=== PATIENT | female | born 1995 | race Caucasian/White ===

== ENCOUNTER 2016-06-15 14:41 | Emergency (ER) | payer MEDICAID ==
--- NOTE | 2016-06-15 15:28 | PD ---
HPI Chief Complaint NST in office due to decreased movement with small deceleration noted. Sent here for evaluation Date Seen: Jun 15, 2016 Time Seen: 15:10 Travel History International Travel<30 Days: No Contact w/Intl Traveler<30Days: No Known Affected Area: No History of Present Illness HPI 20yo at 60h2veh c/o decreased FM this morning. After deceleration of FHR in office patient sent here for evaluation Para: 0 : 1 History Past Medical History Narrative Medical Hypothyroidism diagnosed this Past Surgical History Surgical History: No Previous Surgery Family History Family History: Negative Social History Alcohol Use: No Tobacco Use: No Substance Abuse: No Allergies-Medications (Allergen,Severity, Reaction): Coded Allergies: No Known Allergies (Verified , 11/17/15) Home Meds No Active Prescriptions or Reported Meds Review of Systems Except as stated in HPI: all other systems reviewed are Neg Physical Exam Narrative GENERAL: Well-nourished, well-developed patient. SKIN: Warm and dry. HEAD: Normocephalic and atraumatic. EYES: No scleral icterus. No injection or drainage. ENT: No nasal drainage noted. Mucous membranes pink. Airway patent. NECK: Supple, trachea midline. No JVD. CARDIOVASCULAR: Regular rate and rhythm without murmurs, gallops, or rubs. RESPIRATORY: Breath sounds equal bilaterally. No accessory muscle use. BREASTS: Bilateral exam showed no masses , no retractions, no nipple discharge. ABDOMEN/GI: Abdomen soft, non-tender, bowel sounds present, no rebound, no guarding Gravid to [-] 37weeks size Fundal Height:37 [-] GENITOURINARY: External Genitalia: intact and normal in appearance BUS glands: [-]nl Cervix: [-]deferred Dilatation: [-] Effacement: [-] Station: [-] Presentation: [-] Membranes: [intact or ruptured] Uterine Contractions: [-] FHT's: Category: [-] 1 Baseline: [-] 145 Reactive: [-] moderate Variability: [-] moderate Decels: [-] absent EXTREMITIES: No cyanosis or edema. BACK: Nontender without obvious deformity. No CVA tenderness. NEUROLOGICAL: Awake and alert. Motor and sensory grossly within normal limits. Five out of 5 muscle strength in all muscle groups. Normal speech. Data Data Vital Signs Reviewed: Yes MDM Medical Record Reviewed: Yes Narrative Course / MDM BPP 12/15 monitoring absent of decelerations since arrival Patient has followup tomorrow Plan Discharge with followup as scheduled Diagnosis Diagnosis: Primary Impression: Decreased movement affecting management of in third trimester Additional Impressions: Hypothyroidism affecting in third trimester 36 weeks gestation of Disposition: DISCHARGE HOME Scripts No Active Prescriptions or Reported Meds Sophie Small MD Jun 15, 2016 15:28
== END 2016-06-15 16:04 | disposition home or self-care (01) ==
LOC: HOBED 14:41
DX: O36.8130 Decreased fetal movements, third trimester, not applicable or unspecified (principal); E03.9 Hypothyroidism, unspecified; Z3A.36 36 weeks gestation of pregnancy
CPT/HCPCS: 76816; 76819

== ENCOUNTER 2016-07-06 02:44 | Inpatient (IN) | payer MEDICAID ==
[~2016-07-06] VITALS: Ht 162.6 cm; Wt 81.2 kg
[2016-07-06] VITALS (88 sets, daily range): BP systolic 93–142; BP diastolic 46–97; PULSE 51–197; RESP 1–20; TEMP 97.7–98.6; O2SAT 97
[2016-07-06] MEDS ORDERED: LACTATED RINGER'S 1000 ML INJ 1,000 ML IV SCH (03:19)
[2016-07-06] MEDS ORDERED: LACTATED RINGER'S 1000 ML INJ 1,000 ML IV PRN (03:19)
--- NOTE | 2016-07-06 03:20 | PD ---
HPI Chief Complaint Contractions, rupture membranes Date Seen: Jul 06, 2016 Time Seen: 03:00 Travel History International Travel<30 Days: No Contact w/Intl Traveler<30Days: No History of Present Illness HPI Ms. Costa is a 20-year-old G1 patient of Dr. Olson at 39 2/7 weeks (MELODY 07/11) who presents with complaint of ruptured membranes and contractions. Patient reports gross rupture of membranes approximately 2 hours ago; patient reports that contractions started shortly afterwards. Over the past 2 hours, patient reports increased pain with contractions. Patient reports that she is GBS negative. Patient has history of hypothyroidism diagnosed in ; patient takes Synthroid 50 g daily. Patient also reports smoking approximately 210 cigarettes daily. No drinking or drug use. Patient otherwise denies complications. Para: 0 : 1 History Past Medical History Narrative Medical Hypothyroidism diagnosed during Tobacco abuse during Obstetric History Obstetric History G1 Past Surgical History Narrative Surgical Tonsillectomy Family History Narrative Family History No significant family history reported Social History Alcohol Use: No Tobacco Use: Yes (210 cigarettes daily) Substance Abuse: No Allergies-Medications (Allergen,Severity, Reaction): Coded Allergies: No Known Allergies (Verified , 11/17/15) Home Meds No Active Prescriptions or Reported Meds Review of Systems General / Constitutional: No: Fever, Chills Eyes: No: Blurred Vision HENT: No: Headaches Cardiovascular: No: Chest Pain or Discomfort Respiratory: Short of Breath (intermittent during ), No: Cough Gastrointestinal: No: Nausea, Vomiting Psychiatric: No: Anxiety Physical Exam Narrative Vital signs: Temp 90 8F, HR 89, BP 132/84, respirations 18 GENERAL: Well-nourished, well-developed patient. SKIN: Warm and dry. HEAD: Normocephalic and atraumatic. EYES: No scleral icterus. No injection or drainage. ENT: No nasal drainage noted. Mucous membranes pink. Airway patent. NECK: Supple, trachea midline. CARDIOVASCULAR: Regular rate and rhythm without murmurs; normal peripheral perfusion RESPIRATORY: Clear to escalation bilaterally; normal rate ABDOMEN/GI: Abdomen soft, non-tender, bowel sounds present, no rebound, no guarding Gravid EXTREMITIES: No cyanosis or edema. NEUROLOGICAL: Awake and alert. Motor and sensory function grossly within normal limits. GENITOURINARY: Exam performed by nursing staff External Genitalia: intact and normal in appearance Cervix: Dilatation: 1 Effacement: 80% Station: -1 Presentation: Vertex Membranes: Ruptured Uterine Contractions: Q13 minutes FHT's: Category: 1 Baseline: 125 Reactive: Yes Variability: Moderate Decels: None Data Data Vital Signs Reviewed: Yes Orders Ob (2e) Additional Admit Info (07/06/16 02:56) MDM Medical Record Reviewed: Yes Narrative Course / MDM 20-year-old G1 patient of Dr. Olson at 39 2/7 weeks (MELODY 07/11/2016) Assessment: Category 1 rhythm Gross rupture of membranes at approximately 0100 07/06 Cervix 12/80%/-1, vertex GBS negative Maternal history of hypothyroidism controlled with levothyroxine 50 g daily Plan: Will plan to admit patient for labor Will obtain routine labs (Blood typing/hold clot/UA) Continue EFM; continue to monitor maternal vitals Patient requests epidural Per review of records (Dr. Olson's patient), will plan for TSH testing post- Scripts No Active Prescriptions or Reported Meds Audie Eldridge MD R2 Jul 06, 2016 03:19
[2016-07-06] MEDS ORDERED: LIDOCAINE HCL 1% 50 ML VIAL INFIL PRN (03:30)
[2016-07-06] MEDS ORDERED: MINERAL OIL 10 ML VIAL TOPICAL PRN (03:30)
[2016-07-06] MEDS ORDERED: CITRIC ACID-SODIUM CITRATE LIQ 30 ML UDC PO SCH (03:30)
[2016-07-06] MEDS ORDERED: OXYTOCIN 30 UNITS-500ML PREMIX 500 ML IV ONE ×2 (03:30→14:00)
[2016-07-06] MEDS ORDERED: LIDOCAINE HCL 1% 50 ML VIAL I-DERMAL PRN (03:30)
[2016-07-06] MEDS ORDERED: SODIUM CHLORID 0.9% 500 ML INJ 500 ML IV PRN (03:30)
--- NOTE | 2016-07-06 03:35 | HHI.HP ---
History & Physical H&P OB ED Note (Detail) Patient Name: Raina Costa Unit Number: [id number] Date of : 1995 Patient Status: Admitted Inpatient Attending Doctor: Howie Olson MD HPI HPI Chief Complaint Contractions, rupture membranes Date Seen: Jul 06, 2016 Time Seen: 03:00 Travel History International Travel<30 Days: No Contact w/Intl Traveler<30Days: No History of Present Illness HPI Ms. Costa is a 20-year-old G1 patient of Dr. Olson at 39 2/7 weeks (MELODY 07/11) who presents with complaint of ruptured membranes and contractions. Patient reports gross rupture of membranes approximately 2 hours ago; patient reports that contractions started shortly afterwards. Over the past 2 hours, patient reports increased pain with contractions. Patient reports that she is GBS negative. Patient has history of hypothyroidism diagnosed in ; patient takes Synthroid 50 g daily. Patient also reports smoking approximately 210 cigarettes daily. No drinking or drug use. Patient otherwise denies complications. Para: 0 : 1 History (Limited) History Past Medical History Narrative Medical Hypothyroidism diagnosed during Tobacco abuse during Obstetric History Obstetric History G1 Past Surgical History Narrative Surgical Tonsillectomy Family History Narrative Family History No significant family history reported Social History Alcohol Use: No Tobacco Use: Yes (210 cigarettes daily) Substance Abuse: No Allergies-Medications Allergies-Medications (Allergen,Severity, Reaction): Coded Allergies: No Known Allergies (Verified , 11/17/15) Home Meds No Active Prescriptions or Reported Meds ROS Review of Systems General / Constitutional: No: Fever, Chills Eyes: No: Blurred Vision HENT: No: Headaches Cardiovascular: No: Chest Pain or Discomfort Respiratory: Short of Breath (intermittent during ), No: Cough Gastrointestinal: No: Nausea, Vomiting Psychiatric: No: Anxiety Physical Exam Physical Exam Narrative Vital signs: Temp 90 8F, HR 89, BP 132/84, respirations 18 GENERAL: Well-nourished, well-developed patient. SKIN: Warm and dry. HEAD: Normocephalic and atraumatic. EYES: No scleral icterus. No injection or drainage. ENT: No nasal drainage noted. Mucous membranes pink. Airway patent. NECK: Supple, trachea midline. CARDIOVASCULAR: Regular rate and rhythm without murmurs; normal peripheral perfusion RESPIRATORY: Clear to escalation bilaterally; normal rate ABDOMEN/GI: Abdomen soft, non-tender, bowel sounds present, no rebound, no guarding Gravid EXTREMITIES: No cyanosis or edema. NEUROLOGICAL: Awake and alert. Motor and sensory function grossly within normal limits. GENITOURINARY: Exam performed by nursing staff External Genitalia: intact and normal in appearance Cervix: Dilatation: 1 Effacement: 80% Station: -1 Presentation: Vertex Membranes: Ruptured Uterine Contractions: Q13 minutes FHT's: Category: 1 Baseline: 125 Reactive: Yes Variability: Moderate Decels: None Data Data Data Vital Signs Reviewed: Yes Orders Ob (2e) Additional Admit Info (07/06/16 02:56) MDM MDM Medical Record Reviewed: Yes Narrative Course / MDM 20-year-old G1 patient of Dr. Olson at 39 2/7 weeks (MELODY 07/11/2016) Assessment: Category 1 rhythm Gross rupture of membranes at approximately 0100 07/06 Cervix 12/80%/-1, vertex GBS negative Maternal history of hypothyroidism controlled with levothyroxine 50 g daily Plan: Will plan to admit patient for labor Will obtain routine labs (Blood typing/hold clot/UA) Continue EFM; continue to monitor maternal vitals Patient requests epidural Per review of records (Dr. Olson's patient), will plan for TSH testing post- Audie Eldridge MD R2 Jul 06, 2016 03:34
[2016-07-06] MEDS ORDERED: SODIUM CHLOR 0.9% 1000 ML INJ 1,000 ML IV PRN (03:39)
[2016-07-06 03:58] LABS: AUTOMATED NEUTROPHIL # 8.7 TH/MM3 (1.8-7.7); BASOPHIL # 0.1 TH/MM3 (0-0.2); BASOPHIL % 0.5 % (0.0-2.0); EOSINOPHIL # 0.3 TH/MM3 (0-0.4); EOSINOPHIL % 1.9 % (0.0-4.0); HEMO FLAGS DIFF FINAL; LYMPH % 27.2 % (9.0-44.0); LYMPHOCYTE # 3.8 TH/MM3 (1.0-4.8); MEAN CELL VOLUME 86.3 FL (80.0-100.0); MEAN CORPUSCULAR HEMOGLOBIN 29.5 PG (27.0-34.0); MEAN CORPUSCULAR HGB CONC 34.2 % (32.0-36.0); MONO % 7.7 % (0.0-8.0); NEUT % 62.7 % (16.0-70.0); PLATELET COUNT 263 TH/MM3 (150-450); RED BLOOD COUNT 4.41 MIL/MM3 (4.00-5.30); WHITE BLOOD COUNT 13.9 TH/MM3 (4.0-11.0)
[2016-07-06] MEDS ORDERED: CALNTAB (03:59)
[2016-07-06] MEDS ORDERED: LEVO50TA4 PO (03:59)
[2016-07-06 04:05] LABS: BACTERIA, URINE RARE /hpf; BLOOD, URINE TRACE (NEG); COMMENT (UR) CULT NOT INDICATED; CULTURE IF INDICATED CULT NOT INDICATED; GLUCOSE,URINE NEG (NEG); KETONE, URINE NEG (NEG); MUCUS URINE FEW /lpf (OCC); NITRITE,URINE NEG (NEG); PH, URINE 5.5 (5.0-8.5); SQUAMOUS EPITHELIAL CELL URINE 10 /hpf (0-5); URINE COLOR YELLOW (YELLW/STRAW)
[2016-07-06] MEDS ORDERED: fentaNYL 2MCG-BUPIV 0.125% INJ 100 ML ONE (04:11)
[2016-07-06] MEDS ORDERED: NO SYSTEM NARCOTICS XX PRN (05:45)
[2016-07-06] MEDS ORDERED: ePHEDrine/NS 25 MG/5 ML SYR IV PRN (05:45)
[2016-07-06] MEDS ORDERED: fentaNYL 2MCG-BUPIV 0.125% 100 ML EPIDURAL SCH (05:45)
[2016-07-06] MEDS ORDERED: DO NOT ADMINISTER ANTICOAGULANTS XX PRN (05:45)
[2016-07-06] MEDS ORDERED: OXYTOCIN 30 UNITS/NS 500ML PREMIX IV SCH (08:00)
--- NOTE | 2016-07-06 13:58 | PD.OB.DELI ---
Anesthesia: Epidural Episiotomy: None Vaginal Delivery: Normal, Vacuum Nuchal Cord: None Delayed cord clamping (45 sec): Yes Infant: Male One Minute : 8 Five Minute : 9 Weight: 7/8 Care: Suctioned, Spontaneous crying, Responded to stimulation Placenta: Spontaneous delivery, Uterus explored +, 3 vessel cord Laceration: Perineal laceration, 2 deg Repair: Vicryl running Additional Information nice vacuum delivery of Yo Vacuum thru 3 uterine contractions with no pulloffs. Second degree perineal tear and first degree tear of right labia repaired with 3 -0 vicryl Howie Olson MD Jul 06, 2016 13:58
[2016-07-06] MEDS ORDERED: BENZOCAINE 20% TOPICAL SPRAY 60 ML CAN TOPICAL PRN (14:00)
[2016-07-06] MEDS ORDERED: ONDANSETRON ODT 4 MG TAB PO PRN (14:00)
[2016-07-06] MEDS ORDERED: oxyCODONE/ACETAMINOPHEN 5 MG/325 MG TAB PO PRN (14:00)
[2016-07-06] MEDS ORDERED: ACETAMINOPHEN 325 MG TAB PO PRN (14:00)
[2016-07-06] MEDS ORDERED: ALUMINUM/MAGNESIUM/SIMETH 30 ML CUP PO PRN (14:00)
[2016-07-06] MEDS ORDERED: ZOLPIDEM TARTRATE 5 MG TAB PO PRN (14:00)
[2016-07-06] MEDS ORDERED: SODIUM CHLORIDE 0.9% FLUSH 5 ML FLUSH IV PRN (14:00)
[2016-07-06] MEDS: IBUPROFEN 600 MG TAB PO PRN ×2 (14:43→21:13)
[2016-07-06] MEDS ORDERED: DEXTROSE (INFANT/PEDS) GEL 2.5 ML/GM (40%) TUBE ONE (15:02)
[2016-07-06] MEDS ORDERED: MEASLES, MUMPS, RUBELLA VACCINE 0.5 ML VIAL SQ ONE (16:00)
[2016-07-06] MEDS ORDERED: DIPHTH/TETANUS/ACEL PERTUSSIS (BOOSTER) 0.5 ML VIAL/PFS IM ONE (16:00)
[2016-07-06] MEDS: WITCH HAZEL 50%/GLYCERIN 12.5% 40 PAD JAR TOPICAL PRN (16:35)
[2016-07-06] MEDS: oxyCODONE/ACETAMINOPHEN 5 MG/325 MG TAB PO PRN (16:36)
[2016-07-06] MEDS ORDERED: SODIUM CHLORIDE 0.9% FLUSH 5 ML FLUSH IV SCH (21:00)
[2016-07-06] MEDS: DOCUSATE SODIUM 50 MG/SENNA 8.6 MG TAB PO PRN (21:12)
[2016-07-07] MEDS: IBUPROFEN 600 MG TAB PO PRN ×2 (07:55→14:30)
[2016-07-07 08:00] VITALS: BP 111/67; PULSE 58; RESP 16; TEMP 98.4
--- NOTE | 2016-07-07 09:01 | HHI.OB ---
Subjective Post Day: 1 Objective Vitals/I&O Vital Signs Date Time Temp Pulse Resp B/P Pulse Ox O2 Delivery O2 Flow Rate FiO2 07/06/16 21:00 97.7 07/06/16 21:00 51 136/82 07/06/16 21:00 20 97 07/06/16 14:35 98.6 18 07/06/16 14:31 56 121/71 07/06/16 14:18 52 135/73 07/06/16 14:16 114/92 07/06/16 14:01 57 125/65 07/06/16 13:32 70 112/69 07/06/16 13:15 112/88 07/06/16 13:01 65 93/46 07/06/16 12:46 117/95 07/06/16 12:31 57 117/77 07/06/16 12:15 57 139/96 07/06/16 12:01 68 129/80 07/06/16 11:50 71 07/06/16 11:46 67 128/81 07/06/16 11:40 66 07/06/16 11:35 61 07/06/16 11:31 60 132/76 07/06/16 11:30 60 07/06/16 11:25 89 07/06/16 11:20 81 07/06/16 11:16 79 142/83 07/06/16 11:15 59 07/06/16 11:10 88 07/06/16 11:05 113 07/06/16 11:01 78 121/78 07/06/16 11:00 73 07/06/16 10:55 83 07/06/16 10:50 72 07/06/16 10:45 81 140/84 07/06/16 10:40 94 07/06/16 10:35 75 07/06/16 10:31 76 124/65 07/06/16 10:30 77 07/06/16 10:25 75 07/06/16 10:20 79 07/06/16 10:16 70 125/79 07/06/16 10:15 78 07/06/16 10:10 83 07/06/16 10:05 74 07/06/16 10:00 85 118/90 07/06/16 10:00 74 07/06/16 09:55 88 07/06/16 09:50 69 07/06/16 09:47 113 126/59 07/06/16 09:45 79 07/06/16 09:45 98.1 18 07/06/16 09:40 72 07/06/16 09:35 76 07/06/16 09:30 78 07/06/16 09:30 75 129/80 07/06/16 09:28 18 07/06/16 09:25 84 07/06/16 09:20 81 07/06/16 09:16 68 131/74 07/06/16 09:15 74 07/06/16 09:10 83 07/06/16 09:05 85 07/06/16 09:00 81 123/76 07/06/16 09:00 82 07/06/16 08:55 66 Objective Remarks GENERAL: Well-nourished, well-developed patient. CARDIOVASCULAR: Regular rate and rhythm without murmurs, gallops, or rubs. RESPIRATORY: Breath sounds equal bilaterally. No accessory muscle use. ABDOMEN/GI: Abdomen soft, non-tender. Fundus: Firm, non-tender at umbilicus. GENITOURINARY: Light to moderate bleeding. EXTREMITIES: No cyanosis or edema, non-tender, without signs of DVT. Medications and IVs Current Medications Medications (Trade) Dose Ordered Sig/Maximus Route Start Time Stop Time Status Last Admin (NS Flush) 2 ml BID IV 07/06/16 21:00 (NS Flush) 2 ml UNSCH PRN IV 07/06/16 14:00 (Tylenol) 650 mg Q4H PRN PO 07/06/16 14:00 (Motrin) 600 mg Q6H PRN PO 07/06/16 14:00 07/07/16 07:55 (Percocet 5-325 Mg) 1 tab Q4H PRN PO 07/06/16 14:00 07/06/16 16:36 (Percocet 5-325 Mg) 2 tab Q4H PRN PO 07/06/16 14:00 (Americaine 20% Top Spr) 1 spray Q4H PRN TOPICAL 07/06/16 14:00 07/06/16 16:35 (Tucks Pads) 1 applic QID PRN TOPICAL 07/06/16 14:00 07/06/16 16:35 (Aracelis-Colace) 2 tab Q12H PRN PO 07/06/16 14:00 07/06/16 21:12 (Ambien) 5 mg HS PRN PO 07/06/16 14:00 (Mag-Al Plus Susp Liq) 15 ml Q8H PRN PO 07/06/16 14:00 (Zofran Odt) 4 mg Q6H PRN PO 07/06/16 14:00 Assessment/Plan Problem List: (1) Normal vaginal delivery Plan: routine Assessment and Plan pt doing well c/o pain at 8 when she moves, encouraged to take percocet for pain routine Discharge Planning consider dc home tomorrow Sandra Barboza Jul 07, 2016 09:01
[2016-07-07] MEDS: oxyCODONE/ACETAMINOPHEN 5 MG/325 MG TAB PO PRN ×3 (09:06→21:41)
[2016-07-07] MEDS: DOCUSATE SODIUM 50 MG/SENNA 8.6 MG TAB PO PRN (14:30)
[2016-07-07 20:00] VITALS: BP 123/78; PULSE 56; RESP 18; TEMP 98.1
[2016-07-08 08:25] VITALS: BP 141/84; PULSE 61; RESP 18; TEMP 97.8
[2016-07-08] MEDS ORDERED: OXYC1TAB63 PO (08:36)
[2016-07-08] MEDS ORDERED: IBUP-232 PO (08:36)
--- NOTE | 2016-07-08 09:44 | HHI.OB ---
Subjective Post Day: 2 Objective Vitals/I&O Vital Signs Date Time Temp Pulse Resp B/P Pulse Ox O2 Delivery O2 Flow Rate FiO2 07/07/16 20:00 123/78 07/07/16 20:00 98.1 56 18 Objective Remarks GENERAL: Well-nourished, well-developed patient. CARDIOVASCULAR: Regular rate and rhythm without murmurs, gallops, or rubs. RESPIRATORY: Breath sounds equal bilaterally. No accessory muscle use. ABDOMEN/GI: Abdomen soft, non-tender. Fundus: Firm, non-tender at umbilicus. GENITOURINARY: Light to moderate bleeding. EXTREMITIES: No cyanosis or edema, non-tender, without signs of DVT. Medications and IVs Current Medications Medications (Trade) Dose Ordered Sig/Maximus Route Start Time Stop Time Status Last Admin (NS Flush) 2 ml BID IV 07/06/16 21:00 (NS Flush) 2 ml UNSCH PRN IV 07/06/16 14:00 (Tylenol) 650 mg Q4H PRN PO 07/06/16 14:00 (Motrin) 600 mg Q6H PRN PO 07/06/16 14:00 07/07/16 14:30 (Percocet 5-325 Mg) 1 tab Q4H PRN PO 07/06/16 14:00 07/07/16 21:41 (Percocet 5-325 Mg) 2 tab Q4H PRN PO 07/06/16 14:00 (Americaine 20% Top Spr) 1 spray Q4H PRN TOPICAL 07/06/16 14:00 07/06/16 16:35 (Tucks Pads) 1 applic QID PRN TOPICAL 07/06/16 14:00 07/06/16 16:35 (Aracelis-Colace) 2 tab Q12H PRN PO 07/06/16 14:00 07/07/16 14:30 (Ambien) 5 mg HS PRN PO 07/06/16 14:00 (Mag-Al Plus Susp Liq) 15 ml Q8H PRN PO 07/06/16 14:00 (Zofran Odt) 4 mg Q6H PRN PO 07/06/16 14:00 Assessment/Plan Problem List: (1) Normal vaginal delivery Plan: routine Assessment and Plan day #2 pt doing well pain well managed with oral pain medication infant having difficulty with sugar, may have to stay routine Discharge Planning dc home today Sandra Barboza Jul 08, 2016 09:44
--- NOTE | 2016-07-08 09:48 | HHI.DCPOC ---
Discharge Care Plan Diagnosis: (1) Normal vaginal delivery Your Health Problems Are: Vaginal delivery Report Symptoms to Your Doctor -Temperate above 100.5 degrees -Redness, of incision or excessive or foul smelling drainage -Unusual pain or calf pain -Increased vaginal bleeding -Painful or difficulty urinating -Feelings of extreme sadness or anxiety after 2 weeks Goals to Promote Your Health * To prevent worsening of your condition and complications * To maintain your health at the optimal level Directions to Meet Your Goals Take your medications as prescribed Follow your dietary instruction Follow activity as directed Ensure plenty of rest for recovery Drink fluids for hydration Keep your appointments as scheduled Take your immunizations and boosters as scheduled If your symptoms worsen call your PCP, if no PCP go to Urgent Care Center or Emergency Room Smoking is Dangerous to Your Health. Avoid second hand smoke Call the 24-hour crisis hotline for domestic abuse at Sandra Barboza Jul 08, 2016 09:48
--- NOTE | 2016-07-08 09:52 | HHI.DS ---
Admission Date Jul 06, 2016 at 02:57 Discharge Date: Jul 08, 2016 Admitting Diagnosis term srom Diagnosis: (1) Normal vaginal delivery Delivery Date: Jul 06, 2016 Vaginal Delivery: Normal Infant: Male Brief History 39 week srom . Hospital Course routine Pt Condition on Discharge: Good Discharge Disposition: Discharge Home Discharge Instructions Diet Instructions: As Tolerated, No Restrictions Additional Diet Instructions: Drink at least 8 - 16 oz bottles of water a day Activities You Can Perform: Shower Only-No Bath, Sitz Bath Activities to Avoid: Lifting/Bending, Sexual Activity Additional Activity Instruc.: No driving until off pain medications Do not lift anything heavier than your baby in an infant carrier Follow up Referrals: NOCTURNIST PHYSICIAN - 2 Weeks @ [facility] [place] New Medications: Ibuprofen (Ibuprofen) 600 Mg Tab 600 MG PO Q6H PRN CRAMPING #30 TAB Oxycodone-Acetaminophen (Oxycodone-Acetaminophen) 5-325 mg Tab 1 TAB PO Q4H moderate pain #15 TAB Continued Medications: Levothyroxine (Levothyroxine) 50 Mcg Tab 50 MCG PO DAILY Thyroid #30 Ref 0 TAB Vitamin (Calna) 1 Tab Tab Sandra Barboza Jul 08, 2016 09:52
[2016-07-08] MEDS: WITCH HAZEL 50%/GLYCERIN 12.5% 40 PAD JAR TOPICAL PRN (10:56)
[2016-07-08] MEDS: oxyCODONE/ACETAMINOPHEN 5 MG/325 MG TAB PO PRN (11:00)
== END 2016-07-08 11:40 | disposition home or self-care (01) | DRG 775 ==
LOC: HOBED 02:44 → H2EA 02:57 → H1EA 15:13
PROVIDERS: ADMIT Obstetrics & Gynecology; ATTEND Obstetrics & Gynecology
PROC: 10D07Z6 Extraction of Products of Conception, Vacuum, Via Natural or Artificial Opening (ICD-10-PCS; principal; 2016-07-06)
PROC: 0KQM0ZZ Repair Perineum Muscle, Open Approach (ICD-10-PCS; 2016-07-06)
PROC: 00HU33Z Insertion of Infusion Device into Spinal Canal, Percutaneous Approach (ICD-10-PCS; 2016-07-06)
PROC: 3E0R3CZ (ICD-10-PCS; 2016-07-06)
DX: O99.334 Smoking (tobacco) complicating childbirth (principal); E03.9 Hypothyroidism, unspecified; F17.210 Nicotine dependence, cigarettes, uncomplicated; O99.284 Endocrine, nutritional and metabolic diseases complicating childbirth; Z3A.39 39 weeks gestation of pregnancy; O70.1 Second degree perineal laceration during delivery; Z37.0 Single live birth
CPT/HCPCS: 81001; 85025; 86900; 86901; 90715; 99285; J2590; J7120

== ENCOUNTER 2017-04-18 12:09 | Inpatient (IN) | payer MEDICAID, OTHER ==
[~2017-04-18] VITALS: Ht 162.6 cm; Wt 62.5 kg
[2017-04-18] VITALS (8 sets, daily range): BP systolic 99–123; BP diastolic 58–74; PULSE 80–119; RESP 16–18; TEMP 96.9–98; O2SAT 95–100
[~2017-04-18 12:09] MED LIST: CALNTAB; IBUP-232 PO; LEVO50TA4 PO; OXYC1TAB63 PO
[2017-04-18] MEDS ORDERED: ETONOGESTREL I-DERMAL (12:38)
[2017-04-18] MEDS ORDERED: KETOROLAC TROMETHAMINE 60 MG/2 ML (IM) VIAL IM ONE (12:45)
--- NOTE | 2017-04-18 12:46 | PD ---
HPI Chief Complaint: Edema Time Seen by Provider: 12:43 Travel History International Travel<30 days: No Contact w/Intl Traveler<30days: No Traveled to known affect area: No History of Present Illness HPI Patient presents with acute onset of left lower extremity pain and swelling when she awoke this morning. She is on implanted control and is a smoker. Reports slight shortness of breath with discomfort on deep inspiration. Denies . Denies nausea vomiting diarrhea or fever. PFSH Past Medical History Asthma: Yes ( CHILD) Anxiety: Yes Depression: Yes Diabetes: No Diminished Hearing: No Immunizations Current: Yes Thyroid Disease: Yes (hx of hypo while ) Tetanus Vaccination: Unknown Influenza Vaccination: No ?: Not LMP: currently states for months since enxplanon implant Menopausal: No : 0 Past Surgical History Surgical History: No Previous Surgery Tonsillectomy: Yes Social History Alcohol Use: Yes (occas. beer) Tobacco Use: Yes (3/4 ppd ) Substance Use: No (OCCASIONAL MARIJUANA PRIOR TO /METHAMPHETAMINES REMOTE PAST) Allergies-Medications (Allergen,Severity, Reaction): Coded Allergies: No Known Allergies (Verified Adverse Reaction, Unknown, 04/18/17) Reported Meds & Prescriptions Reported Meds & Active Scripts Active Reported [enxplanon implant] Unknown Strength Unknown Dose I-DERMAL DIRECTED Review of Systems Respiratory: Positive: Shortness of Breath Musculoskeletal: Positive: Edema, Pain Physical Exam Narrative GENERAL: Well-nourished, well-developed patient. SKIN: Focused skin assessment warm/dry. HEAD: Normocephalic. EYES: No scleral icterus. No injection or drainage. NECK: Supple, trachea midline. No JVD or lymphadenopathy. CARDIOVASCULAR: Regular rate and rhythm without murmurs, gallops, or rubs. RESPIRATORY: Breath sounds equal bilaterally. No accessory muscle use. GASTROINTESTINAL: Abdomen soft, non-tender, nondistended. MUSCULOSKELETAL: No cyanosis, or edema. BACK: Nontender without obvious deformity. No CVA tenderness. Examination lower extremities reveals increased size and erythema of the left lower extremity. Bilateral femoral pulses are palpated. Difficult to ascertain a left dorsal pedis pulse, right dorsal pedis pulse palpated Data Data Last Documented VS Vital Signs Date Time Temp Pulse Resp B/P (MAP) Pulse Ox O2 Delivery O2 Flow Rate FiO2 04/18/17 14:30 88 16 99 Nasal Cannula 2.00 04/18/17 14:15 99/71 (80) 04/18/17 12:14 97.5 Orders Orders Us Leg Venous Doppler (04/18/17 ) Ketorolac Inj (Toradol Inj) (04/18/17 12:45) Complete Blood Count With Diff (04/18/17 13:30) Comprehensive Metabolic Panel (04/18/17 13:30) D-Dimer (04/18/17 13:30) Act Partial Throm Time (Ptt) (04/18/17 13:30) Prothrombin Time / Inr (Pt) (04/18/17 13:30) Iv Access Insert/Monitor (04/18/17 13:30) Ecg Monitoring (04/18/17 13:30) Oximetry (04/18/17 13:30) Oxygen Administration (04/18/17 13:30) Ct Pulmonary Angiogram (04/18/17 13:30) Sodium Chloride 0.9% Flush (Ns Flush) (04/18/17 13:30) Ketorolac Inj (Toradol Inj) (04/18/17 13:45) Iohexol 350 Inj (Omnipaque 350 Inj) (04/18/17 14:19) Enoxaparin Inj (Lovenox Inj) (04/18/17 14:45) Admit To Inpatient (04/18/17 ) Inpatient Certification (04/18/17 ) Admit Order (Ed Use Only) (04/18/17 ) Diet Heart Healthy (04/18/17 Dinner) Activity Oob With Assistance (04/18/17 15:19) Notify Dr: Other (04/18/17 15:19) Labs Laboratory Tests Test 04/18/17 13:44 White Blood Count 13.6 TH/MM3 Red Blood Count 5.69 MIL/MM3 Hemoglobin 15.3 GM/DL Hematocrit 48.5 % Mean Corpuscular Volume 85.2 FL Mean Corpuscular Hemoglobin 26.9 PG Mean Corpuscular Hemoglobin Concent 31.5 % Red Cell Distribution Width 14.9 % Platelet Count 301 TH/MM3 Mean Platelet Volume 7.2 FL Neutrophils (%) (Auto) 80.1 % Lymphocytes (%) (Auto) 12.1 % Monocytes (%) (Auto) 5.9 % Eosinophils (%) (Auto) 0.9 % Basophils (%) (Auto) 1.0 % Neutrophils # (Auto) 11.0 TH/MM3 Lymphocytes # (Auto) 1.6 TH/MM3 Monocytes # (Auto) 0.8 TH/MM3 Eosinophils # (Auto) 0.1 TH/MM3 Basophils # (Auto) 0.1 TH/MM3 CBC Comment DIFF FINAL Differential Comment Prothrombin Time 11.3 SEC Prothromb Time International Ratio 1.1 RATIO Activated Partial Thromboplast Time 25.8 SEC D-Dimer Quantitative (PE/DVT) 5.54 MG/L FEU Blood Urea Nitrogen 10 MG/DL Creatinine 0.92 MG/DL Random Glucose 84 MG/DL Total Protein 8.6 GM/DL Albumin 3.8 GM/DL Calcium Level 9.0 MG/DL Alkaline Phosphatase 146 U/L Aspartate Amino Transf (AST/SGOT) 19 U/L Alanine Aminotransferase (ALT/SGPT) 25 U/L Total Bilirubin 0.7 MG/DL Sodium Level 138 MEQ/L Potassium Level 3.7 MEQ/L Chloride Level 104 MEQ/L Carbon Dioxide Level 25.8 MEQ/L Anion Gap 8 MEQ/L Estimat Glomerular Filtration Rate 76 ML/MIN MDM Medical Decision Making Medical Screen Exam Complete: Yes Emergency Medical Condition: Yes Differential Diagnosis DVT, pulmonary embolism, clotting disorder Narrative Course Assessment and plan discussed with patient at bedside. Given permission to speak to her mother who is in sprain. Discussed the case with her as well. Last [address] Angiography 04/18/17 1330 Signed Impressions: Service Date/Time: Tuesday, April 18, 2017 14:08 - CONCLUSION: Prominent diffuse bilateral pulmonary emboli. Mark Negron MD Lower Extremity Ultrasound 04/18/17 0000 Signed Impressions: Service Date/Time: Tuesday, April 18, 2017 13:07 - CONCLUSION: Extensive left lower extremity DVT. Kenton Jc MD Physician Communication Physician Communication Spoke with Dr. Jeffries who is in agreement will admit Diagnosis Primary Impression: DVT (deep venous thrombosis) Qualified Codes: I82.4Y2 - Acute embolism and thrombosis of unspecified deep veins of left proximal lower extremity Additional Impression: PE (pulmonary thromboembolism) Bravo Lepe MD Apr 18, 2017 12:46
--- NOTE | 2017-04-18 13:38 | RADRPT ---
EXAM DATE/TIME: 04/18/2017 13:07 [facility] COMPARISON: No previous studies available for comparison. INDICATIONS : Left leg pain. MEDICAL HISTORY : Hypothyroidism. Depression. Anxiety. SURGICAL HISTORY : Tonsillectomy. ENCOUNTER: Initial ACUITY: 1 day PAIN SCORE: 6/10 LOCATION: Left leg. TECHNIQUE: Venous ultrasound of the leg was performed from the inguinal ligament to the proximal calf. Real-toma e, color Doppler and spectral tracing, compression and augmentation techniques were used. FINDINGS: Extensive thrombus seen of the iliac vein, common femoral vein, superficial femoral vein and extendin g distally below the knee into the posterior tibial vein. Thrombus is also seen in the greater saphen ous vein. Deep femoral vein appears patent. CONCLUSION: Extensive left lower extremity DVT. Kenton Jc MD on April 18, 2017 at 13:33 Board Certified Radiologist. This report was verified electronically.
[2017-04-18] MEDS ORDERED: KETOROLAC TROMETHAMINE 30 MG/ML (IVP) VIAL IV PUSH ONE (13:45)
[2017-04-18] MEDS: SODIUM CHLORIDE 0.9% FLUSH 10 ML FLUSH IVF PRN ×2 (13:46→20:27)
[2017-04-18 13:48] LABS: BASOPHIL # 0.1 TH/MM3 (0-0.2); EOSINOPHIL # 0.1 TH/MM3 (0-0.4); EOSINOPHIL % 0.9 % (0.0-4.0); HEMATOCRIT 48.5 % (35.0-46.0); LYMPH % 12.1 % (9.0-44.0); LYMPHOCYTE # 1.6 TH/MM3 (1.0-4.8); MEAN CELL VOLUME 85.2 FL (80.0-100.0); MEAN CORPUSCULAR HEMOGLOBIN 26.9 PG (27.0-34.0); MEAN CORPUSCULAR HGB CONC 31.5 % (32.0-36.0); MONO % 5.9 % (0.0-8.0); NEUT % 80.1 % (16.0-70.0); PLATELET COUNT 301 TH/MM3 (150-450); RED BLOOD COUNT 5.69 MIL/MM3 (4.00-5.30); RED CELL DISTRIBUTION WIDTH 14.9 % (11.6-17.2); WHITE BLOOD COUNT 13.6 TH/MM3 (4.0-11.0)
[2017-04-18 13:55] LABS: CHLORIDE 104 MEQ/L (98-107); POTASSIUM 3.7 MEQ/L (3.5-5.1); SODIUM (NA) 138 MEQ/L (136-145)
[2017-04-18 13:58] LABS: ANION GAP 8 MEQ/L (5-15); BICARBONATE 25.8 MEQ/L (21.0-32.0)
[2017-04-18 13:59] LABS: BLOOD UREA NITROGEN 10 MG/DL (7-18)
[2017-04-18 14:00] LABS: HEMO FLAGS DIFF FINAL
[2017-04-18 14:01] LABS: ALT (GPT) 25 U/L (10-53)
[2017-04-18 14:02] LABS: AST (GOT) 19 U/L (15-37); GLOMERULAR FILTRATION RATE 76 ML/MIN (>89)
[2017-04-18 14:03] LABS: TOTAL BILIRUBIN ADULT 0.7 MG/DL (0.2-1.0)
[2017-04-18 14:04] LABS: ALKALINE PHOSPHATASE 146 U/L (45-117)
[2017-04-18 14:09] LABS: APTT (PATIENT) 25.8 SEC (24.3-30.1); INTERNATIONAL NORMALIZED RATIO 1.1 RATIO; PROTHROMBIN TIME - PATIENT 11.3 SEC (9.8-11.6)
[2017-04-18] MEDS ORDERED: IOHEXOL 350 MG/ML 10 ML VIAL (for RAD DIAG) IVCONTRAST ONE (14:19)
--- NOTE | 2017-04-18 14:28 | RADRPT ---
EXAM DATE/TIME: 04/18/2017 14:08 [facility] COMPARISON: No previous studies available for comparison. INDICATIONS : Left lower extremity DVT. Evaluate for pulmonary embolism. IV CONTRAST: 65 cc Omnipaque 350 (iohexol) IV RADIATION DOSE: 6.43 CTDIvol (mGy) MEDICAL HISTORY : Deep venous thrombosis. SURGICAL HISTORY : Tonsillectomy. ENCOUNTER: Initial ACUITY: 1 day PAIN SCALE: 5/10 LOCATION: chest TECHNIQUE: Volumetric scanning of the chest was performed using a pulmonary embolism protocol MIP images were re constructed. Using automated exposure control and adjustment of the mA and/or kV according to patien t size, radiation dose was kept as low as reasonably achievable to obtain optimal diagnostic quality images. DICOM format image data is available electronically for review and comparison. Follow-up recommendations for detected pulmonary nodules are based at a minimum on nodule size and pa tient risk factors according to Fleischner Society Guidelines. FINDINGS: PULMONARY ARTERIES: There are bilateral filling defects in the pulmonary arteries especially involving the lower lung fie lds. There are filling defects also noted in some of the branches involving the upper lung jones. Th is is characteristic of bilateral diffuse pulmonary emboli. LUNGS: There is no consolidation or pneumothorax . No concerning pulmonary nodule is visualized. PLEURAE: There is no pleural thickening or pleural effusion. MEDIASTINUM: There is good visualization of the great vessels of the middle mediastinum. No evidence of mediastin al or hilar adenopathy/mass. MUSCULOSKELETAL: Within normal limits for patient age. MISCELLANEOUS: The visualized upper abdominal organs demonstrate no acute abnormality. CONCLUSION: Prominent diffuse bilateral pulmonary emboli. Mark Negron MD on April 18, 2017 at 14:24 Board Certified Radiologist. This report was verified electronically.
[2017-04-18] MEDS ORDERED: ENOXAPARIN SODIUM 60 MG/0.6 ML SYRINGE SQ ONE (14:45)
[2017-04-18] MEDS ORDERED: SODIUM CHLOR 0.9% 1000 ML INJ 1,000 ML IV ONE (15:30)
--- NOTE | 2017-04-18 16:08 | HHI.HP ---
[facility] No Primary Care Physician Admission Diagnosis PE /DVT Diagnoses: Chief Complaint: PE/DVT Travel History International Travel<30 Days: No Contact w/Intl Traveler <30 Da: No Traveled to Known Affected Are: No History of Present Illness 21-year-old white female being admitted for pulmonary emboli and DVT. Patient was in her usual state of health until yesterday at some point when she began experiencing some shortness of breath and chest pain. Since then she said the chest pain has gone up to a 9/10 at its worse. She says she's had a relatively dry cough since then as well and has felt some fevers and chills. Lower prompted her to come to the emergency department was when she woke up this morning and had felt intense pain in her left lower leg which would worsen when she would put any weight on it. She said she took some ibuprofen to no avail. Patient denies this ever occurring in the past. She denies any recent injury or puncture injury to her left leg. Denies any nausea or vomiting. Patient states she does have a Nexplanon in her left arm and does smoke, has been smoking since 11 years old. Case discussed with emergency department attending. Review of Systems Except as stated in HPI: all other systems reviewed are Neg Past Family Social History Past Medical History Hypothyroidism Past Surgical History None Allergies: Coded Allergies: No Known Allergies (Verified Allergy, Unknown, 04/18/17) Family History No history of pulmonary emboli Father with a history of throat cancer Social History Current smoker Physical Exam Vital Signs Vital Signs Date Time Temp Pulse Resp B/P (MAP) Pulse Ox O2 Delivery O2 Flow Rate FiO2 04/18/17 14:30 88 16 99 Nasal Cannula 2.00 04/18/17 14:20 16 04/18/17 14:15 88 16 99/71 (80) 100 Nasal Cannula 2.00 04/18/17 13:47 16 100 Nasal Cannula 2.00 04/18/17 13:47 100 Nasal Cannula 2.00 04/18/17 13:05 86 16 108/71 (83) 100 Nasal Cannula 2.00 04/18/17 12:29 16 97 Room Air 04/18/17 12:14 97.5 119 16 123/74 (90 95 Physical Exam VS: afebrile GENERAL: NAD, well nourished white female SKIN: Warm and dry. EYES: No scleral icterus. No injection or drainage. ENT: No nasal bleeding or discharge. Mucous membranes pink and moist. CARDIOVASCULAR: Regular rate and rhythm. no murmurs RESPIRATORY: No accessory muscle use. Clear to auscultation. Breath sounds equal bilaterally. GASTROINTESTINAL: Abdomen soft, non-tender, nondistended. Extremities: No clubbing, cyanosis. LL is moderate to severely edematous and discolored. She is tender to touch on her proximal to lower thigh and she has pain in her thigh elicited upon left foot dorsiflexion. Patient has decreased sensation to light touch on her left foot toes in comparison to the right. Has slightly diminished Refill at about 2-3 seconds on the left foot compared to the right. Right lower extremity appears normal with negative exam. MUSCULOSKELETAL: Adequate muscle bulk and tone in all 4 extremities. NEUROLOGICAL: Awake and alert. No obvious cranial nerve deficits. No facial droop nor slurred speech noted. PSYCHIATRIC: Appropriate mood and affect; insight and judgment normal. Laboratory Laboratory Tests Test 04/18/17 13:44 White Blood Count 13.6 Red Blood Count 5.69 Hemoglobin 15.3 Hematocrit 48.5 Mean Corpuscular Volume 85.2 Mean Corpuscular Hemoglobin 26.9 Mean Corpuscular Hemoglobin Concent 31.5 Red Cell Distribution Width 14.9 Platelet Count 301 Mean Platelet Volume 7.2 Neutrophils (%) (Auto) 80.1 Lymphocytes (%) (Auto) 12.1 Monocytes (%) (Auto) 5.9 Eosinophils (%) (Auto) 0.9 Basophils (%) (Auto) 1.0 Neutrophils # (Auto) 11.0 Lymphocytes # (Auto) 1.6 Monocytes # (Auto) 0.8 Eosinophils # (Auto) 0.1 Basophils # (Auto) 0.1 CBC Comment DIFF FINAL Differential Comment Prothrombin Time 11.3 Prothromb Time International Ratio 1.1 Activated Partial Thromboplast Time 25.8 D-Dimer Quantitative (PE/DVT) 5.54 Blood Urea Nitrogen 10 Creatinine 0.92 Random Glucose 84 Total Protein 8.6 Albumin 3.8 Calcium Level 9.0 Alkaline Phosphatase 146 Aspartate Amino Transf (AST/SGOT) 19 Alanine Aminotransferase (ALT/SGPT) 25 Total Bilirubin 0.7 Sodium Level 138 Potassium Level 3.7 Chloride Level 104 Carbon Dioxide Level 25.8 Anion Gap 8 Estimat Glomerular Filtration Rate 76 Result Diagram: 04/18/174 04/18/171343 Caprini VTE Risk Assessment Caprini VTE Risk Assessment: Mod/High Risk (score >= 2) Caprini Risk Assessment Model Point Value = 1 Point Value = 2 Point Value = 3 Point Value = 5 Age 41-60 Minor surgery BMI > 25 kg/m2 Swollen legs Varicose veins or History of unexplained or recurrent spontaneous Oral contraceptives or hormone replacement Sepsis (< 1 month) Serious lung disease, including pneumonia (< 1 month) Abnormal pulmonary function Acute myocardial infarction Congestive heart failure (< 1 month) History of inflammatory bowel disease Medical patient at bed rest Age 61-74 Arthroscopic surgery Major open surgery (> 45 min) Laparoscopic surgery (> 45 min) Malignancy Confined to bed (> 72 hours) Immobilizing plaster cast Central venous access Age >= 75 History of VTE Family history of VTE Factor V Leiden Prothrombin [id number] Lupus anticoagulant Anticardiolipin antibodies Elevated serum homocysteine Heparin-induced thrombocytopenia Other congenital or acquired thrombophilia Stroke (< 1 month) Elective arthroplasty Hip, pelvis, or leg fracture Acute spinal cord injury (< 1 month) Prophylaxis Regimen Total Risk Factor Score Risk Level Prophylaxis Regimen 0-1 Low Early ambulation 2 Moderate Order ONE of the following: *Sequential Compression Device (SCD) *Heparin 5000 units SQ BID 3-4 Higher Order ONE of the following medications: *Heparin 5000 units SQ TID *Enoxaparin/Lovenox 40 mg SQ daily (WT < 150 kg, CrCl > 30 mL/min) *Enoxaparin/Lovenox 30 mg SQ daily (WT < 150 kg, CrCl > 10-29 mL/min) *Enoxaparin/Lovenox 30 mg SQ BID (WT < 150 kg, CrCl > 30 mL/min) AND/OR *Sequential Compression Device (SCD) 5 or more Highest Order ONE of the following medications: *Heparin 5000 units SQ TID (Preferred with Epidurals) *Enoxaparin/Lovenox 40 mg SQ daily (WT < 150 kg, CrCl > 30 mL/min) *Enoxaparin/Lovenox 30 mg SQ daily (WT < 150 kg, CrCl > 10-29 mL/min) *Enoxaparin/Lovenox 30 mg SQ BID (WT < 150 kg, CrCl > 30 mL/min) AND *Sequential Compression Device (SCD) Assessment and Plan Assessment and Plan 21-year-old white female being admitted for pulmonary emboli Chest pain - Independently reviewed the CTA and see new acute findings the lung jones themselves. Radiology read shows pulm emboi. - Likely from pulmonary emboli, treat as below Pulmonary emboli - Most likely precipitating factors was patient's smoking history and control - We'll start Lovenox dosing and transition to novel oral anticoagulation tomorrow DVT - Same treatment as above for pulmonary emboli I counseled the patient reports a smoking cessation especially in her acute illness face as well as for future prevention. Case discussed with hematology, recommend patient to get hypercoagulable panel done in a few months after discharge. Physician Certification 2 Midnight Certification Type: Admission for Inpatient Services Order for Inpatient Services The services are ordered in accordance with Medicare regulations or non- Medicare payer requirements, as applicable. In the case of services not specified as inpatient-only, they are appropriately provided as inpatient services in accordance with the 2-midnight benchmark. Estimated LOS (days): 2 2 days is the estimated time the patient will need to remain in the hospital, assuming treatment plan goals are met and no additional complications. Post-Hospital Plan: Home Sanjiv White MD Apr 18, 2017 16:08
[2017-04-18] MEDS ORDERED: KETOROLAC TROMETHAMINE 30 MG/ML (IVP) VIAL IV PUSH PRN (20:00)
[2017-04-18] MEDS ORDERED: ZOLPIDEM TARTRATE 10 MG TAB PO PRN (20:00)
[2017-04-19] VITALS: BP 90/55; PULSE 87; RESP 18; TEMP 97.5; O2SAT 95
[2017-04-19] MEDS ORDERED: ENOXAPARIN SODIUM 60 MG/0.6 ML SYRINGE SQ SCH (06:00)
[2017-04-19 08:00] VITALS: BP 129/68; PULSE 94; RESP 18; TEMP 98.1; O2SAT 95
[2017-04-19] MEDS ORDERED: XARE15TA PO (10:11)
[2017-04-19] MEDS ORDERED: XARE20TA PO (10:11)
--- NOTE | 2017-04-19 10:11 | HHI.DCPOC ---
Discharge Care Plan Diagnosis: (1) PE (pulmonary thromboembolism) (2) DVT (deep venous thrombosis) Goals to Promote Your Health * To prevent worsening of your condition and complications * To maintain your health at the optimal level STOP SMOKING Directions to Meet Your Goals Take your medications as prescribed Follow your dietary instruction Follow activity as directed Keep your appointments as scheduled Take your immunizations and boosters as scheduled If your symptoms worsen call your PCP, if no PCP go to Urgent Care Center or Emergency Room Smoking is Dangerous to Your Health. Avoid second hand smoke Call the 24-hour hour crisis hotline for domestic abuse at Sanjiv White MD Apr 19, 2017 10:11
--- NOTE | 2017-04-19 10:26 | HHI.PR ---
Subjective Remarks Nursing denies any deterioration since last night. Patient reports her pain is still there and her leg but she has been able to ablate to the bathroom fine. Says that her shortness of breath is much better. Objective Vital Signs Date Time Temp Pulse Resp B/P (MAP) Pulse Ox O2 Delivery O2 Flow Rate FiO2 04/19/17 08:00 98.1 94 18 129/68 (88) 95 04/19/17 00:00 97.5 87 18 90/55 (67) 95 04/18/17 20:00 98.0 86 18 105/58 (74) 96 04/18/17 20:00 96 Nasal Cannula 2.00 04/18/17 16:20 84 16 110/71 (84) 99 04/18/17 16:00 96.9 97 18 114/67 (83) 96 04/18/17 15:10 80 16 104/73 (83) 99 04/18/17 14:30 88 16 99 Nasal Cannula 2.00 04/18/17 14:20 16 04/18/17 14:15 88 16 99/71 (80) 100 Nasal Cannula 2.00 04/18/17 13:47 16 100 Nasal Cannula 2.00 04/18/17 13:47 100 Nasal Cannula 2.00 04/18/17 13:05 86 16 108/71 (83) 100 Nasal Cannula 2.00 04/18/17 12:29 16 97 Room Air 04/18/17 12:14 97.5 119 16 123/74 (90) 95 I/O 04/18/17 04/18/17 04/18/17 04/19/17 04/19/17 04/19/17 07:00 15:00 23:00 07:00 15:00 23:00 Intake Total 1480 ml Balance 1480 ml Intake Oral 480 ml IV Total 1000 ml # Voids 2 Result Diagram: 04/18/17 1344 04/18/17 1344 Objective Remarks Very mild but improved swelling from yesterday and left lower extremity Unlabored breathing, no cyanosis, clear breath sounds bilaterally A/P Assessment and Plan PEs plus DVT - symptomatically better, patient is able to ambulate with some bearable pain. Tolerating sats well on RA. Xarelto. Patient was extensively counseled on the importance of smoking cessation and getting her a non-removed. She was also counseled on the importance of following up with a thrasher feeder for outpatient hypercoagulable panel testing in a few months. Anticipate discharge today. Sanjiv White MD Apr 19, 2017 10:26
[2017-04-19] MEDS ORDERED: PERC5TAB12 PO (17:16)
== END 2017-04-19 13:40 | disposition home or self-care (01) | DRG 176 ==
LOC: PHED 12:09 → PHEDA 15:21 → PH3B 16:17
PROVIDERS: ADMIT Hospitalist; ATTEND Hospitalist
PROC: 3E0F7GC Introduction of Other Therapeutic Substance into Respiratory Tract, Via Natural or Artificial Opening (ICD-10-PCS; principal; 2017-04-18)
DX: I26.99 Other pulmonary embolism without acute cor pulmonale (principal); I82.402 Acute embolism and thrombosis of unspecified deep veins of left lower extremity; F17.210 Nicotine dependence, cigarettes, uncomplicated; F41.9 Anxiety disorder, unspecified; F32.9 Major depressive disorder, single episode, unspecified; E03.9 Hypothyroidism, unspecified; Z80.8 Family history of malignant neoplasm of other organs or systems
CPT/HCPCS: 71275; 80053; 85025; 85379; 85610; 85730; 93971; 96372; 96374; J1650; J1885; J7030; Q9967

== ENCOUNTER 2017-04-19 15:32 | Emergency (ER) | payer MEDICAID ==
[~2017-04-19 15:32] MED LIST changes: -CALNTAB; +ETONOGESTREL I-DERMAL; -IBUP-232 PO; -LEVO50TA4 PO; -OXYC1TAB63 PO; +XARE15TA PO; +XARE20TA PO
[2017-04-19 15:34] VITALS: BP 109/67; PULSE 103; RESP 16; TEMP 97.6; O2SAT 93
--- NOTE | 2017-04-19 15:57 | PD ---
HPI Chief Complaint: Medical Clearance Time Seen by Provider: 15:56 Travel History International Travel<30 days: No Contact w/Intl Traveler<30days: No Traveled to known affect area: No History of Present Illness HPI 21-year-old female presents emergency department for evaluation of left lower extremity pain, chest pain and shortness of breath. Patient was discharged 2 hours ago from inpatient after a diagnosis of left lower extremity DVT and bilateral diffuse pulmonary emboli. She was going to the pharmacy to get her Xarelto filled when she decided that her pain was "too much to handle." She has no family here to help take care of her. This is not acutely worse from her discharge 2 hours ago. She states she was feeling this way when she was discharge. She denies any fever or chills. She has no other symptoms reported. PFSH Past Medical History Asthma: Yes ( CHILD) Anxiety: Yes Depression: Yes Diabetes: No Diminished Hearing: No Immunizations Current: Yes Thyroid Disease: Yes (hx of hypo while ) Tetanus Vaccination: < 5 Years Influenza Vaccination: Yes ?: Not Menopausal: No : 1 Para: 1 Past Surgical History Tonsillectomy: Yes Social History Alcohol Use: Yes (occas. beer) Tobacco Use: Yes (1 ppd) Substance Use: Yes (marijuana occasionally) Allergies-Medications (Allergen,Severity, Reaction): Coded Allergies: No Known Allergies (Verified Allergy, Unknown, 04/18/17) Reported Meds & Prescriptions Reported Meds & Active Scripts Active Percocet (Oxycodone-Acetaminophen) 5-325 mg Tab 1 Tab PO Q6H PRN Xarelto (Rivaroxaban) 20 Mg Tab 20 Mg PO DAILY start after 15 mg tab regimen is completed Xarelto (Rivaroxaban) 15 Mg Tab 15 Mg PO Q12HR Review of Systems Except as stated in HPI: all other systems reviewed are Neg Physical Exam Narrative GENERAL: Well-nourished, well-developed female patient, in no acute distress. SKIN: Focused skin assessment warm/dry. HEAD: Normocephalic. EYES: No scleral icterus. No injection or drainage. NECK: Supple, trachea midline. No JVD or lymphadenopathy. CARDIOVASCULAR: Tachycardic rate and rhythm without murmurs, gallops, or rubs. RESPIRATORY: Breath sounds equal bilaterally. No accessory muscle use. No inspiratory or expiratory wheeze. No rales or rhonchi. GASTROINTESTINAL: Abdomen soft, non-tender, nondistended. MUSCULOSKELETAL: No cyanosis. Nonpitting 2+ Left lower extremity edema. Distal pulses are palpable. Cap refill is within normal limits. BACK: Nontender without obvious deformity. No CVA tenderness. Data Data Last Documented VS Vital Signs Date Time Temp Pulse Resp B/P (MAP) Pulse Ox O2 Delivery O2 Flow Rate FiO2 04/19/17 16:51 93 16 113/69 (84) 96 Room Air 04/19/17 15:34 97.6 Orders Orders Rivaroxaban (Xarelto) (04/19/17 16:15) Acetaminophen (Tylenol) (04/19/17 17:00) Ed Discharge Order (04/19/17 17:12) Midazolam Inj (Versed Inj) (04/19/17 19:08) Fentanyl Inj (Fentanyl Inj) (04/19/17 19:09) Fentanyl Drip (Fentanyl Drip) (04/19/17 19:31) Midazolam 100 Mg/100 Ml Inj (Versed Inj) (04/19/17 19:31) MDM Medical Decision Making Medical Screen Exam Complete: Yes Emergency Medical Condition: Yes Medical Record Reviewed: Yes Differential Diagnosis PE versus bronchospasm versus chronic pain versus narcotic seeking versus pleuritic pain versus pneumonia Narrative Course 21-year-old female presents versus prominent for evaluation. Patient appears without distress. She is mildly tachycardic. Her lungs sounds are clear. She does have left lower extremity edema which to be consistent with her diagnosed DVT. I discussed the patient with my attending. We'll give her 1 dose of Xarelto here. She is driving so we cannot give her any narcotic pain control however we will give her a prescription for additional pain control. She is encouraged to follow-up with a primary care provider and discharged at this time. Diagnosis Primary Impression: Pain Additional Impressions: DVT (deep venous thrombosis) Qualified Codes: I82.409 - Acute embolism and thrombosis of unspecified deep veins of unspecified lower extremity Pulmonary embolism Qualified Codes: I26.99 - Other pulmonary embolism without acute cor pulmonale Referrals: Primary Care Physician Patient Instructions: Deep Venous Thrombosis (DC), General Instructions Additional Instructions: Follow-up with your primary care provider Follow-up with the math interventionist Continue medication as prescribed Return immediately with any acute worsening symptoms Med/Other Pt SpecificInfo: Prescription(s) given Scripts Oxycodone-Acetaminophen (Percocet) 5-325 mg Tab 1 TAB PO Q6H Y for PAIN GREATER THAN 6, #15 TAB 0 Refills Prov: Joanna Taylor 04/19/17 Disposition: 01 DISCHARGE HOME Condition: Stable Joanna Taylor Apr 19, 2017 15:57
[2017-04-19] MEDS ORDERED: RIVAROXABAN 15 MG TAB PO ONE (16:15)
[2017-04-19 16:51] VITALS: BP 113/69; PULSE 93; RESP 16; O2SAT 96
[2017-04-19] MEDS ORDERED: ACETAMINOPHEN 500 MG CPLT PO ONE (17:00)
[2017-04-19] MEDS ORDERED: PERC5TAB12 PO (17:16)
[2017-04-19] MEDS ORDERED: MIDAZOLAM HCL 5 MG/ML VIAL (1 ML) ONE (19:08)
[2017-04-19] MEDS ORDERED: MIDAZOLAM 100 MG/100 ML INJ 100 ML ONE (19:31)
[2017-04-19] MEDS ORDERED: fentaNYL DRIP 250 ML ONE (19:31)
== END 2017-04-19 17:30 | disposition home or self-care (01) ==
LOC: NEPE 15:32
DX: I82.409 Acute embolism and thrombosis of unspecified deep veins of unspecified lower extremity (principal); I26.99 Other pulmonary embolism without acute cor pulmonale; F17.200 Nicotine dependence, unspecified, uncomplicated; Z79.01 Long term (current) use of anticoagulants
CPT/HCPCS: 99284; J2250; J3010

== ENCOUNTER 2017-04-24 03:29 | Emergency (ER) | payer OTHER, MEDICAID ==
[~2017-04-24] VITALS: Ht 162.6 cm; Wt 57.0 kg
[~2017-04-24 03:29] MED LIST changes: -ETONOGESTREL I-DERMAL; +PERC5TAB12 PO
[2017-04-24 03:37] VITALS: BP 120/76; PULSE 100; RESP 18; TEMP 98; O2SAT 98
--- NOTE | 2017-04-24 04:00 | PD ---
HPI Chief Complaint: Alcohol/Drug Intoxication Time Seen by Provider: 03:50 Travel History International Travel<30 days: No Contact w/Intl Traveler<30days: No Traveled to known affect area: No History of Present Illness HPI 21-year-old female who is on Xarelto for treatment of pulmonary embolism and DVT. She presents under a [place] act initiated by the police department. She was found intoxicated at a bar after closing. The patient endorses alcohol use tonight. She believes that she may have fallen at one point and hit her head. She is complaining of hunger as well as persistent pain in the left leg secondary to DVT. No other complaints. PFSH Past Medical History Hx Anticoagulant Therapy: Yes Asthma: Yes ( CHILD) Anxiety: Yes Depression: Yes Cardiovascular Problems: Yes (DVT) Diabetes: No Diminished Hearing: No Respiratory: Yes (PE) Immunizations Current: Yes Thyroid Disease: Yes (hx of hypo while ) Tetanus Vaccination: < 5 Years Influenza Vaccination: Yes ?: Unknown LMP: UNK Menopausal: No : 1 Para: 1 Past Surgical History Tonsillectomy: Yes Social History Alcohol Use: Yes (occas. beer) Tobacco Use: Yes (1 ppd) Substance Use: Yes (marijuana occasionally) Allergies-Medications (Allergen,Severity, Reaction): Coded Allergies: No Known Allergies (Verified Allergy, Unknown, 04/24/17) Reported Meds & Prescriptions Reported Meds & Active Scripts Active Percocet (Oxycodone-Acetaminophen) 5-325 mg Tab 1 Tab PO Q6H PRN Xarelto (Rivaroxaban) 20 Mg Tab 20 Mg PO DAILY start after 15 mg tab regimen is completed Xarelto (Rivaroxaban) 15 Mg Tab 15 Mg PO Q12HR Review of Systems Except as stated in HPI: all other systems reviewed are Neg Physical Exam Narrative GENERAL: Well-developed well-nourished female who is intoxicated. SKIN: Warm and dry. HEAD: Atraumatic. Normocephalic. EYES: Pupils equal and round. No scleral icterus. No injection or drainage. ENT: No nasal bleeding or discharge. Mucous membranes pink and moist. NECK: Trachea midline. No JVD. CARDIOVASCULAR: Regular rate and rhythm. No murmur appreciated. RESPIRATORY: No accessory muscle use. Clear to auscultation. Breath sounds equal bilaterally. GASTROINTESTINAL: Abdomen soft, non-tender, nondistended. Hepatic and splenic margins not palpable. MUSCULOSKELETAL: No obvious deformities. No clubbing. No cyanosis. No edema. NEUROLOGICAL: Awake and alert. No obvious cranial nerve deficits. Motor grossly within normal limits. Slurred speech. PSYCHIATRIC: Insight impaired by intoxication. Data Data Last Documented VS Vital Signs Date Time Temp Pulse Resp B/P (MAP) Pulse Ox O2 Delivery O2 Flow Rate FiO2 04/24/17 03:37 98.0 100 18 120/76 (91) [address] Brain W/O Iv Contrast(Rout) (04/24/17 ) Ed Urine Pregnancytest Poc (04/24/17 04:59) MDM Medical Decision Making Medical Screen Exam Complete: Yes Emergency Medical Condition: Yes Medical Record Reviewed: Yes Differential Diagnosis Intoxication, polysubstance abuse, closed head injury, intracranial hemorrhage Narrative Course 20-year-old female presents under [place] act for evaluation of intoxication at a bar. She believes that she may have hit her head. Because she is on xarelto CT of the brain is been ordered. CT brain is negative. The patient will remain here until she is clinically sober or able to obtain a ride home. Diagnosis Primary Impression: Alcohol intoxication Med/Other Pt SpecificInfo: No Change to Meds Disposition: 01 DISCHARGE HOME Condition: Stable Baljit Wadsworth Apr 24, 2017 04:00
--- NOTE | 2017-04-24 05:33 | RADRPT ---
EXAM DATE/TIME: 04/24/2017 05:13 [facility] COMPARISON: CT BRAIN W/O CONTRAST, June 22, 2015, 22:20. INDICATIONS : Cephalgia. RADIATION DOSE: 32.08 CTDIvol (mGy) ; Patient motion MEDICAL HISTORY : None SURGICAL HISTORY : None. ENCOUNTER: Initial ACUITY: 1 day PAIN SCALE: Non-responsive LOCATION: cranial TECHNIQUE: Multiple contiguous axial images were obtained of the head. Using automated exposure control and adj ustment of the mA and/or kV according to patient size, radiation dose was kept as low as reasonably a chievable to obtain optimal diagnostic quality images. DICOM format image data is available electro nically for review and comparison. FINDINGS: CEREBRUM: The ventricles are normal for age. No evidence of midline shift, mass lesion, hemorrhage or acute in farction. No extra-axial fluid collections are seen. POSTERIOR FOSSA: The cerebellum and brainstem are intact. The 4th ventricle is midline. The cerebellopontine angle i s unremarkable. EXTRACRANIAL: The visualized portion of the orbits is intact. SKULL: The calvaria is intact. No evidence of skull fracture. CONCLUSION: No acute intracranial findings. Zi Berry MD on April 24, 2017 at 5:30 Board Certified Radiologist. This report was verified electronically.
[2017-04-24 08:00] VITALS: BP 95/60; PULSE 77; RESP 15; O2SAT 98
== END 2017-04-24 09:30 | disposition home or self-care (01) ==
LOC: NEPD 03:29
DX: F10.129 Alcohol abuse with intoxication, unspecified (principal); I26.99 Other pulmonary embolism without acute cor pulmonale; I82.402 Acute embolism and thrombosis of unspecified deep veins of left lower extremity; F17.200 Nicotine dependence, unspecified, uncomplicated; Z79.01 Long term (current) use of anticoagulants
CPT/HCPCS: 70450; 84703; 99284

== ENCOUNTER 2017-04-29 16:41 | Emergency (ER) | payer MEDICAID ==
[2017-04-29 16:42] VITALS: BP 108/64; PULSE 72; RESP 20; TEMP 98.7; O2SAT 95
--- NOTE | 2017-04-29 17:06 | PD ---
HPI Chief Complaint: Flank/Kidney Pain Time Seen by Provider: 16:55 Travel History International Travel<30 days: No Contact w/Intl Traveler<30days: No Traveled to known affect area: No History of Present Illness HPI The patient was seen and examined in the presence of the nurse. She complains of back pain. Duration 2 days. Severity is moderate. Worse with movement. No injury. It's bilateral low back and buttock pain. She currently takes blood thinner for PE. No bleeding complaints. PFSH Past Medical History Hx Anticoagulant Therapy: Yes (XERALTO) Asthma: Yes ( CHILD) Anxiety: Yes Depression: Yes Cardiovascular Problems: Yes (DVT) Diabetes: No Diminished Hearing: No Respiratory: Yes (PE) Immunizations Current: Yes Thyroid Disease: Yes (hx of hypo while ) Menopausal: No : 1 Para: 1 Past Surgical History Tonsillectomy: Yes Social History Alcohol Use: Yes (occas. beer) Tobacco Use: Yes (1 ppd) Substance Use: Yes (marijuana occasionally) Allergies-Medications (Allergen,Severity, Reaction): Coded Allergies: No Known Allergies (Verified Allergy, Unknown, 04/29/17) Reported Meds & Prescriptions Reported Meds & Active Scripts Active Percocet (Oxycodone-Acetaminophen) 5-325 mg Tab 1 Tab PO Q6H PRN Xarelto (Rivaroxaban) 20 Mg Tab 20 Mg PO DAILY start after 15 mg tab regimen is completed Xarelto (Rivaroxaban) 15 Mg Tab 15 Mg PO Q12HR Review of Systems General / Constitutional: No: Fever HENT: No: Headaches Cardiovascular: No: Chest Pain or Discomfort Physical Exam Narrative GENERAL: Well-nourished, well-developed patient in no apparent distress. SKIN: Focused skin assessment reveals no rash and nodules. Skin is Warm and dry. HEAD: Atraumatic. Normocephalic. EYES: Pupils equal and round. No scleral icterus. No injection or drainage. ENT: No nasal bleeding or discharge. Mucous membranes pink and moist. NECK: Trachea midline. No JVD. CARDIOVASCULAR: Regular rate and rhythm. No murmur appreciated. RESPIRATORY: No accessory muscle use. Clear to auscultation. Breath sounds equal bilaterally. GASTROINTESTINAL: Abdomen soft, non-tender, nondistended. Hepatic and splenic margins not palpable. MUSCULOSKELETAL: No obvious deformities. No clubbing. No cyanosis. No edema. Back exam shows no midline tenderness. No bruising or asymmetry NEUROLOGICAL: Awake and alert. No obvious cranial nerve deficits. Motor grossly within normal limits. Normal speech. PSYCHIATRIC: Appropriate mood and affect; insight and judgment normal. Data Data Last Documented VS Vital Signs Date Time Temp Pulse Resp B/P (MAP) Pulse Ox O2 Delivery O2 Flow Rate FiO2 04/29/17 16:42 98.7 72 20 108/64 (79) 95 MDM Medical Decision Making Medical Screen Exam Complete: Yes Emergency Medical Condition: Yes Medical Record Reviewed: Yes Differential Diagnosis Musculoskeletal back pain, sciatica, renal stone Narrative Course I have reviewed the patient's electronic medical record. Patient was here April 18, 2017 Patient's vital signs and exam are normal. No objective findings. No indication for emergent imaging. I don't think she has something disastrous like retroperitoneal hematoma. She looks comfortable She has Percocet at home to use if needed We will give her information on the outpatient clinic She needs medical follow-up She will return if she worsens Diagnosis Primary Impression: Back pain Qualified Codes: M54.5 - Low back pain Additional Instructions: The patient was advised to follow up with their physician and return if they worsen. Med/Other Pt SpecificInfo: Other Disposition: 01 DISCHARGE HOME Condition: Stable Sumit Dutat MD Apr 29, 2017 17:06
== END 2017-04-29 17:19 | disposition home or self-care (01) ==
LOC: PHED 16:41
DX: M54.5 Low back pain (principal); F17.210 Nicotine dependence, cigarettes, uncomplicated
CPT/HCPCS: 99282

== ENCOUNTER 2017-05-13 00:51 | Observation (INO) | payer OTHER ==
[~2017-05-13] VITALS: Ht 162.6 cm; Wt 58.6 kg
[2017-05-13] VITALS (15 sets, daily range): BP systolic 97–132; BP diastolic 50–89; PULSE 72–144; RESP 12–35; TEMP 98–99.1; O2SAT 92–100
--- NOTE | 2017-05-13 01:11 | PD ---
HPI Chief Complaint: chest pain Time Seen by Provider: 01:03 Travel History International Travel<30 days: No Contact w/Intl Traveler<30days: No Traveled to known affect area: No History of Present Illness HPI 21-year-old female here for evaluation of chest pain. She states that the symptoms started a few hours ago with a left-sided chest pain described as a "charley horse." Pain significantly increased about 20 minutes prior to arrival and has been constant, severe, nonradiating. Chart review shows that the patient was diagnosed with a DVT of her left lower extremity as well as PE last month and was started on Xarelto. She states she has not taken this medication for the last couple of days and has been using cocaine for the last couple of days. She denies any known history of cardiac disease. Denies IVDU and states that she has been in and supplied in the cocaine. No dyspnea. No fevers or chills. She is a smoker and has Implanon control which is believed culprit for her DVT and PE. PFSH Past Medical History Hx Anticoagulant Therapy: Yes (XERALTO) Asthma: Yes ( CHILD) Anxiety: Yes Depression: Yes Cardiovascular Problems: Yes (DVT) Diabetes: No Diminished Hearing: No Deep Vein Thrombosis: Yes Respiratory: Yes (PE) Immunizations Current: Yes Thyroid Disease: Yes (hx of hypo while ) Menopausal: No : 1 Para: 1 Past Surgical History Tonsillectomy: Yes Social History Alcohol Use: No (denies) Tobacco Use: No (quit last month) Substance Use: No (denies) Allergies-Medications (Allergen,Severity, Reaction): Coded Allergies: No Known Allergies (Verified Allergy, Unknown, 04/29/17) Reported Meds & Prescriptions Reported Meds & Active Scripts Active Percocet (Oxycodone-Acetaminophen) 5-325 mg Tab 1 Tab PO Q6H PRN Xarelto (Rivaroxaban) 20 Mg Tab 20 Mg PO DAILY start after 15 mg tab regimen is completed Xarelto (Rivaroxaban) 15 Mg Tab 15 Mg PO Q12HR Review of Systems Except as stated in HPI: all other systems reviewed are Neg Physical Exam Narrative GENERAL: Well-developed, well-nourished, awake, alert, moderate distress secondary to pain. SKIN: Focused skin assessment warm/dry. No rash. HEAD: Atraumatic. Normocephalic. EYES: Pupils equal and round. No scleral icterus. No injection or drainage. ENT: No nasal bleeding or discharge. Mucous membranes pink and moist. NECK: Trachea midline. No JVD. CARDIOVASCULAR: Tachycardic, regular, rate 130s. Distal pulses brisk and equal bilaterally. RESPIRATORY: No accessory muscle use. Clear to auscultation. Breath sounds equal bilaterally. GASTROINTESTINAL: Abdomen soft, non-tender, nondistended. MUSCULOSKELETAL: No obvious deformities. No clubbing. No cyanosis. Moderate edema to the entire left lower extremity with moderate diffuse tenderness. All compartments in the left lower extremity are supple. No signs of phlegmasia cerulea dolens. NEUROLOGICAL: Awake and alert. No obvious cranial nerve deficits. Motor grossly within normal limits. Normal speech. PSYCHIATRIC: Appears anxious.; insight and judgment normal. Data Data Last Documented VS Vital Signs Date Time Temp Pulse Resp B/P (MAP) Pulse Ox O2 Delivery O2 Flow Rate FiO2 05/13/17 01:57 98.0 90 18 132/84 (100) 97 Room Air Orders Orders Electrocardiogram (05/13/17 01:04) Basic Metabolic Panel (Bmp) (05/13/17 01:04) Ckmb (Isoenzyme) Profile (05/13/17 01:04) Complete Blood Count With Diff (05/13/17 01:04) Comprehensive Metabolic Panel (05/13/17 01:04) Prothrombin Time / Inr (Pt) (05/13/17 01:04) Act Partial Throm Time (Ptt) (05/13/17 01:04) Troponin I (05/13/17 01:04) Chest, Single Ap (05/13/17 01:04) Ecg Monitoring (05/13/17 01:04) Iv Access Insert/Monitor (05/13/17 01:04) Oximetry (05/13/17 01:04) Aspirin Chew (Aspirin Chew) (05/13/17 01:15) Sodium Chloride 0.9% Flush (Ns Flush) (05/13/17 01:15) Beta Hcg (Quant/Titer) (05/13/17 01:04) Drug Screen, Random Urine (05/13/17 01:04) Ct Pulmonary Angiogram (05/13/17 ) Morphine Inj (Morphine Inj) (05/13/17 01:15) Alcohol (Ethanol) (05/13/17 01:11) Sodium Chlor 0.9% 1000 Ml Inj (Ns 1000 M (05/13/17 01:30) Lorazepam Inj (Ativan Inj) (05/13/17 01:30) CKMB (05/13/17 01:11) CKMB% (05/13/17 01:11) Iohexol 350 Inj (Omnipaque 350 Inj) (05/13/17 02:05) Rivaroxaban (Xarelto) (05/13/17 03:15) Labs Laboratory Tests Test 05/13/17 01:11 05/13/17 01:48 White Blood Count 12.1 TH/MM3 Red Blood Count 5.64 MIL/MM3 Hemoglobin 15.6 GM/DL Hematocrit 46.7 % Mean Corpuscular Volume 82.7 FL Mean Corpuscular Hemoglobin 27.6 PG Mean Corpuscular Hemoglobin Concent 33.4 % Red Cell Distribution Width 15.6 % Platelet Count 305 TH/MM3 Mean Platelet Volume 7.3 FL Neutrophils (%) (Auto) 74.3 % Lymphocytes (%) (Auto) 18.7 % Monocytes (%) (Auto) 5.1 % Eosinophils (%) (Auto) 1.4 % Basophils (%) (Auto) 0.5 % Neutrophils # (Auto) 8.9 TH/MM3 Lymphocytes # (Auto) 2.3 TH/MM3 Monocytes # (Auto) 0.6 TH/MM3 Eosinophils # (Auto) 0.2 TH/MM3 Basophils # (Auto) 0.1 TH/MM3 CBC Comment DIFF FINAL Differential Comment Prothrombin Time 10.8 SEC Prothromb Time International Ratio 1.1 RATIO Activated Partial Thromboplast Time 26.2 SEC Blood Urea Nitrogen 6 MG/DL Creatinine 0.68 MG/DL Random Glucose 86 MG/DL Total Protein 9.4 GM/DL Albumin 4.7 GM/DL Calcium Level 9.4 MG/DL Alkaline Phosphatase 157 U/L Aspartate Amino Transf (AST/SGOT) 20 U/L Alanine Aminotransferase (ALT/SGPT) 22 U/L Total Bilirubin 1.0 MG/DL Sodium Level 137 MEQ/L Potassium Level 3.2 MEQ/L Chloride Level 103 MEQ/L Carbon Dioxide Level 20.6 MEQ/L Anion Gap 13 MEQ/L Estimat Glomerular Filtration Rate 107 ML/MIN Total Creatine Kinase 102 U/L Creatine Kinase MB 1.6 NG/ML Troponin I LESS THAN 0.02 NG/ML Human Chorionic Gonadotropin, Quant LESS THAN 1 MIU/ML Ethyl Alcohol Level 74 MG/DL Urine Opiates Screen POS Urine Barbiturates Screen NEG Urine Amphetamines Screen POS Urine Benzodiazepines Screen NEG Urine Cocaine Screen POS Urine Cannabinoids Screen NEG MDM Medical Decision Making Medical Screen Exam Complete: Yes Emergency Medical Condition: Yes Medical Record Reviewed: Yes Interpretation(s) EKG: Ectopic atrial tachycardia, rate 136, indeterminate axis, normal intervals , subtle Q waves in inferior and lateral leads, ST depression and T-wave inversions in V1 through V4 Differential Diagnosis ACS, pneumothorax, PE, pneumonia, pericarditis, cocaine chest pain Narrative Course Initial vital signs show heart rate 144, blood pressure 120/89, pulse ox 99% on room air, oral temp of 98F. CBC: WBC 12.1, hemoglobin 15.6, hematocrit 46.7, platelets 305, neutrophils 74%. BMP is remarkable for potassium 3.2, bicarbonate 20.6, otherwise unremarkable. Beta hCG is negative Cardiac enzymes are negative. Urine drug screen is positive for opiates, amphetamines, and cocaine. Alcohol level is 74. Chest x-ray: No acute disease. CT pulmonary angiogram: Small volume residual thrombus involving the interlobar pulmonary artery on the right. The remaining thrombus has resolved. The patient was given a full dose of aspirin, IV morphine, IV Ativan, liter normal saline IV, and on reassessment her heart rate has improved from 144-96. Repeat EKG was performed and ST depressions have resolved as the rate has improved, however the patient has persistent T-wave inversions in V1 through V4 which are new. There are no ST segment elevations. Patient still complains of chest pain, however states it is now worse with movement and is left sided. She has not taken her Xarelto in 2 days and will be given 20 mg of oral Xarelto now. Patient could have coronary vasospasm from cocaine/amphetamines causing her chest pain/EKG abnormality. She will be admitted for overnight observation for serial cardiac enzymes. Case discussed with hospitalist nurse practitioner Ivana working with Dr. Tirado. They will admit the patient to the hospitalist service for further work-up and eval. Diagnosis Primary Impression: Chest pain Qualified Codes: R07.9 - Chest pain, unspecified Additional Impressions: Pulmonary embolism Qualified Codes: I27.82 - Chronic pulmonary embolism Polysubstance abuse Alcohol intoxication Qualified Codes: F10.920 - Alcohol use, unspecified with intoxication, uncomplicated Admitting Information Admitting Physician Requests: Aguila Hein MD May 13, 2017 01:11
[2017-05-13] MEDS ORDERED: ASPIRIN 81 MG CHEW TAB PO ONE (01:15)
[2017-05-13] MEDS ORDERED: MORPHINE SULFATE 2 MG/ML INJ IV PUSH ONE (01:15)
[2017-05-13] MEDS ORDERED: SODIUM CHLORIDE 0.9% FLUSH 10 ML FLUSH IVF PRN (01:15)
[2017-05-13 01:21] LABS: AUTOMATED NEUTROPHIL # 8.9 TH/MM3 (1.8-7.7); BASOPHIL # 0.1 TH/MM3 (0-0.2); BASOPHIL % 0.5 % (0.0-2.0); EOSINOPHIL # 0.2 TH/MM3 (0-0.4); EOSINOPHIL % 1.4 % (0.0-4.0); HEMATOCRIT 46.7 % (35.0-46.0); HEMOGLOBIN 15.6 GM/DL (11.6-15.3); LYMPH % 18.7 % (9.0-44.0); LYMPHOCYTE # 2.3 TH/MM3 (1.0-4.8); MEAN CELL VOLUME 82.7 FL (80.0-100.0); MEAN CORPUSCULAR HEMOGLOBIN 27.6 PG (27.0-34.0); MEAN CORPUSCULAR HGB CONC 33.4 % (32.0-36.0); MEAN PLATELET VOLUME 7.3 FL (7.0-11.0); MONO % 5.1 % (0.0-8.0); MONOCYTE # 0.6 TH/MM3 (0-0.9); NEUT % 74.3 % (16.0-70.0); PLATELET COUNT 305 TH/MM3 (150-450); RED BLOOD COUNT 5.64 MIL/MM3 (4.00-5.30); RED CELL DISTRIBUTION WIDTH 15.6 % (11.6-17.2); WHITE BLOOD COUNT 12.1 TH/MM3 (4.0-11.0)
[2017-05-13 01:28] LABS: CHLORIDE 103 MEQ/L (98-107); SODIUM (NA) 137 MEQ/L (136-145)
[2017-05-13] MEDS ORDERED: SODIUM CHLOR 0.9% 1000 ML INJ 1,000 ML IV ONE (01:30)
[2017-05-13] MEDS ORDERED: LORazepam 2 MG/ML VIAL IV PUSH ONE (01:30)
[2017-05-13 01:31] LABS: CALCIUM 9.4 MG/DL (8.5-10.1)
[2017-05-13 01:32] LABS: ALBUMIN 4.7 GM/DL (3.4-5.0); BICARBONATE 20.6 MEQ/L (21.0-32.0); BLOOD UREA NITROGEN 6 MG/DL (7-18); GLUCOSE,RANDOM 86 MG/DL (74-106); INTERNATIONAL NORMALIZED RATIO 1.1 RATIO; PROTHROMBIN TIME - PATIENT 10.8 SEC (9.8-11.6)
--- NOTE | 2017-05-13 01:33 | RADRPT ---
EXAM DATE/TIME: 05/13/2017 01:16 [facility] COMPARISON: No previous studies available for comparison. INDICATIONS : Chest pain. MEDICAL HISTORY : None. SURGICAL HISTORY : None. ENCOUNTER: Initial ACUITY: 1 day PAIN SCORE: 10/10 LOCATION: Bilateral chest FINDINGS: A single view of the chest demonstrates the lungs to be symmetrically aerated without evidence of mas s, infiltrate or effusion. The cardiomediastinal contours are unremarkable. Osseous structures are intact. CONCLUSION: No acute disease. Mars Jade Jr., MD on May 13, 2017 at 1:31 Board Certified Radiologist. This report was verified electronically.
[2017-05-13 01:35] LABS: ALT (GPT) 22 U/L (10-53); AST (GOT) 20 U/L (15-37); CREATININE 0.68 MG/DL (0.50-1.00); GLOMERULAR FILTRATION RATE 107 ML/MIN (>89)
[2017-05-13 01:36] LABS: TOTAL PROTEIN 9.4 GM/DL (6.4-8.2)
[2017-05-13 01:38] LABS: ALKALINE PHOSPHATASE 157 U/L (45-117)
[2017-05-13 01:40] LABS: TROPONIN I LESS THAN 0.02 NG/ML (0.02-0.05)
[2017-05-13] MEDS ORDERED: IOHEXOL 350 MG/ML 10 ML VIAL (for RAD DIAG) IVCONTRAST ONE (02:05)
--- NOTE | 2017-05-13 02:52 | RADRPT ---
EXAM DATE/TIME: 05/13/2017 01:52 [facility] COMPARISON: CT PULMONARY ANGIOGRAM, April 18, 2017, 14:08. INDICATIONS : Chest pain. IV CONTRAST: 65 cc Omnipaque 350 (iohexol) IV RADIATION DOSE: 6.06 CTDIvol (mGy) MEDICAL HISTORY : Deep venous thrombosis. Pulmonary embolism. SURGICAL HISTORY : None. ENCOUNTER: Initial ACUITY: 1 day PAIN SCALE: 10/10 LOCATION: Left chest TECHNIQUE: Volumetric scanning of the chest was performed using a pulmonary embolism protocol MIP images were re constructed. Using automated exposure control and adjustment of the mA and/or kV according to patien t size, radiation dose was kept as low as reasonably achievable to obtain optimal diagnostic quality images. DICOM format image data is available electronically for review and comparison. Follow-up recommendations for detected pulmonary nodules are based at a minimum on nodule size and pa tient risk factors according to Fleischner Society Guidelines. FINDINGS: PULMONARY ARTERIES: Residual small volume thrombus involving the interlobar pulmonary artery on the right. The remaining thrombus has resolved. LUNGS: There is no consolidation or pneumothorax . No concerning pulmonary nodule is visualized. PLEURAE: There is no pleural thickening or pleural effusion. MEDIASTINUM: There is good visualization of the great vessels of the middle mediastinum. No evidence of mediastin al or hilar adenopathy/mass. MUSCULOSKELETAL: Within normal limits for patient age. MISCELLANEOUS: The visualized upper abdominal organs demonstrate no acute abnormality. CONCLUSION: 1. Small volume residual thrombus involving the interlobar pulmonary artery on the right. The remaini ng thrombus has resolved. Mars Jade Jr., MD on May 13, 2017 at 2:48 Board Certified Radiologist. This report was verified electronically.
[2017-05-13] MEDS ORDERED: MORPHINE SULFATE 2 MG/ML INJ IV PUSH PRN (03:15)
[2017-05-13] MEDS ORDERED: RIVAROXABAN 20 MG TAB PO ONE (03:15)
[2017-05-13] MEDS ORDERED: BISACODYL 10 MG SUPP RECTAL PRN (03:15)
[2017-05-13] MEDS ORDERED: ONDANSETRON HCL 4 MG/2 ML VIAL IVP PRN (03:15)
[2017-05-13] MEDS ORDERED: MAGNESIUM HYDROXIDE SUSP 30 ML CUP PO PRN (03:15)
[2017-05-13] MEDS ORDERED: SENNOSIDES 8.6 MG TAB PO PRN (03:15)
[2017-05-13] MEDS ORDERED: ACETAMINOPHEN 325 MG TAB PO PRN (03:15)
[2017-05-13] MEDS ORDERED: POTASSIUM CHLORIDE 20 MEQ CONTROLLED RELEASE TAB PO ONE (03:30)
[2017-05-13] MEDS: SODIUM CHLOR 0.9% 1000 ML INJ 1,000 ML IV SCH ×3 (03:45→21:30)
[2017-05-13] MEDS: oxyCODONE/ACETAMINOPHEN 5 MG/325 MG TAB PO PRN ×2 (04:49→21:30)
[2017-05-13 08:41] LABS: TROPONIN I LESS THAN 0.02 NG/ML (0.02-0.05)
[2017-05-13] MEDS: SODIUM CHLORIDE 0.9% FLUSH 10 ML FLUSH IV FLUSH SCH ×2 (09:00→21:00)
[2017-05-13] MEDS: DOCUSATE SODIUM 50 MG/SENNA 8.6 MG TAB PO SCH ×2 (09:00→21:29)
[2017-05-13 12:41] LABS: MAGNESIUM 1.9 MG/DL (1.5-2.5)
[2017-05-13 13:10] LABS: TROPONIN I LESS THAN 0.02 NG/ML (0.02-0.05)
--- NOTE | 2017-05-13 14:21 | HHI.HP ---
[facility] Primary Care Physician No Primary Care Physician Admission Diagnosis Chest pain, PE, Polysubstance abuse Diagnoses: (1) Systemic inflammatory response syndrome Diagnosis: Principal (2) Chest pain Diagnosis: Principal (3) Acute electrocardiogram changes Diagnosis: Principal (4) Polysubstance abuse Diagnosis: Principal Chief Complaint: Chest pain Travel History International Travel<30 Days: No Contact w/Intl Traveler <30 Da: No Traveled to Known Affected Are: No History of Present Illness 21-year-old female with known history of recent pulmonary emboli, DVT who presented to hospital because of chest discomfort. Patient indicates that she is in normal state of health until approximately 9 PM last night she started developing a pain in her left anterior chest radiating into her neck which she stated was a 10/10 on a pain scale. Patient then participated in illicit drug activity with snorting cocaine. The pain did not improve and actually worsened so she came to emergency department approximately 1 AM last night. Patient had workup performed which did show acute EKG changes with T- wave abnormalities in leads V1 through V4 which were documented to be new changes. Upon review of the EKG also indicates that there is findings consistent with anterior and inferior ischemia. Is recommended by the ER physician the patient be observed in the hospital for further recommendations. Patient does have a history of recent PE/DVT and has been on Xarelto. She indicates that she has not taken over the last few days because she was frustrated at the health care system. She does not have the money to pay for further prescriptions. CT angiography was performed which did show a small by residual thrombus involving the interlobar pulmonary artery on the right and the remaining thrombus had resolved. At the time evaluating the patient she is still experiencing constant left anterior chest pain with radiation to her neck. There is no indication of any nausea, vomiting, diaphoresis, shortness of breath, dyspnea. Review of Systems Cardiovascular: COMPLAINS OF: Chest pain Musculoskeletal: COMPLAINS OF: Back pain Except as stated in HPI: all other systems reviewed are Neg Past Family Social History Past Medical History Pulmonary emboli DVT Past Surgical History History of hypothyroidism when she was Reported Medications Reported Meds & Active Scripts Active Percocet (Oxycodone-Acetaminophen) 5-325 mg Tab 1 Tab PO Q6H PRN Xarelto (Rivaroxaban) 20 Mg Tab 20 Mg PO DAILY start after 15 mg tab regimen is completed Xarelto (Rivaroxaban) 15 Mg Tab 15 Mg PO Q12HR Allergies: Coded Allergies: No Known Allergies (Verified Allergy, Unknown, 04/29/17) Family History Reviewed and significant for father from cancer of the lymph nodes Social History Patient does smoke a pack a cigarettes a day since she was 11 years old. Patient does drink alcohol, does not embellish upon the amount or extent. She does participate in illicit drug activity with snorting cocaine and smoking marijuana. Physical Exam Vital Signs Vital Signs Date Time Temp Pulse Resp B/P (MAP) Pulse Ox O2 Delivery O2 Flow Rate FiO2 05/13/17 12:14 98.8 74 12 100/59 (73) 05/13/17 07:19 98.9 84 24 119/70 (86) 05/13/17 05:49 14 05/13/17 04:16 98.7 108 16 126/68 (87) 94 05/13/17 04:13 05/13/17 02:49 104 16 121/60 (80) 99 Room Air 05/13/17 02:30 102 16 114/55 (74) 99 Room Air 05/13/17 01:57 98.0 90 18 132/84 (100) 97 Room Air 05/13/17 01:54 18 05/13/17 01:25 20 100 Room Air 05/13/17 01:15 98.0 144 22 120/89 (99) 99 121/85 (97) 05/13/17 01:15 144 22 99 Room Air Physical Exam GENERAL: Well-developed, well-nourished, in no acute distress. alert and orientated HEENT: Head is normocephalic without any lesions or masses noted. Facial features are symmetric. Eyes: Pupils equal round reactive to light. Extraocular muscles are intact. Conjunctivae were clear. Oropharyngeal: Pharynx without any erythema edema. Tongue is midline without deviation. Buccal mucosa is moist without any masses or lesions NECK: Supple without any masses. Trachea midline no deviation. No JVD, no bruits are appreciated CARDIAC: Regular rhythm, regular rate. S1/S2 are heard. No murmurs gallops or rubs. LUNGS: Clear to auscultation bilaterally. No wheeze, rhonchi or rales. No use of accessory muscles on inspiration or expiration. ABDOMEN: Soft, nontender. Nondistended. Bowel sounds heard in all 4 quadrants. No organomegaly or masses. Negative rebound, negative guarding EXTREMITIES: No edema, pulses are equal bilaterally. No cyanosis or clubbing NEUROLOGY: Mood and affect appear appropriate. Cranial nerves II through XII grossly intact. Muscle strength 5/5 in upper and lower extremities bilaterally. Deep tendon reflexes are 2+ in upper and lower extremities bilaterally. Laboratory Laboratory Tests Test 05/13/17 01:11 05/13/17 01:48 05/13/17 07:35 05/13/17 12:05 White Blood Count 12.1 Red Blood Count 5.64 Hemoglobin 15.6 Hematocrit 46.7 Mean Corpuscular Volume 82.7 Mean Corpuscular Hemoglobin 27.6 Mean Corpuscular Hemoglobin Concent 33.4 Red Cell Distribution Width 15.6 Platelet Count 305 Mean Platelet Volume 7.3 Neutrophils (%) (Auto) 74.3 Lymphocytes (%) (Auto) 18.7 Monocytes (%) (Auto) 5.1 Eosinophils (%) (Auto) 1.4 Basophils (%) (Auto) 0.5 Neutrophils # (Auto) 8.9 Lymphocytes # (Auto) 2.3 Monocytes # (Auto) 0.6 Eosinophils # (Auto) 0.2 Basophils # (Auto) 0.1 CBC Comment DIFF FINAL Differential Comment Prothrombin Time 10.8 Prothromb Time International Ratio 1.1 Activated Partial Thromboplast Time 26.2 Blood Urea Nitrogen 6 Creatinine 0.68 Random Glucose 86 Total Protein 9.4 Albumin 4.7 Calcium Level 9.4 Alkaline Phosphatase 157 Aspartate Amino Transf (AST/SGOT) 20 Alanine Aminotransferase (ALT/SGPT) 22 Total Bilirubin 1.0 Sodium Level 137 Potassium Level 3.2 Chloride Level 103 Carbon Dioxide Level 20.6 Anion Gap 13 Estimat Glomerular Filtration Rate 107 Total Creatine Kinase 102 73 63 Creatine Kinase MB 1.6 Troponin I LESS THAN 0.02 LESS THAN 0.02 LESS THAN 0.02 Human Chorionic Gonadotropin, Quant LESS THAN 1 Ethyl Alcohol Level 74 Urine Opiates Screen POS Urine Barbiturates Screen NEG Urine Amphetamines Screen POS Urine Benzodiazepines Screen NEG Urine Cocaine Screen POS Urine Cannabinoids Screen NEG Magnesium Level 1.9 Result Diagram: 05/13/17 0111 05/13/17 0111 Imaging Last Impressions Chest X-Ray 05/13/17 0104 Signed Impressions: Service Date/Time: May 01:16 - CONCLUSION: No acute disease. Mars Jade Jr., MD CT Angiography 05/13/17 0000 Signed Impressions: Service Date/Time: May 01:52 - CONCLUSION: 1. Small volume residual thrombus involving the interlobar pulmonary artery on the right. The remaining thrombus has resolved. Mars Jade Jr., MD Caprinmisty VTE Risk Assessment Caprini VTE Risk Assessment: Mod/High Risk (score >= 2) Caprini Risk Assessment Model Point Value = 1 Point Value = 2 Point Value = 3 Point Value = 5 Age 41-60 Minor surgery BMI > 25 kg/m2 Swollen legs Varicose veins or History of unexplained or recurrent spontaneous Oral contraceptives or hormone replacement Sepsis (< 1 month) Serious lung disease, including pneumonia (< 1 month) Abnormal pulmonary function Acute myocardial infarction Congestive heart failure (< 1 month) History of inflammatory bowel disease Medical patient at bed rest Age 61-74 Arthroscopic surgery Major open surgery (> 45 min) Laparoscopic surgery (> 45 min) Malignancy Confined to bed (> 72 hours) Immobilizing plaster cast Central venous access Age >= 75 History of VTE Family history of VTE Factor V Leiden Prothrombin [id number] Lupus anticoagulant Anticardiolipin antibodies Elevated serum homocysteine Heparin-induced thrombocytopenia Other congenital or acquired thrombophilia Stroke (< 1 month) Elective arthroplasty Hip, pelvis, or leg fracture Acute spinal cord injury (< 1 month) Prophylaxis Regimen Total Risk Factor Score Risk Level Prophylaxis Regimen 0-1 Low Early ambulation 2 Moderate Order ONE of the following: *Sequential Compression Device (SCD) *Heparin 5000 units SQ BID 3-4 Higher Order ONE of the following medications: *Heparin 5000 units SQ TID *Enoxaparin/Lovenox 40 mg SQ daily (WT < 150 kg, CrCl > 30 mL/min) *Enoxaparin/Lovenox 30 mg SQ daily (WT < 150 kg, CrCl > 10-29 mL/min) *Enoxaparin/Lovenox 30 mg SQ BID (WT < 150 kg, CrCl > 30 mL/min) AND/OR *Sequential Compression Device (SCD) 5 or more Highest Order ONE of the following medications: *Heparin 5000 units SQ TID (Preferred with Epidurals) *Enoxaparin/Lovenox 40 mg SQ daily (WT < 150 kg, CrCl > 30 mL/min) *Enoxaparin/Lovenox 30 mg SQ daily (WT < 150 kg, CrCl > 10-29 mL/min) *Enoxaparin/Lovenox 30 mg SQ BID (WT < 150 kg, CrCl > 30 mL/min) AND *Sequential Compression Device (SCD) Assessment and Plan Assessment and Plan Systemic inflammatory response syndrome Patient is criteria with leukocytosis, tachycardia, no signs of infection could be secondary to illicit drug use, cardiac ischemia Continue monitor for infection, monitor CBC Chest pain with acute EKG changes Unlikely due to atherosclerotic heart disease, likely secondary to amphetamine/cocaine induced vasospasm, ischemia Patient still with persistent chest discomfort, pain is relieved with Percocet Patient was given aspirin Serial cardiac enzymes do not indicate any acute coronary event Serial EKGs do indicate T-wave inversions noted in V2, V3 which appear to be a new finding from previously reviewed EKGs EKGs are initially done in emergency department prior to treatment also indicated cardiac ischemia noted in anterior/inferior leads We'll start Nitropaste to see if any improvement Continue aspirin, start Norvasc 2.5 mg daily for vasospasm Consulted cardiology for recommendations Further recommendations depends on response to treatment, possible need for stress test for complete evaluation Obtain echocardiogram Pulmonary emboli, DVT Xarelto continued DVT prevention Patient is on Xarelto Problem Qualifiers (1) Chest pain: Qualified Codes: R07.9 - Chest pain, unspecified Sumit Colvin May 13, 2017 14:21
[2017-05-13] MEDS: NITROGLYCERIN 2% OINT 1 GM PACKET TOPICAL SCH ×2 (14:30→17:24)
[2017-05-13] MEDS: amLODIPine BESYLATE 5 MG TAB PO SCH (17:24)
[2017-05-13 18:18] LABS: BILIRUBIN, URINE NEG (NEG); BLOOD, URINE NEG (NEG); GLUCOSE,URINE NEG (NEG); KETONE, URINE NEG (NEG); NITRITE,URINE NEG (NEG); PH, URINE 6.5 (5.0-8.5); URINE LEUKOCYTE ESTERASE NEG (NEG)
[2017-05-13 18:23] LABS: URINE COLOR YELLOW (YELLW/STRAW)
[2017-05-13 18:25] LABS: SQUAMOUS EPITHELIAL CELL URINE 0-5 /hpf (0-5); WBC, URINE 0-2 /hpf (0-5)
[2017-05-13] MEDS ORDERED: RIVAROXABAN 20 MG TAB PO SCH (21:00)
[2017-05-14 00:45] VITALS: BP 97/55; PULSE 74; RESP 17
[2017-05-14 02:27] VITALS: BP 112/64; PULSE 70; RESP 20; TEMP 97.7; O2SAT 98
[2017-05-14] MEDS: NITROGLYCERIN 2% OINT 1 GM PACKET TOPICAL SCH ×2 (05:53)
[2017-05-14 06:04] LABS: AUTOMATED NEUTROPHIL # 2.7 TH/MM3 (1.8-7.7); BASOPHIL % 0.7 % (0.0-2.0); EOSINOPHIL # 0.5 TH/MM3 (0-0.4); EOSINOPHIL % 9.6 % (0.0-4.0); HEMATOCRIT 39.7 % (35.0-46.0); HEMOGLOBIN 13.1 GM/DL (11.6-15.3); LYMPH % 34.8 % (9.0-44.0); LYMPHOCYTE # 1.9 TH/MM3 (1.0-4.8); MEAN CELL VOLUME 83.9 FL (80.0-100.0); MEAN CORPUSCULAR HEMOGLOBIN 27.6 PG (27.0-34.0); MEAN CORPUSCULAR HGB CONC 32.9 % (32.0-36.0); MEAN PLATELET VOLUME 7.6 FL (7.0-11.0); MONO % 9.8 % (0.0-8.0); MONOCYTE # 0.5 TH/MM3 (0-0.9); NEUT % 45.1 % (16.0-70.0); PLATELET COUNT 205 TH/MM3 (150-450); RED BLOOD COUNT 4.73 MIL/MM3 (4.00-5.30); RED CELL DISTRIBUTION WIDTH 15.1 % (11.6-17.2); WHITE BLOOD COUNT 5.6 TH/MM3 (4.0-11.0)
[2017-05-14 06:19] LABS: BICARBONATE 23.3 MEQ/L (21.0-32.0); CALCIUM 8.1 MG/DL (8.5-10.1); MAGNESIUM 1.9 MG/DL (1.5-2.5)
[2017-05-14 06:25] LABS: CREATININE 0.48 MG/DL (0.50-1.00)
[2017-05-14 08:00] VITALS: BP 100/66; PULSE 55; RESP 16; TEMP 98.1; O2SAT 97
--- NOTE | 2017-05-14 08:54 | HHI.PR ---
Subjective Remarks Patient seen and examined today for follow-up on chest pain. Patient states that she is tired and difficult to wake up this morning. Patient states that the pain has improved. Pain is not reproducible on palpation in the left anterior chest just inferior to the clavicle. Patient denies any other complaints. Objective Vital Signs Date Time Temp Pulse Resp B/P (MAP) Pulse Ox O2 Delivery O2 Flow Rate FiO2 05/14/17 08:00 98.1 55 16 100/66 (77) 97 05/14/17 02:27 97.7 70 20 112/64 (80) 98 05/14/17 00:45 74 17 97/55 (69) 05/13/17 23:00 99.1 74 17 97/66 (76) 96 05/13/17 23:00 86 05/13/17 22:30 16 05/13/17 19:19 98.6 78 20 106/50 (68) 92 05/13/17 18:27 96 35 111/62 (78) 05/13/17 16:46 74 19 116/56 (76) 05/13/17 15:19 99.1 74 19 116/56 (76) 96 05/13/17 15:00 72 05/13/17 12:14 98.8 74 12 100/59 (73) I/O 05/13/17 05/13/17 05/13/17 05/14/17 05/14/17 05/14/17 07:00 15:00 23:00 07:00 15:00 23:00 Intake Total 1200 ml 830 ml 432 ml 363 ml Balance 1200 ml 830 ml 432 ml 363 ml Intake Oral 30 ml IV Total 1170 ml 830 ml 432 ml 363 ml # Voids 0 4 0 # Bowel Movements 0 0 Result Diagram: 05/14/17 0440 05/14/17 0440 Objective Remarks GENERAL: Well-developed, well-nourished, in no acute distress. alert and orientated HEENT: Head is normocephalic without any lesions or masses noted. Facial features are symmetric. Eyes: Extraocular muscles are intact. Conjunctivae were clear. NECK: Supple without any masses. Trachea midline no deviation. No JVD, CARDIAC: Regular rhythm, regular rate. S1/S2 are heard. No murmurs gallops or rubs. LUNGS: Clear to auscultation bilaterally. No wheeze, rhonchi or rales. No use of accessory muscles on inspiration or expiration. ABDOMEN: Soft, nontender. Nondistended. Bowel sounds heard in all 4 quadrants. No organomegaly or masses. Negative rebound, negative guarding EXTREMITIES: No edema, pulses are equal bilaterally. No cyanosis or clubbing NEUROLOGY: Mood and affect appear appropriate. Cranial nerves II through XII grossly intact. Moving all extremities, speech is clear MUSCULOSKELETAL: Patient has reproducible palpable pain noted just inferior to the left mid clavicle area A/P Assessment and Plan Systemic inflammatory response syndrome, resolved Patient is criteria with leukocytosis, tachycardia, no signs of infection could be secondary to illicit drug use, cardiac ischemia Continue monitor for infection, monitor CBC Chest pain with acute EKG changes Unlikely due to atherosclerotic heart disease, likely secondary to amphetamine/cocaine induced vasospasm, ischemia Patient still with persistent chest discomfort,which is now reproducible with palpation, pain is relieved with Percocet Patient was given aspirin Serial cardiac enzymes do not indicate any acute coronary event Serial EKGs do indicate T-wave inversions noted in V2, V3 which appear to be a new finding from previously reviewed EKGs EKGs are initially done in emergency department prior to treatment also indicated cardiac ischemia noted in anterior/inferior leads Discontinue Nitropaste, no significant improvement with nitropaste Continue aspirin, Continue Norvasc 2.5 mg daily for vasospasm Consulted cardiology for recommendations, Cardiology discussed with Dr Epps , they indicated that unlikely from CAD, likely secondary to Cocaine/ Amphetamine use Further recommendations depends on response to treatment, possible need for stress test for complete evaluation Echocardiogram indicated normal systolic function, normal left ventricle, trace of mitral valve regurg Pulmonary emboli, DVT Xarelto continued DVT prevention Patient is on Xarelto Discharge Planning Discharge home in stable condition Activity: Ad hannah. Diet: Regular diet Medications per medication reconciliation Follow-up with primary medical doctor in one week Sumit Colvin May 14, 2017 08:54
[2017-05-14] MEDS: SODIUM CHLORIDE 0.9% FLUSH 10 ML FLUSH IV FLUSH SCH (08:55)
[2017-05-14] MEDS: amLODIPine BESYLATE 5 MG TAB PO SCH (09:00)
[2017-05-14] MEDS ORDERED: INFLUENZA VIRUS VACCINE (QUADRIVALENT) 0.5 ML SYR IM ONE (09:00)
[2017-05-14] MEDS ORDERED: PNEUMOCOCCAL POLYVALENT INJ 25 MCG/0.5 ML SYR IM ONE (09:00)
[2017-05-14] MEDS: DOCUSATE SODIUM 50 MG/SENNA 8.6 MG TAB PO SCH (09:00)
[2017-05-14] MEDS: SODIUM CHLOR 0.9% 1000 ML INJ 1,000 ML IV SCH (09:14)
[2017-05-14 09:30] LABS: CHOLESTEROL/ HDL RATIO 2.27 RATIO; HDL CHOLESTEROL 41.4 MG/DL (40.0-60.0)
[2017-05-14 12:00] VITALS: BP 109/70; PULSE 70; RESP 14; TEMP 97.4; O2SAT 94
--- NOTE | 2017-05-14 14:41 | ECHRPT ---
Indication: CHEST PAIN, PULMONARY EMBOLI, DVT CONCLUSIONS Normal left ventricular size. Wall thickness is normal. The left ventricular systolic function is grossly normal on limited imaging. Trace mitral valve regurgitation. There is trace tricuspid valve regurgitation. The estimated pulmonary arterial pressure is 25.2 mmHg. BP: 112 / 64 HR: 70 Rhythm: Sinus MEASUREMENTS (Male / Female) Normal Values Technical Quality:Fair 2D ECHO LV Diastolic Diameter PLAX 4.8 cm 4.2 - 5.9 / 3.9 - 5.3 cm LV Systolic Diameter PLAX 3.0 cm IVS Diastolic Thickness 0.7 cm 0.6 - 1.0 / 0.6 - 0.9 cm LVPW Diastolic Thickness 0.7 cm 0.6 - 1.0 / 0.6 - 0.9 cm LV Relative Wall Thickness 0.3 RV Internal Dim ED PLAX 2.1 cm LVOT Diameter 1.8 cm Aortic Root Diameter 2.5 cm LA Systolic Diameter LX 2.7 cm 3.0 - 4.0 / 2.7 - 3.8 cm M-MODE AV Cusp Separation MM 1.7 cm DOPPLER AV Peak Velocity 143.0 cm/s AV Peak Gradient 8.2 mmHg AV Mean Gradient 4.0 mmHg AV Velocity Time Integral 27.3 cm LVOT Peak Velocity 123.0 cm/s LVOT Peak Gradient 6.1 mmHg LVOT Velocity Time Integral 23.0 cm LVOT Cardiac Index 2515.4 cm/minm AV Area Cont Eq vti 2.1 cm AV Area Cont Eq pk 2.2 cm Mitral E Point Velocity 101.0 cm/s Mitral A Point Velocity 43.9 cm/s Mitral E to A Ratio 2.3 LV E' Lateral Velocity 13.9 cm/s Mitral E to LV E' Lateral Ratio 7.3 LV E' Septal Velocity 10.7 cm/s Mitral E to LV E' Septal Ratio 9.4 TR Peak Velocity 195.0 cm/s TR Peak Gradient 15.2 mmHg Right Atrial Pressure 10.0 mmHg Pulmonary Artery Systolic Pressu 25.2 mmHg Right Ventricular Systolic Press 25.2 mmHg PV Peak Velocity 63.9 cm/s PV Peak Gradient 1.6 mmHg FINDINGS LEFT VENTRICLE Normal left ventricular size. Wall thickness is normal. The left ventricular systolic function is grossly normal on limited imaging. RIGHT VENTRICLE Normal right ventricular size and systolic function. LEFT ATRIUM The left atrial size is normal. RIGHT ATRIUM The right atrial size is normal. ATRIAL SEPTUM Normal atrial septal thickness without atrial level shunting by limited color doppler interrogation. AORTA The aortic root and proximal ascending aorta are normal in size on limited imaging. MITRAL VALVE Trace mitral valve regurgitation. AORTIC VALVE Trileaflet aortic valve. No aortic valve stenosis or regurgitation. TRICUSPID VALVE There is trace tricuspid valve regurgitation. The estimated pulmonary arterial pressure is 25.2 mmHg. PULMONARY VALVE No pulmonary valve regurgitation or stenosis. VESSELS The inferior vena cava is normal in size. PERICARDIUM No pericardial effusion. Doug Ewing MD (Electronically Signed) Final Date:14 May 2017 14:40
[2017-05-14] MEDS ORDERED: XARE20TA PO (14:53)
--- NOTE | 2017-05-14 14:54 | HHI.DCPOC ---
Discharge Care Plan Diagnosis: (1) Chest pain (2) Polysubstance abuse (3) Acute electrocardiogram changes Goals to Promote Your Health * To prevent worsening of your condition and complications * To maintain your health at the optimal level Directions to Meet Your Goals Take your medications as prescribed Follow your dietary instruction Follow activity as directed Keep your appointments as scheduled Take your immunizations and boosters as scheduled If your symptoms worsen call your PCP, if no PCP go to Urgent Care Center or Emergency Room Smoking is Dangerous to Your Health. Avoid second hand smoke Call the 24-hour hour crisis hotline for domestic abuse at Sumit Colvin May 14, 2017 14:54
[2017-05-14] MEDS ORDERED: AMLO5 PO (14:57)
--- NOTE | 2017-05-14 19:15 | EKG ---
Date Performed: 05/13/2017 Time Performed: 07:38:47 PTAGE: 21 years EKG: Sinus rhythm WITH SINUS ARRHYTHMIA MODERATE T-WAVE ABNORMALITY, CONSIDER ANTERIOR ISCHEMIA ABNORMAL ECG PREVIOUS TRACING : 05/13/2017 02.08 DOCTOR: Huy Chapin Interpretating Date/Time 05/14/2017 19:14:42
--- NOTE | 2017-05-14 23:24 | EKG ---
Date Performed: 05/13/2017 Time Performed: 02:08:10 PTAGE: 21 years EKG: SINUS TACHYCARDIA WITH SHORT AR INTERVAL POSSIBLE LEFT ATRIAL ENLARGEMENT POSSIBLE RIGHT VE NTRICULAR CONDUCTION DELAY MODERATE T-WAVE ABNORMALITY, CONSIDER ANTERIOR ISCHEMIA ABNORMAL ECG PREVIOUS TRACING : 05/13/2017 01.00 DOCTOR: Huy Chapin Interpretating Date/Time 05/14/2017 23:23:22
--- NOTE | 2017-05-14 23:25 | EKG ---
Date Performed: 05/13/2017 Time Performed: 01:00:21 PTAGE: 21 years EKG: Sinus tachycardia INDETERMINATE AXIS POSSIBLE RIGHT VENTRICULAR CONDUCTION DELAY INFERIOR M YOCARDIAL INFARCTION ANTEROLATERAL MYOCARDIAL INFARCTION MARKED ST DEPRESSION, CONSIDER SUBENDOCARDI AL INJURY ABNORMAL ECG PREVIOUS TRACING : 06/22/2015 20.55 DOCTOR: Huy Chapin Interpretating Date/Time 05/14/2017 23:24:46
--- NOTE | 2017-05-15 00:13 | EKG ---
Date Performed: 05/13/2017 Time Performed: 12:08:46 PTAGE: 21 years EKG: Sinus rhythm WITH SINUS ARRHYTHMIA WITH SHORT OH INTERVAL MODERATE T-WAVE ABNORMALITY, CONSIDER ANTERIOR ISCHEMIA ABNORMAL ECG PREVIOUS TRACING : 05/13/2017 07.38 DOCTOR: Huy Chapin Interpretating Date/Time 05/15/2017 00:12:25
== END 2017-05-14 16:51 | disposition home or self-care (01) ==
LOC: PHED 00:51 → PHEDA 03:16 → PHICU 04:19 → PH3A 05-14 02:13
PROVIDERS: ADMIT Hospitalist; ATTEND Hospitalist
DX: R07.9 Chest pain, unspecified (principal); I27.82 Chronic pulmonary embolism; D72.829 Elevated white blood cell count, unspecified; F12.90 Cannabis use, unspecified, uncomplicated; F10.129 Alcohol abuse with intoxication, unspecified; R94.31 Abnormal electrocardiogram [ECG] [EKG]; F17.200 Nicotine dependence, unspecified, uncomplicated; R65.10 Systemic inflammatory response syndrome (SIRS) of non-infectious origin without acute organ dysfunction; Z79.01 Long term (current) use of anticoagulants
CPT/HCPCS: 71045; 71275; 80048; 80053; 80061; 80307; 81001; 82550; 82552; 83735; 84484; 84702; 85025; 85610; 85730; 93005; 93306; 96361; 96374; 96375; 99285; G0378; J2060; J2270; J7030; Q9967

== ENCOUNTER 2017-06-02 21:08 | Observation (INO) | payer SELFPAY, OTHER ==
[2017-06-02] MEDS ORDERED: SODIUM CHLORIDE 0.9% FLUSH 10 ML FLUSH IV FLUSH (22:15)
[2017-06-02] MEDS: SODIUM CHLOR 0.9% 1000 ML INJ 1,000 ML IV (22:21)
[2017-06-02 22:35] LABS: AUTOMATED NEUTROPHIL # 4.9 TH/MM3 (1.8-7.7); BASOPHIL # 0.2 TH/MM3 (0-0.2); BASOPHIL % 2.2 % (0.0-2.0); EOSINOPHIL # 0.1 TH/MM3 (0-0.4); EOSINOPHIL % 1.7 % (0.0-4.0); HEMATOCRIT 44.1 % (35.0-46.0); HEMO FLAGS DIFF FINAL; HEMOGLOBIN 14.3 GM/DL (11.6-15.3); LYMPH % 28.7 % (9.0-44.0); LYMPHOCYTE # 2.3 TH/MM3 (1.0-4.8); MEAN CELL VOLUME 83.7 FL (80.0-100.0); MEAN CORPUSCULAR HEMOGLOBIN 27.1 PG (27.0-34.0); MEAN CORPUSCULAR HGB CONC 32.3 % (32.0-36.0); MEAN PLATELET VOLUME 7.5 FL (7.0-11.0); MONO % 8.3 % (0.0-8.0); MONOCYTE # 0.7 TH/MM3 (0-0.9); NEUT % 59.1 % (16.0-70.0); PLATELET COUNT 307 TH/MM3 (150-450); RED BLOOD COUNT 5.27 MIL/MM3 (4.00-5.30); RED CELL DISTRIBUTION WIDTH 16.6 % (11.6-17.2); WHITE BLOOD COUNT 8.2 TH/MM3 (4.0-11.0)
[2017-06-02 22:42] LABS: BARBITURATES, URINE NEG (NEG)
[2017-06-02 22:51] LABS: AMPHETAMINE, URINE POS (NEG); BENZODIAZEPINE,URINE NEG (NEG)
[2017-06-02 22:53] LABS: CANNABINOIDS, URINE POS (NEG)
[2017-06-02 22:56] LABS: COCAINE, URINE POS (NEG)
[2017-06-02 23:06] LABS: CHLORIDE 101 MEQ/L (98-107); SODIUM (NA) 136 MEQ/L (136-145)
[2017-06-02 23:10] LABS: ALBUMIN 3.8 GM/DL (3.4-5.0); ANION GAP 10 MEQ/L (5-15); BICARBONATE 25.1 MEQ/L (21.0-32.0); CALCIUM 8.7 MG/DL (8.5-10.1); GLUCOSE,RANDOM 69 MG/DL (74-106)
[2017-06-02 23:11] LABS: APTT (PATIENT) 28.7 SEC (24.3-30.1); BLOOD UREA NITROGEN 8 MG/DL (7-18); INTERNATIONAL NORMALIZED RATIO 1.1 RATIO; PROTHROMBIN TIME - PATIENT 11.6 SEC (9.8-11.6)
[2017-06-02 23:14] LABS: ALT (GPT) 28 U/L (10-53); AST (GOT) 25 U/L (15-37); CREATININE 0.61 MG/DL (0.50-1.00); GLOMERULAR FILTRATION RATE 122 ML/MIN (>89)
[2017-06-02 23:15] LABS: TOTAL BILIRUBIN ADULT 1.1 MG/DL (0.2-1.0); TOTAL PROTEIN 7.9 GM/DL (6.4-8.2)
[2017-06-02 23:16] LABS: ALKALINE PHOSPHATASE 114 U/L (45-117); BILIRUBIN, URINE NEG (NEG); BLOOD, URINE NEG (NEG); GLUCOSE,URINE NEG (NEG); KETONE, URINE 80 OR GREATER mg/dL (NEG); NITRITE,URINE NEG (NEG); PH, URINE 5.5 (5.0-8.5); URINE LEUKOCYTE ESTERASE SMALL (NEG)
[2017-06-02 23:17] LABS: CREATINE KINASE 78 U/L (26-192)
[2017-06-02 23:19] LABS: BETA HCG QUANT LESS THAN 1 MIU/ML (0-5)
[2017-06-02 23:22] LABS: BACTERIA, URINE MOD /hpf; COMMENT (UR) CULTURE INDICATED; CULTURE IF INDICATED CULTURE INDICATED; RBC, URINE 0-3 /hpf (0-3); SQUAMOUS EPITHELIAL CELL URINE > 8 /hpf (0-5); URINE COLOR YELLOW (YELLW/STRAW)
[2017-06-02] MEDS: cefTRIAXone INJ 1,000 MG in SODIUM CHLORIDE 0.9% INJ 100 ML IV (23:47)
[2017-06-02] MEDS: diphenhydrAMINE HCL 50 MG/ML VIAL IV PUSH (23:51)
[2017-06-03] MEDS: LORazepam 2 MG/ML VIAL IV PUSH (00:19)
[2017-06-03] MEDS: RIVAROXABAN 20 MG TAB PO (00:19)
[2017-06-03] MEDS ORDERED: ONDANSETRON HCL 4 MG/2 ML VIAL IVP (02:45)
[2017-06-03] MEDS ORDERED: NALOXONE HCL 0.4 MG/ML AMP IV PUSH (02:45)
[2017-06-03] MEDS ORDERED: LACTULOSE SYRUP 20 GM/30 ML CUP PO (02:45)
[2017-06-03] MEDS ORDERED: MAGNESIUM HYDROXIDE SUSP 30 ML CUP PO (02:45)
[2017-06-03] MEDS ORDERED: ACETAMINOPHEN 325 MG TAB PO (02:45)
[2017-06-03] MEDS ORDERED: SODIUM CHLORIDE 0.9% FLUSH 10 ML FLUSH IV FLUSH (02:45)
[2017-06-03] MEDS ORDERED: BISACODYL 10 MG SUPP RECTAL (02:45)
[2017-06-03 03:30] LABS: TROPONIN I LESS THAN 0.02 NG/ML (0.02-0.05)
[2017-06-03 03:40] LABS: CREATINE KINASE 66 U/L (26-192)
[2017-06-03 06:33] LABS: AUTOMATED NEUTROPHIL # 3.2 TH/MM3 (1.8-7.7); BASOPHIL # 0.1 TH/MM3 (0-0.2); BASOPHIL % 1.2 % (0.0-2.0); EOSINOPHIL # 0.3 TH/MM3 (0-0.4); EOSINOPHIL % 4.3 % (0.0-4.0); HEMATOCRIT 40.4 % (35.0-46.0); HEMO FLAGS DIFF FINAL; HEMOGLOBIN 13.3 GM/DL (11.6-15.3); LYMPH % 35.9 % (9.0-44.0); LYMPHOCYTE # 2.5 TH/MM3 (1.0-4.8); MEAN CELL VOLUME 83.8 FL (80.0-100.0); MEAN CORPUSCULAR HEMOGLOBIN 27.6 PG (27.0-34.0); MEAN PLATELET VOLUME 7.6 FL (7.0-11.0); MONO % 11.3 % (0.0-8.0); MONOCYTE # 0.8 TH/MM3 (0-0.9); NEUT % 47.3 % (16.0-70.0); PLATELET COUNT 288 TH/MM3 (150-450); RED BLOOD COUNT 4.82 MIL/MM3 (4.00-5.30); RED CELL DISTRIBUTION WIDTH 15.5 % (11.6-17.2); WHITE BLOOD COUNT 6.9 TH/MM3 (4.0-11.0)
[2017-06-03] MEDS: RIVAROXABAN 15 MG TAB PO (09:30)
[2017-06-03] MEDS: SODIUM CHLORIDE 0.9% FLUSH 10 ML FLUSH IV FLUSH (09:30)
[2017-06-03] MEDS: DOCUSATE SODIUM 50 MG/SENNA 8.6 MG TAB PO (09:30)
[2017-06-03] MEDS: SENNOSIDES 8.6 MG TAB PO (09:33)
[2017-06-03] MEDS: LIDOCAINE-PRILOCAIN 2.5% CREAM 5 GM TUBE TOPICAL (11:00)
[2017-06-03] MEDS: LIDOCAINE HCL 1% 20 ML VIAL INFIL (12:00)
== END 2017-06-03 13:56 | disposition home or self-care (01) ==
LOC: PHEDA 06-03 02:43 → PH3B 06-03 03:29 → PHED 21:08
DX: I82.623 Acute embolism and thrombosis of deep veins of upper extremity, bilateral (principal); F14.129 Cocaine abuse with intoxication, unspecified; R53.81 Other malaise; I27.82 Chronic pulmonary embolism; L29.9 Pruritus, unspecified; R06.02 Shortness of breath; R52 Pain, unspecified; Z91.14 Patient's other noncompliance with medication regimen; R82.99 Other abnormal findings in urine; E03.9 Hypothyroidism, unspecified; R42 Dizziness and giddiness; R11.0 Nausea; J45.909 Unspecified asthma, uncomplicated; Z79.01 Long term (current) use of anticoagulants
CPT/HCPCS: 71045; 80053; 80307; 81001; 82550; 84484; 84702; 85025; 85610; 85730; 87086; 93005; 93970; 96361; 96365; 96375; 99285-25

== ENCOUNTER 2017-06-05 20:01 | Inpatient (IN) | payer SELFPAY ==
[~2017-06-05] VITALS: Ht 162.6 cm; Wt 62.1 kg
[~2017-06-05 20:01] MED LIST changes: -PERC5TAB12 PO
[2017-06-05 20:04] VITALS: BP 121/58; PULSE 88; RESP 18; TEMP 98.2; O2SAT 95
--- NOTE | 2017-06-05 20:27 | PD ---
HPI Chief Complaint: Numbness/Tingling Time Seen by Provider: 20:27 Travel History International Travel<30 days: No Contact w/Intl Traveler<30days: No Traveled to known affect area: No History of Present Illness HPI 21-year-old female came to the emergency room with history of left-sided weakness that she describes as numbness and heaviness since 6:30 to 7:00 this evening. Patient seemed to be somewhat altered mental status almost where she appeared that she was high on some drugs/intoxicated. I had to ask the questions repeatedly to get a satisfactory answer. She seemed jittery but was able to redirect and answer questions. She says that she had taken a nap and woken up from the nap at 3:30 PM. At times she was able to move all 4 extremities. After that she started getting short of breath but continued to move all 4 extremities up until 6:30 to 7 PM. She was denying of any pain. She continued to say that her eyes feel weird and dry. Vital signs were stable upon arrival. Patient denies of any headache. I was unable to get answer to all the questions given her intoxicated state. Patient agreed that she does IV drugs in mainly meth. However she said she hasn't used in past 2 days. [facility] Past Medical History Narrative Medical List of her past medical, surgical, social and family history is reviewed from the nursing note. Hx Anticoagulant Therapy: Yes Asthma: Yes ( CHILD) Blood Disorders: Yes (Blood clots ( DVT and PE)) Anxiety: Yes Depression: Yes Cardiovascular Problems: Yes (R LEG DVT AND PE) Diabetes: No Diminished Hearing: No Deep Vein Thrombosis: Yes Endocrine: Yes Genitourinary: No Musculoskeletal: No Neurologic: No Psychiatric: Yes Respiratory: Yes (PE) Immunizations Current: Yes Thyroid Disease: Yes (hx of hypo while ) Influenza Vaccination: Yes ?: Not Menopausal: No : 1 Para: 1 Past Surgical History Oral Surgery: Yes (TONSILS) Tonsillectomy: Yes Social History Alcohol Use: Yes (2 beers daily) Tobacco Use: Yes (1/2 PPD) Substance Use: Yes (COCAINE, MARIJUANA, AMPHETAMINES) Allergies-Medications (Allergen,Severity, Reaction): Coded Allergies: No Known Allergies (Verified Allergy, Unknown, 06/05/17) Comments No known drug allergies. Reported Meds & Prescriptions Reported Meds & Active Scripts Active Xarelto (Rivaroxaban) 20 Mg Tab 20 Mg PO DAILY 30 Days start after 15 mg tab regimen is completed Narrative Medication List of her home medications reviewed from the nursing note. Review of Systems Except as stated in HPI: all other systems reviewed are Neg Neurologic: Positive: Weakness Physical Exam Narrative GENERAL: Altered mental status, appears intoxicated, disheveled, moderate distress SKIN: Focused skin assessment warm/dry. Multiple needle tracks and bruises on her upper and lower extremities HEAD: Atraumatic. Normocephalic. EYES: Pupils equal and round. No scleral icterus. No injection or drainage. ENT: No nasal bleeding or discharge. Mucous membranes pink and moist. NECK: Trachea midline. No JVD. CARDIOVASCULAR: Regular rate and rhythm. No murmur appreciated. RESPIRATORY: No accessory muscle use. Clear to auscultation. Breath sounds equal bilaterally. GASTROINTESTINAL: Abdomen soft, non-tender, nondistended. Hepatic and splenic margins not palpable. MUSCULOSKELETAL: No obvious deformities. No clubbing. No cyanosis. No edema. NEUROLOGICAL: Intoxicated and attention deficit. Needs to be redirected multiple times to follow commands. Delirium to some extent. Left upper extremity pronator drift and left lower extremity weakness where there is slight effort with gravity to move the leg up off the mattress. Decreased sensation on the left side. NIH stroke score of 4 PSYCHIATRIC: Appropriate mood and affect; insight and judgment normal. Data Data Last Documented VS Vital Signs Date Time Temp Pulse Resp B/P (MAP) Pulse Ox O2 Delivery O2 Flow Rate FiO2 06/05/17 21:51 Aerosol Mask 06/05/17 21:40 83 18 114/75 (88) 99 06/05/17 20:04 98.2 Orders Orders Cath For Specimen (06/05/17 20:33) Neuro Checks Q2HX12,Q4H (06/05/17 20:33) Nursing Bedside Swallow Assess .ONCE (06/05/17 20:33) Prothrombin Time / Inr (Pt) (06/05/17 20:33) Act Partial Throm Time (Ptt) (06/05/17 20:33) Complete Blood Count With Diff (06/05/17 20:33) Basic Metabolic Panel (Bmp) (06/05/17 20:33) Fibrinogen (06/05/17 20:33) Creatine Kinase (Cpk) (06/05/17 20:33) Troponin I (06/05/17 20:33) Ua Includes Microscopic (06/05/17 20:33) Type And Screen (06/05/17 20:33) Ct Brain W/O Iv Contrast(Rout) (06/05/17 ) Cta Brain W Iv Contrast W 3d (06/05/17 20:33) Cta Neck W Iv Contrast W 3d (06/05/17 20:33) Electrocardiogram (06/05/17 ) Beta Hcg (Quant/Titer) (06/05/17 20:33) Consult Neurology (06/05/17 20:33) Sodium Chlor 0.9% 1000 Ml Inj (Ns 1000 M (06/05/17 20:33) Blood Glucose (06/05/17 20:33) Ecg Monitoring (06/05/17 20:33) Iv Access Insert/Monitor (06/05/17 20:33) NPO (06/05/17 20:33) Oximetry (06/05/17 20:33) Resp Oxygen Nc Stroke (06/05/17 ) Drug Screen, Random Urine (06/05/17 20:35) Alcohol (Ethanol) (06/05/17 20:33) Sodium Chlor 0.9% 1000 Ml Inj (Ns 1000 M (06/05/17 20:45) Westergren Sedimentation Rate (06/05/17 20:40) Mri Brain W/O Contrast (06/05/17 ) (Hub Use Only)Inp Phy Cons/Ref (06/05/17 21:14) Potassium Chloride (Kcl) (06/05/17 21:45) Potassium Chlor 10 Meq Premix (Kcl 10 Me (06/05/17 21:45) Albuterol-Ipratropium Neb (Duoneb Neb) (06/05/17 21:48) Albuterol Neb (Albuterol Neb) (06/05/17 22:15) Admit Order (Ed Use Only) (06/05/17 22:17) Admit To Inpatient (06/05/17 ) Code Status (06/05/17 22:14) Vital Signs (Adult) Q4H (06/05/17 22:14) Nih Stroke Scale - Nihss .On admission and discharge (06/05/17 22:14) Neuro Checks Q4H (06/05/17 22:14) Consult Pt Eval & Tx Oob (06/05/17 22:14) Case Management Consult (06/05/17 ) Nursing Bedside Swallow Assess .ONCE (06/05/17 22:14) Scd Bilateral/Knee High EVA.QSHIFT (06/05/17 22:14) Hemoglobin (Hgb) A1c (06/06/17 06:00) Lipid Profile (06/06/17 06:00) Resp Oxygen Nc Stroke (06/05/17 ) ^ Hold Medication (06/05/17 22:14) Sodium Chloride 0.9% Flush (Ns Flush) (06/06/17 09:00) Sodium Chloride 0.9% Flush (Ns Flush) (06/05/17 22:15) Sodium Chlor 0.9% 1000 Ml Inj (Ns 1000 M (06/05/17 22:14) Enalaprilat Inj (Vasotec Inj) (06/05/17 22:15) Aspirin Chew (Aspirin Chew) (06/06/17 09:00) Pravastatin (Pravachol) (06/06/17 21:00) ^ Discontinue Insulin Orders (06/05/17 22:14) Insulin Aspart Supplemtl Scale (Novolog (06/06/17 08:00) Dextrose 50% In Jeremie (Vial) Inj (D50w (Vi (06/05/17 22:15) Glucagon Inj (Glucagon Inj) (06/05/17 22:15) Labor Operator / Telemetry EVA.Q8H (06/05/17 22:14) Consult Stroke Navigator (06/05/17 ) Scd Bilateral/Knee High EVA.BID (06/05/17 22:14) Shlomo Bilateral/Knee High EVA.QSHIFT (06/05/17 22:18) Inpatient Certification (06/05/17 ) Labs Laboratory Tests Test 06/05/17 20:35 06/05/17 21:05 White Blood Count 7.5 TH/MM3 Red Blood Count 5.24 MIL/MM3 Hemoglobin 14.5 GM/DL Hematocrit 44.2 % Mean Corpuscular Volume 84.3 FL Mean Corpuscular Hemoglobin 27.7 PG Mean Corpuscular Hemoglobin Concent 32.9 % Red Cell Distribution Width 15.7 % Platelet Count 342 TH/MM3 Mean Platelet Volume 7.4 FL Neutrophils (%) (Auto) 55.0 % Lymphocytes (%) (Auto) 33.0 % Monocytes (%) (Auto) 7.9 % Eosinophils (%) (Auto) 3.3 % Basophils (%) (Auto) 0.8 % Neutrophils # (Auto) 4.1 TH/MM3 Lymphocytes # (Auto) 2.5 TH/MM3 Monocytes # (Auto) 0.6 TH/MM3 Eosinophils # (Auto) 0.2 TH/MM3 Basophils # (Auto) 0.1 TH/MM3 CBC Comment DIFF FINAL Differential Comment Erythrocyte Sedimentation Rate 1 mm/hr Prothrombin Time 11.4 SEC Prothromb Time International Ratio 1.1 RATIO Activated Partial Thromboplast Time 26.4 SEC Fibrinogen 288 mg/dL Blood Urea Nitrogen 6 MG/DL Creatinine 0.71 MG/DL Random Glucose 78 MG/DL Calcium Level 9.1 MG/DL Sodium Level 141 MEQ/L Potassium Level 3.1 MEQ/L Chloride Level 104 MEQ/L Carbon Dioxide Level 26.8 MEQ/L Anion Gap 10 MEQ/L Estimat Glomerular Filtration Rate 102 ML/MIN Total Creatine Kinase 72 U/L Troponin I LESS THAN 0.02 NG/ML Human Chorionic Gonadotropin, Quant LESS THAN 1 MIU/ML Ethyl Alcohol Level LESS THAN 3 MG/DL Urine Collection Type CATH Urine Color WILBER Urine Turbidity SLIGHT Urine pH 6.0 Urine Specific Irwin 1.029 Urine Protein 30 mg/dL Urine Glucose (UA) NEG mg/dL Urine Ketones 40 mg/dL Urine Occult Blood NEG Urine Nitrite NEG Urine Bilirubin NEG Urine Leukocyte Esterase NEG Urine RBC 0-3 /hpf Urine WBC 3-5 /hpf Urine Squamous Epithelial Cells 0-5 /hpf Urine Hyaline Casts 3-5 /lpf Urine Granular Casts 0-2 /lpf Urine Mucus FEW /lpf Urine Opiates Screen NEG Urine Barbiturates Screen NEG Urine Amphetamines Screen POS Urine Benzodiazepines Screen NEG Urine Cocaine Screen POS Urine Cannabinoids Screen POS MDM Medical Decision Making Medical Screen Exam Complete: Yes Emergency Medical Condition: Yes Medical Record Reviewed: Yes Interpretation(s) Twelve-lead EKG was reviewed by me. Normal sinus rhythm, normal axis, nonspecific ST-T wave changes. Heart rate of 86 bpm. Differential Diagnosis CVA, intracranial bleed, toxic encephalopathy Narrative Course 10:[address] Sevilla was called once patient was identified as a stroke alert. Head CT was done which was negative for any head bleed. Upon reviewing her medical record quickly it was noticed that patient was diagnosed with DVT and PE recently. She was given a dose of Xarelto and given a prescription to go home with on 02 June. It is unclear whether patient says her prescription and has been taking the Xarelto. But she definitely got a dose of Xarelto 3 days ago. Based on this it was decided by the neurologist that she was not a TPA candidate. CT of the head and neck was ordered. CT of the head is negative. Awaiting for the CT of the neck report. The neurologist wanted an MRI of the brain without contrast which has been ordered. Meanwhile urine drug screen has come back positive for cocaine and methamphetamine. Patient is little more alert and is moving all 4 extremities with same strength at this point. I have decided to admit the patient and I discussed the case with the hospitalist who has accepted. After patient came back from the CTA she was wheezing and was given a breathing treatment. I reassessed her and air entry was back to normal after the treatment. Critical Care Narrative Aggregate critical care time was 45 minutes. Time to perform other separately billable procedures was not included in the critical care time. My time did not include minutes spent treating any other patients simultaneously or on activities that did not directly contribute to the patient's treatment. The services I provided to this patient were to treat and/or prevent clinically significant deterioration that could result in: Stroke alert I provided critical care services requiring my management, as noted below: Chart data review, documentation time, medication orders and management, vital sign assessments/reviewing monitor data, ordering and reviewing lab tests, ordering and interpreting/reviewing x-rays and diagnostic studies, care of the patient and discussion of the patient with the admitting physicians. Procedures EKG Prior to Arrival: No Physician Communication Physician Communication Dr. Sevilla Diagnosis Primary Impression: CVA (cerebral vascular accident) Qualified Codes: I63.9 - Cerebral infarction, unspecified Additional Impressions: IVDU (intravenous drug user) Cocaine abuse Methamphetamine abuse Altered mental status Qualified Codes: R41.0 - Disorientation, unspecified Admitting Information Admitting Physician Requests: Raghav Robbins MD Jun 05, 2017 20:27
[2017-06-05 20:28] VITALS: BP 109/60; PULSE 77; RESP 16; O2SAT 98
[2017-06-05] MEDS ORDERED: SODIUM CHLOR 0.9% 1000 ML INJ 1,000 ML IV ONE ×2 (20:33→20:45)
--- NOTE | 2017-06-05 20:54 | RADRPT ---
EXAM DATE/TIME: 06/05/2017 20:38 [facility] COMPARISON: No previous studies available for comparison. INDICATIONS : Numbenss in left arm and leg RADIATION DOSE: 65.62 CTDIvol (mGy) This report was called by Dr. Jc to Dr. Diaz at 8: 49 PM MEDICAL HISTORY : Deep venous thrombosis. substance abuse SURGICAL HISTORY : Tonsillectomy. ENCOUNTER: Initial ACUITY: 1 day PAIN SCALE: 0/10 LOCATION: Left extremities TECHNIQUE: Multiple contiguous axial images were obtained of the head. Using automated exposure control and adj ustment of the mA and/or kV according to patient size, radiation dose was kept as low as reasonably a chievable to obtain optimal diagnostic quality images. DICOM format image data is available electro nically for review and comparison. FINDINGS: CEREBRUM: The ventricles are normal for age. No evidence of midline shift, mass lesion, hemorrhage or acute in farction. No extra-axial fluid collections are seen. POSTERIOR FOSSA: The cerebellum and brainstem are intact. The 4th ventricle is midline. The cerebellopontine angle i s unremarkable. EXTRACRANIAL: The visualized portion of the orbits is intact. SKULL: The calvaria is intact. No evidence of skull fracture. CONCLUSION: Normal noncontrast head CT. CTA to follow. Kenton Jc MD on June 05, 2017 at 20:50 Board Certified Radiologist. This report was verified electronically.
[2017-06-05 21:08] LABS: AUTOMATED NEUTROPHIL # 4.1 TH/MM3 (1.8-7.7); BASOPHIL # 0.1 TH/MM3 (0-0.2); BASOPHIL % 0.8 % (0.0-2.0); EOSINOPHIL # 0.2 TH/MM3 (0-0.4); EOSINOPHIL % 3.3 % (0.0-4.0); HEMATOCRIT 44.2 % (35.0-46.0); HEMOGLOBIN 14.5 GM/DL (11.6-15.3); LYMPHOCYTE # 2.5 TH/MM3 (1.0-4.8); MEAN CELL VOLUME 84.3 FL (80.0-100.0); MEAN CORPUSCULAR HEMOGLOBIN 27.7 PG (27.0-34.0); MEAN CORPUSCULAR HGB CONC 32.9 % (32.0-36.0); MEAN PLATELET VOLUME 7.4 FL (7.0-11.0); MONO % 7.9 % (0.0-8.0); MONOCYTE # 0.6 TH/MM3 (0-0.9); PLATELET COUNT 342 TH/MM3 (150-450); RED BLOOD COUNT 5.24 MIL/MM3 (4.00-5.30); RED CELL DISTRIBUTION WIDTH 15.7 % (11.6-17.2); WHITE BLOOD COUNT 7.5 TH/MM3 (4.0-11.0)
[2017-06-05 21:22] LABS: INTERNATIONAL NORMALIZED RATIO 1.1 RATIO; PROTHROMBIN TIME - PATIENT 11.4 SEC (9.8-11.6)
[2017-06-05 21:23] LABS: BLOOD UREA NITROGEN 6 MG/DL (7-18); CREATININE 0.71 MG/DL (0.50-1.00); GLOMERULAR FILTRATION RATE 102 ML/MIN (>89)
[2017-06-05 21:24] LABS: BICARBONATE 26.8 MEQ/L (21.0-32.0); CALCIUM 9.1 MG/DL (8.5-10.1); CHLORIDE 104 MEQ/L (98-107); GLUCOSE,RANDOM 78 MG/DL (74-106); SODIUM (NA) 141 MEQ/L (136-145)
[2017-06-05 21:25] LABS: TROPONIN I LESS THAN 0.02 NG/ML (0.02-0.05)
[2017-06-05 21:27] LABS: BLOOD, URINE NEG (NEG); GLUCOSE,URINE NEG (NEG); KETONE, URINE 40 mg/dL (NEG); NITRITE,URINE NEG (NEG); URINE LEUKOCYTE ESTERASE NEG (NEG)
[2017-06-05] MEDS ORDERED: IOHEXOL 350 MG/ML 10 ML VIAL (for RAD DIAG) IVCONTRAST ONE (21:30)
[2017-06-05 21:34] LABS: BILIRUBIN, URINE NEG (NEG)
[2017-06-05 21:37] LABS: URINE COLOR AMBER (YELLW/STRAW)
[2017-06-05 21:38] LABS: MUCUS URINE FEW /lpf (OCC)
[2017-06-05 21:40] VITALS: BP 114/75; PULSE 83; RESP 18; O2SAT 99
[2017-06-05 21:40] LABS: RBC, URINE 0-3 /hpf (0-3); SQUAMOUS EPITHELIAL CELL URINE 0-5 /hpf (0-5)
[2017-06-05] MEDS ORDERED: POTASSIUM CHLORIDE 20 MEQ CONTROLLED RELEASE TAB PO ONE (21:45)
[2017-06-05] MEDS ORDERED: POTASSIUM CHLOR 10 MEQ PREMIX 100 ML IV ONE (21:45)
[2017-06-05] MEDS ORDERED: RESP: ALBUTEROL 2.5 MG/IPRATROPIUM 0.5 MG NEB (PRN) ONE (21:48)
--- NOTE | 2017-06-05 21:57 | RADRPT ---
EXAM DATE/TIME: 06/05/2017 21:19 [facility] COMPARISON: No previous studies available for comparison. INDICATIONS : Numbness left arm and leg IV CONTRAST: 75 cc Omnipaque 350 (iohexol) IV RADIATION DOSE: 42.31 CTDIvol (mGy) ; Combined studies MEDICAL HISTORY : Deep venous thrombosis. substance abuse SURGICAL HISTORY : Tonsillectomy. ENCOUNTER: Initial ACUITY: 1 day PAIN SCALE: 0/10 LOCATION: Left extremities TECHNIQUE: Volumetric scanning was performed using a multi-row detector CT scanner. The data was post processed with a variety of visualization algorithms including full volume maximum intensity projection, multi -planar sliding thin slab reformation, curved planar reformation, and surface rendering techniques. Using automated exposure control and adjustment of the mA and/or kV according to patient size, radiat ion dose was kept as low as reasonably achievable to obtain optimal diagnostic quality images. DICO M format image data is available electronically for review and comparison. FINDINGS: There is excellent visualization of the major intracranial arteries out to the second-order branch ve ssels. There is no evidence for aneurysm, vessel truncation or stenosis, and no evidence for vascula r malformation. Developmentally small left P1 segment with a prominent left posterior communicating incidentally note d. CONCLUSION: Intracranial arteries are normal. Kenton Jc MD on June 05, 2017 at 21:54 Board Certified Radiologist. This report was verified electronically.
--- NOTE | 2017-06-05 22:12 | RADRPT ---
EXAM DATE/TIME: 06/05/2017 21:19 [facility] COMPARISON: No previous studies available for comparison. INDICATIONS : Numbness left arm and leg IV CONTRAST: 75 cc Omnipaque 350 (iohexol) IV ; Cumulative dose for multiple exams. RADIATION DOSE: 42.31 CTDIvol (mGy) ; Combined studies MEDICAL HISTORY : Deep venous thrombosis. substance abuse SURGICAL HISTORY : Tonsillectomy. ENCOUNTER: Initial ACUITY: 1 day PAIN SCALE: 0/10 LOCATION: Left extremities Elevated flow velocities and ICA/CCA ratios have been found to correlate with increased degrees of vessel stenosis, calculated as percentage of diameter relative to a normal segment of distal ICA/CCA. TECHNIQUE: Volumetric scanning was performed using a multirow detector CT scanner. The data was post processed with a variety of visualization algorithms including full-volume maximum intensity projection, multip lanar sliding thin-slab reformation, curved-planar reformation, and surface-rendering techniques. Us ing automated exposure control and adjustment of the mA and/or kV according to patient size, radiatio n dose was kept as low as reasonably achievable to obtain optimal diagnostic quality images. DICOM f ormat image data is available electronically for review and comparison. FINDINGS: AORTIC ARCH: There is a three-vessel origin of the great vessels from the aorta. No evidence of ostial narrowing. RIGHT CAROTID: The common carotid artery is intact. The carotid bulb has a normal configuration without ulceration o r narrowing. The internal carotid artery lumen is smooth without stenosis. The external carotid wilton ry is intact. LEFT CAROTID: The common carotid artery is intact. The carotid bulb has a normal configuration without ulceration or narrowing. The internal carotid artery lumen is smooth without stenosis. The external carotid ar sharddha is intact. VERTEBRALS: The vertebral arteries have a symmetric diameter. No stenotic lesions are seen. CONCLUSION: Normal CTA of the neck. Kenton Jc MD on June 05, 2017 at 22:09 Board Certified Radiologist. This report was verified electronically.
[2017-06-05] MEDS: SODIUM CHLOR 0.9% 1000 ML INJ 1,000 ML IV SCH (22:14)
[2017-06-05] MEDS ORDERED: DEXTROSE 50% IN WATER 50 ML VIAL(D50) IV PUSH PRN (22:15)
[2017-06-05] MEDS ORDERED: GLUCAGON 1 MG/ML VIAL OTHER PRN (22:15)
[2017-06-05] MEDS ORDERED: SODIUM CHLORIDE 0.9% FLUSH 10 ML FLUSH IV FLUSH PRN (22:15)
[2017-06-05] MEDS ORDERED: RESP: ALBUTEROL 2.5 MG/3 ML NEB (SCH) NEB ONE (22:15)
[2017-06-05] MEDS ORDERED: ENALAPRILAT 1.25 MG/ML VIAL IV PUSH PRN (22:15)
[2017-06-05 22:44] VITALS: O2SAT 99
--- NOTE | 2017-06-05 23:14 | RADRPT ---
EXAM DATE/TIME: 06/05/2017 22:56 [facility] COMPARISON: CT BRAIN W/O CONTRAST, June 05, 2017, 20:38. INDICATIONS : Numbnss in left arm and leg. MEDICAL HISTORY : Deep venous thrombosis. Pulmonary embolis. Substance abuse. SURGICAL HISTORY : Tonsillectomy. ENCOUNTER: Initial ACUITY: 1 day PAIN SCORE: 0/10 LOCATION: cranial TECHNIQUE: Multiplanar, multisequence MRI of the brain was performed without contrast. FINDINGS: CEREBRUM: The ventricles are normal for age. No evidence of midline shift, mass lesion, hemorrhage or acute in farction. No extraaxial fluid collections are seen. The pituitary gland and suprasellar cistern are normal in configuration. WHITE MATTER: No significant signal abnormalities are seen in the white matter. POSTERIOR FOSSA: The cerebellum and brainstem are intact. The 4th ventricle is midline. The cerebellopontine angle is unremarkable. The cerebellar tonsils are normal in position. DIFFUSION IMAGING: No focal areas of restricted diffusion are seen. No evidence of acute infarction. EXTRACRANIAL: The visualized portions of the orbits and paranasal sinuses are unremarkable. CONCLUSION: Normal examination. Kenton Diallo MD on June 05, 2017 at 23:09 Board Certified Radiologist. This report was verified electronically.
[2017-06-05 23:55] VITALS: PULSE 75
[2017-06-06] VITALS (11 sets, daily range): BP systolic 93–121; BP diastolic 53–74; PULSE 56–78; RESP 16–20; TEMP 96.9–97.9; O2SAT 95–99
[2017-06-06] MEDS: SODIUM CHLOR 0.9% 1000 ML INJ 1,000 ML IV SCH (07:18)
[2017-06-06] MEDS: INSULIN ASPART SUPPLEMENTAL SCALE SQ SCH ×2 (07:36→11:43)
[2017-06-06] MEDS: SODIUM CHLORIDE 0.9% FLUSH 10 ML FLUSH IV FLUSH SCH ×2 (08:33→20:25)
[2017-06-06] MEDS: ASPIRIN 81 MG CHEW TAB PO SCH (08:45)
--- NOTE | 2017-06-06 12:04 | MB ---
cc: LUKE HARIRS M.D. DATE OF CONSULTATION: 06/06/2017 REASON FOR CONSULTATION: Neurological consultation. HISTORY OF PRESENT ILLNESS: The patient is a 21 year-old seen in neurological consultation. A stroke alert was called when she was in the emergency room yesterday. The patient presented with left-sided weakness. I discussed with Dr. Diaz on several occasions and also looked at the records. We felt the patient was not a candidate for TPA because of multiple reasons, including IV drug abuse, recent positive toxicology on the , Xarelto use for deep venous thrombosis. The patient had a number of studies including MRI brain, CT angio of the head and neck and they were all normal. This morning she is seen and she is still complaining of some left-sided weakness which seems to be minimal and, therefore, it is limited. There is no facial weakness. Speech is normal. She is in no distress. Ocular movements and visual jones full. No aphasia. Reflexes were trace responsive and plantar responses were flexor. ASSESSMENT/PLAN: 1. Mostly resolved neurological symptoms on the left side. 2. History of IV drug use with positive toxicology yesterday and also 3 days ago which included amphetamines, cocaine and cannabinoids. The patient was not a candidate for TPA as discussed above, also on recent introduction on Xarelto for DVT and pulmonary embolism. Continue baby aspirin and statin as initiated. Rehab care for the drug abuse. Lipid profile pending. I will follow the patient as needed. We will also need to obtain an echocardiogram in case it has not been done yet and I will check on these. Thank you for asking us to assist in her care. Luke Harris MD [facility] /11:03 AM /11:49 AM
--- NOTE | 2017-06-06 12:20 | EKG ---
Date Performed: 06/05/2017 Time Performed: 20:50:21 PTAGE: 21 years EKG: Sinus rhythm WITH SINUS ARRHYTHMIA WITH SHORT RI INTERVAL BORDERLINE ECG PREVIOUS TRACING : 06/03/2017 03.04 Since the prior tracing, there has been no significant jimenez DOCTOR: Carlos Sarabia Interpretating Date/Time 06/06/2017 12:19:15
[2017-06-06 12:48] LABS: CHOLESTEROL 104 MG/DL (120-200); TRIGLYCERIDES 63 MG/DL (42-150)
[2017-06-06 12:50] LABS: CHOLESTEROL/ HDL RATIO 2.67 RATIO; HDL CHOLESTEROL 38.9 MG/DL (40.0-60.0); LDL CHOLESTEROL 53 MG/DL (0-99)
--- NOTE | 2017-06-06 13:12 | HHI.HP ---
[facility] No Primary Care Physician Admission Diagnosis CVA, IV drug abuse Diagnoses: (1) History of pulmonary embolus (PE) (2) Acute left-sided muscle weakness (3) IVDU (intravenous drug user) Chief Complaint: Left sided weakness Travel History International Travel<30 Days: No Contact w/Intl Traveler <30 Da: No Traveled to Known Affected Are: No History of Present Illness 21 year-old female for medical history of IV drug use, PE on oral anticoagulation along with multiple inpatient admissions was brought in yesterday for evaluation of an acute onset of left-sided weakness started sometime around 6:30 to 7 PM last evening for which a stroke alert was called and neurology consulted. It was described by patient as heaviness and numbness in mostly in left lower extremity. However, on arrival patient was altered and was found to have positive UDS for cocaine, meds and cannabinoids. Today, she reported improvement of her neuro symptoms although her left lower extremity remains slightly weak. She denies any slurring of speech. She has no chest pain or shortness of breath. Review of Systems Except as stated in HPI: all other systems reviewed are Neg Past Family Social History Past Medical History Pulmonary emboli DVT History of polysubstance abuse Past Surgical History None Reported Medications Xarelto (Rivaroxaban) 20 Mg Tab 20 Mg PO DAILY 30 Days start after 15 mg tab regimen is completed Allergies: Coded Allergies: No Known Allergies (Verified Allergy, Unknown, 06/05/17) Family History Reviewed and significant for father from cancer of the lymph nodes Social History Patient does smoke a pack a cigarettes a day since she was 11 years old. Patient does drink alcohol. She does participate in illicit drug activity with snorting cocaine, meth and smoking marijuana.She now reports IVDU Physical Exam Vital Signs Vital Signs Date Time Temp Pulse Resp B/P (MAP) Pulse Ox O2 Delivery O2 Flow Rate FiO2 06/06/17 11:50 97.5 72 20 95/53 (67) 96 06/06/17 08:01 56 06/06/17 07:50 96.9 67 20 93/54 (67) 95 06/06/17 04:34 97.9 70 18 115/68 (84) 99 06/06/17 00:06 97.4 72 16 121/74 (90) 98 06/05/17 23:55 75 06/05/17 23:15 06/05/17 22:44 99 21 06/05/17 21:51 Aerosol Mask 06/05/17 21:40 83 18 114/75 (88) 99 Room Air 06/05/17 20:28 77 16 109/60 (76) 98 Room Air 06/05/17 20:04 98.2 88 18 121/58 (79) 95 Physical Exam GENERAL: This is a well-nourished, well-developed patient, in no apparent distress. SKIN: No rashes, ecchymoses or lesions. Cool and dry. HEAD: Atraumatic. Normocephalic. No temporal or scalp tenderness. EYES: Pupils equal round and reactive. Extraocular motions intact. No scleral icterus. No injection or drainage. ENT: Nose without bleeding, purulent drainage or septal hematoma. Throat without erythema, tonsillar hypertrophy or exudate. Uvula midline. Airway patent. NECK: Trachea midline. No JVD or lymphadenopathy. Supple, nontender, no meningeal signs. CARDIOVASCULAR: Regular rate and rhythm without murmurs, gallops, or rubs. RESPIRATORY: Clear to auscultation. Breath sounds equal bilaterally. No wheezes , rales, or rhonchi. GASTROINTESTINAL: Abdomen soft, non-tender, nondistended. No hepato-splenomegaly , or palpable masses. No guarding. MUSCULOSKELETAL: Extremities without clubbing, cyanosis, or edema. No joint tenderness, effusion, or edema noted. No calf tenderness. Negative Homans sign bilaterally. NEUROLOGICAL: Awake and alert. Cranial nerves II through XII intact. Motor and sensory grossly within normal limits. Five out of 5 muscle strength in all muscle groups. Normal speech. Laboratory Laboratory Tests Test 06/05/17 20:35 06/05/17 21:05 06/06/17 07:08 White Blood Count 7.5 Red Blood Count 5.24 Hemoglobin 14.5 Hematocrit 44.2 Mean Corpuscular Volume 84.3 Mean Corpuscular Hemoglobin 27.7 Mean Corpuscular Hemoglobin Concent 32.9 Red Cell Distribution Width 15.7 Platelet Count 342 Mean Platelet Volume 7.4 Neutrophils (%) (Auto) 55.0 Lymphocytes (%) (Auto) 33.0 Monocytes (%) (Auto) 7.9 Eosinophils (%) (Auto) 3.3 Basophils (%) (Auto) 0.8 Neutrophils # (Auto) 4.1 Lymphocytes # (Auto) 2.5 Monocytes # (Auto) 0.6 Eosinophils # (Auto) 0.2 Basophils # (Auto) 0.1 CBC Comment DIFF FINAL Differential Comment Erythrocyte Sedimentation Rate 1 Prothrombin Time 11.4 Prothromb Time International Ratio 1.1 Activated Partial Thromboplast Time 26.4 Fibrinogen 288 Blood Urea Nitrogen 6 Creatinine 0.71 Random Glucose 78 Calcium Level 9.1 Sodium Level 141 Potassium Level 3.1 Chloride Level 104 Carbon Dioxide Level 26.8 Anion Gap 10 Estimat Glomerular Filtration Rate 102 Total Creatine Kinase 72 Troponin I LESS THAN 0.02 Human Chorionic Gonadotropin, Quant LESS THAN 1 Ethyl Alcohol Level LESS THAN 3 Urine Collection Type CATH Urine Color WILBER Urine Turbidity SLIGHT Urine pH 6.0 Urine Specific [place] 1.029 Urine Protein 30 Urine Glucose (UA) NEG Urine Ketones 40 Urine Occult Blood NEG Urine Nitrite NEG Urine Bilirubin NEG Urine Leukocyte Esterase NEG Urine RBC 0-3 Urine WBC 3-5 Urine Squamous Epithelial Cells 0-5 Urine Hyaline Casts 3-5 Urine Granular Casts 0-2 Urine Mucus FEW Urine Opiates Screen NEG Urine Barbiturates Screen NEG Urine Amphetamines Screen POS Urine Benzodiazepines Screen NEG Urine Cocaine Screen POS Urine Cannabinoids Screen POS Triglycerides Level 63 Cholesterol Level 104 LDL Cholesterol 53 HDL Cholesterol 38.9 Cholesterol/HDL Ratio 2.67 Result Diagram: 06/05/17203406/05/172034 Imaging Last Impressions Neck CTA 06/05/172032 Signed Impressions: Service Date/Time: Monday, June 05, 2017 21:19 - CONCLUSION: Normal CTA of the neck. Kenton Jc MD Head CTA 06/05/172032 Signed Impressions: Service Date/Time: Monday, June 05, 2017 21:19 - CONCLUSION: Intracranial arteries are normal. Kenton Jc MD Head CT 06/05/17 0000 Signed Impressions: Service Date/Time: Monday, June 05, 2017 20:38 - CONCLUSION: Normal noncontrast head CT. CTA to follow. Kenton Jc MD Brain MRI 06/05/17 0000 Signed Impressions: Service Date/Time: Monday, June 05, 2017 22:56 - CONCLUSION: Normal examination. MD Sergio Lambert VTE Risk Assessment Caprini VTE Risk Assessment: No/Low Risk (score <= 1) Caprini Risk Assessment Model Point Value = 1 Point Value = 2 Point Value = 3 Point Value = 5 Age 41-60 Minor surgery BMI > 25 kg/m2 Swollen legs Varicose veins or History of unexplained or recurrent spontaneous Oral contraceptives or hormone replacement Sepsis (< 1 month) Serious lung disease, including pneumonia (< 1 month) Abnormal pulmonary function Acute myocardial infarction Congestive heart failure (< 1 month) History of inflammatory bowel disease Medical patient at bed rest Age 61-74 Arthroscopic surgery Major open surgery (> 45 min) Laparoscopic surgery (> 45 min) Malignancy Confined to bed (> 72 hours) Immobilizing plaster cast Central venous access Age >= 75 History of VTE Family history of VTE Factor V Leiden Prothrombin [id number] Lupus anticoagulant Anticardiolipin antibodies Elevated serum homocysteine Heparin-induced thrombocytopenia Other congenital or acquired thrombophilia Stroke (< 1 month) Elective arthroplasty Hip, pelvis, or leg fracture Acute spinal cord injury (< 1 month) Prophylaxis Regimen Total Risk Factor Score Risk Level Prophylaxis Regimen 0-1 Low Early ambulation 2 Moderate Order ONE of the following: *Sequential Compression Device (SCD) *Heparin 5000 units SQ BID 3-4 Higher Order ONE of the following medications: *Heparin 5000 units SQ TID *Enoxaparin/Lovenox 40 mg SQ daily (WT < 150 kg, CrCl > 30 mL/min) *Enoxaparin/Lovenox 30 mg SQ daily (WT < 150 kg, CrCl > 10-29 mL/min) *Enoxaparin/Lovenox 30 mg SQ BID (WT < 150 kg, CrCl > 30 mL/min) AND/OR *Sequential Compression Device (SCD) 5 or more Highest Order ONE of the following medications: *Heparin 5000 units SQ TID (Preferred with Epidurals) *Enoxaparin/Lovenox 40 mg SQ daily (WT < 150 kg, CrCl > 30 mL/min) *Enoxaparin/Lovenox 30 mg SQ daily (WT < 150 kg, CrCl > 10-29 mL/min) *Enoxaparin/Lovenox 30 mg SQ BID (WT < 150 kg, CrCl > 30 mL/min) AND *Sequential Compression Device (SCD) Assessment and Plan Problem List: (1) Acute left-sided muscle weakness ICD Code: M62.81 - Muscle weakness (generalized) (2) History of pulmonary embolus (PE) ICD Code: Z86.711 - Personal history of pulmonary embolism (3) IVDU (intravenous drug user) ICD Code: F19.90 - Other psychoactive substance use, unspecified, uncomplicated Assessment and Plan 21-year-old female with Left-sided weakness-now improving Initial stroke alert called in a month however TPA was contraindicated at a time due to patient being currently on Xarelto for PE Head CT dated and review by me without any intracranial abnormality Brain MRI noted and review by me with normal examination Neck/Barin CTA noted and reviewed by me with normal examination LDA 53 therefore therefore will not start any statin Continue baby aspirin per neurology Limited 2-D echo pending PT to treat and eval Altered mental status change Secondary to IV drug use Now resolved IV drug use patient extensively counseled against Hypokalemia Give potassium 60 mEq 1 now History of PE Resume Xarelto DVT prophylaxis: Xarelto Code Status Full code Discussed Condition With Patient Physician Certification 2 Midnight Certification Type: Admission for Inpatient Services Order for Inpatient Services The services are ordered in accordance with Medicare regulations or non- Medicare payer requirements, as applicable. In the case of services not specified as inpatient-only, they are appropriately provided as inpatient services in accordance with the 2-midnight benchmark. Estimated LOS (days): 2 days is the estimated time the patient will need to remain in the hospital, assuming treatment plan goals are met and no additional complications. Post-Hospital Plan: Not yet determined Bacilio Briggs MD Jun 06, 2017 13:12
[2017-06-06] MEDS: POTASSIUM CHLORIDE 20 MEQ CONTROLLED RELEASE TAB PO ONE ×2 (14:00→14:08)
[2017-06-06] MEDS ORDERED: POTASSIUM CHLORIDE 10 MEQ CONTROLLED RELEASE TAB PO ONE (14:15)
--- NOTE | 2017-06-06 15:34 | ECHRPT ---
Indication: CVA/TIA, LV FUNCTION CONCLUSIONS The left ventricular systolic function is normal with an estimated ejection fraction in the range of 60-65%. Left ventricular diastolic function parameters are normal. Trace mitral valve regurgitation. There is trace tricuspid valve regurgitation. BP: 93 / 54 HR: 56 Rhythm: Sinus MEASUREMENTS (Male / Female) Normal Values Technical Quality:Fair 2D ECHO LV Diastolic Diameter PLAX 4.6 cm 4.2 - 5.9 / 3.9 - 5.3 cm LV Systolic Diameter PLAX 3.2 cm IVS Diastolic Thickness 0.8 cm 0.6 - 1.0 / 0.6 - 0.9 cm LVPW Diastolic Thickness 0.8 cm 0.6 - 1.0 / 0.6 - 0.9 cm LV Relative Wall Thickness 0.4 RV Internal Dim ED PLAX 2.0 cm LVOT Diameter 1.7 cm Aortic Root Diameter 2.3 cm LA Systolic Diameter LX 2.6 cm 3.0 - 4.0 / 2.7 - 3.8 cm DOPPLER LV E' Lateral Velocity 16.9 cm/s LV E' Septal Velocity 10.5 cm/s TR Peak Velocity 233.0 cm/s TR Peak Gradient 22.0 mmHg Right Atrial Pressure 10.0 mmHg Pulmonary Artery Systolic Pressu 31.7 mmHg Right Ventricular Systolic Press 31.7 mmHg FINDINGS LEFT VENTRICLE Normal left ventricular size. Wall thickness is normal. The left ventricular systolic function is normal with an estimated ejection fraction in the range of 60-65%. No regional wall motion abnormalities are present. Left ventricular diastolic function parameters are normal. RIGHT VENTRICLE The right ventricular size is normal. The right ventricular systoilc function is normal. LEFT ATRIUM The left atrial size is normal. RIGHT ATRIUM The right atrial size is normal. ATRIAL SEPTUM Normal atrial septal thickness. AORTA The aortic root and proximal ascending aorta are normal in size on limited imaging. MITRAL VALVE Structurally normal mitral valve. Trace mitral valve regurgitation. No mitral valve stenosis. AORTIC VALVE Grossly normal on limited imaging. No aortic valve regurgitation. No aortic valve stenosis. TRICUSPID VALVE Structurally normal tricuspid valve. There is trace tricuspid valve regurgitation. No tricuspid valve stenosis. PULMONARY VALVE The pulmonary valve is not well visualized. Hermelindo Mas DO (Electronically Signed) Final Date:06 June 2017 15:33
[2017-06-06] MEDS ORDERED: PRAVASTATIN SOD 40 MG TAB PO SCH (21:00)
[2017-06-07 00:28] VITALS: BP 100/59; PULSE 84; RESP 16; TEMP 98; O2SAT 97
[2017-06-07 05:44] VITALS: BP 102/54; PULSE 57; RESP 16; TEMP 98.9; O2SAT 94
[2017-06-07 06:32] LABS: CALCIUM 8.5 MG/DL (8.5-10.1)
[2017-06-07 06:33] LABS: BICARBONATE 26.2 MEQ/L (21.0-32.0)
[2017-06-07 06:36] LABS: CREATININE 0.57 MG/DL (0.50-1.00)
[2017-06-07 08:00] VITALS: BP 84/54; PULSE 70; RESP 16; TEMP 96.5; O2SAT 92
[2017-06-07 08:26] VITALS: O2SAT 93
[2017-06-07] MEDS: SODIUM CHLORIDE 0.9% FLUSH 10 ML FLUSH IV FLUSH SCH (08:27)
[2017-06-07] MEDS: ASPIRIN 81 MG CHEW TAB PO SCH (08:27)
[2017-06-07] MEDS ORDERED: RIVAROXABAN 20 MG TAB PO SCH (09:00)
--- NOTE | 2017-06-07 10:13 | HHI.PR ---
Subjective Remarks Follow-up LEFT-sided weakness 06/07/17-patient seen and examined, reports significant improvement of weakness to left side. No acute event overnight. patient reported up and ambulated without any difficulty. Objective Vitals Vital Signs Date Time Temp Pulse Resp B/P (MAP) Pulse Ox O2 Delivery O2 Flow Rate FiO2 06/07/17 08:26 93 21 06/07/17 08:00 96.5 70 16 84/54 (64) 92 06/07/17 05:44 98.9 57 16 102/54 (70) 94 06/07/17 00:28 98.0 84 16 100/59 (73) 97 06/06/17 23:35 96 21 06/06/17 21:06 97.8 78 18 104/60 (75) 98 06/06/17 20:00 72 06/06/17 16:10 96 21 06/06/17 15:25 97.4 69 20 104/55 (71) 95 06/06/17 15:01 72 06/06/17 11:50 97.5 72 20 95/53 (67) 96 I/O 06/06/17 06/06/17 06/06/17 06/07/17 06/07/17 06/07/17 07:00 15:00 23:00 07:00 15:00 23:00 Intake Total 230 ml 802 ml Balance 230 ml 802 ml Intake Oral 802 ml IV Total 230 ml # Voids 2 2 3 # Bowel Movements 0 1 1 Result Diagram: 06/05/17203406/07/17 0513 Imaging Last Impressions Neck CTA 06/05/172032 Signed Impressions: Service Date/Time: Monday, June 05, 2017 21:19 - CONCLUSION: Normal CTA of the neck. Kenton Jc MD Head CTA 06/05/172032 Signed Impressions: Service Date/Time: Monday, June 05, 2017 21:19 - CONCLUSION: Intracranial arteries are normal. Kenton Jc MD Head CT 06/05/17 0000 Signed Impressions: Service Date/Time: Monday, June 05, 2017 20:38 - CONCLUSION: Normal noncontrast head CT. CTA to follow. Kenton Jc MD Brain MRI 06/05/17 0000 Signed Impressions: Service Date/Time: Monday, June 05, 2017 22:56 - CONCLUSION: Normal examination. Kenton Diallo MD Objective Remarks GENERAL: NAD SKIN: Warm and dry. HEAD: Normocephalic. EYES: No scleral icterus. No injection or drainage. NECK: Supple, trachea midline. No JVD or lymphadenopathy. CARDIOVASCULAR: Regular rate and rhythm without murmurs, gallops, or rubs. RESPIRATORY: Breath sounds equal bilaterally. No accessory muscle use. GASTROINTESTINAL: Abdomen soft, non-tender, nondistended. MUSCULOSKELETAL: No cyanosis, or edema. BACK: Nontender without obvious deformity. No CVA tenderness. A/P Problem List: (1) Acute left-sided muscle weakness ICD Code: M62.81 - Muscle weakness (generalized) (2) History of pulmonary embolus (PE) ICD Code: Z86.711 - Personal history of pulmonary embolism (3) IVDU (intravenous drug user) ICD Code: F19.90 - Other psychoactive substance use, unspecified, uncomplicated Assessment and Plan 21-year-old female with Left-sided weakness-now improved Initial stroke alert called in a month however TPA was contraindicated at a time due to patient being currently on Xarelto for PE Head CT dated and review by me without any intracranial abnormality Brain MRI noted and review by me with normal examination Neck/Barin CTA noted and reviewed by me with normal examination LDA 53 therefore therefore will not start any statin Continue baby aspirin per neurology Limited 2-D echo with normal EF PT to treat and eval Altered mental status change Secondary to IV drug use Now resolved IV drug use patient extensively counseled against Hypokalemia s/p potassium 60 mEq 1 now History of PE continue Xarelto DVT prophylaxis: Xarelto Discharge Planning Discharge patient to home Condition on discharge: Improved Regular Diet as tolerated Ad Joy activity Rx written:see EMR Follow-up with primary care physician in 1 week Neurology Bacilio Cadet MD Jun 07, 2017 10:13
[2017-06-07 16:19] LABS: HEMOGLOBIN A1C 5.2 % (4.3-6.0)
== END 2017-06-07 11:56 | disposition home or self-care (01) | DRG 556 ==
LOC: PHED 20:01 → PHEDA 22:18 → PH3A 23:17
PROVIDERS: ADMIT Hospitalist; ATTEND Hospitalist
DX: M62.81 Muscle weakness (generalized) (principal); F32.9 Major depressive disorder, single episode, unspecified; E87.6 Hypokalemia; F12.90 Cannabis use, unspecified, uncomplicated; F14.129 Cocaine abuse with intoxication, unspecified; F15.129 Other stimulant abuse with intoxication, unspecified; F17.210 Nicotine dependence, cigarettes, uncomplicated; F41.9 Anxiety disorder, unspecified; Z79.01 Long term (current) use of anticoagulants; Z86.711 Personal history of pulmonary embolism; Z86.718 Personal history of other venous thrombosis and embolism
CPT/HCPCS: 70450; 70496; 70498; 70551; 80048; 80061; 80307; 81001; 82550; 82948; 83036; 84484; 84702; 85025; 85384; 85610; 85652; 85730; 86850; 86900; 86901; 93005; 93308; 94664; 96360; J3480; J7030; P9612; Q9967

== ENCOUNTER 2017-07-05 21:07 | Emergency (ER) | payer OTHER ==
[~2017-07-05 21:07] MED LIST changes: -XARE15TA PO
[2017-07-05 21:30] VITALS: BP 127/69; PULSE 85; RESP 12; TEMP 97.9; O2SAT 100
[2017-07-05] MEDS ORDERED: SODIUM CHLORIDE 0.9% FLUSH 10 ML FLUSH IVF PRN (23:30)
[2017-07-06 00:05] VITALS: RESP 18; O2SAT 97
[2017-07-06 00:19] LABS: AUTOMATED NEUTROPHIL # 4.1 TH/MM3 (1.8-7.7); BASOPHIL % 0.4 % (0.0-2.0); EOSINOPHIL # 0.1 TH/MM3 (0-0.4); EOSINOPHIL % 1.8 % (0.0-4.0); HEMATOCRIT 41.6 % (35.0-46.0); HEMOGLOBIN 14.1 GM/DL (11.6-15.3); LYMPH % 38.7 % (9.0-44.0); LYMPHOCYTE # 3.1 TH/MM3 (1.0-4.8); MEAN CELL VOLUME 81.2 FL (80.0-100.0); MEAN CORPUSCULAR HEMOGLOBIN 27.6 PG (27.0-34.0); MONO % 7.9 % (0.0-8.0); MONOCYTE # 0.6 TH/MM3 (0-0.9); NEUT % 51.2 % (16.0-70.0); PLATELET COUNT 290 TH/MM3 (150-450); RED BLOOD COUNT 5.12 MIL/MM3 (4.00-5.30); RED CELL DISTRIBUTION WIDTH 16.9 % (11.6-17.2)
--- NOTE | 2017-07-06 00:20 | PD ---
HPI Chief Complaint: Alcohol/Drug Intoxication Time Seen by Provider: 23:12 Travel History International Travel<30 days: No Contact w/Intl Traveler<30days: No Traveled to known affect area: No History of Present Illness HPI Patient is a 21-year-old female presenting to the emergency department because she "feels bad". Patient states she has pain all over, she reports that she uses IV drugs. She states that she has a runny, stuffy nose, cough. She denies any fevers, chills, abdominal pain, chest pain or shortness of breath. She does report that she has a urinary tract infection however she is not on any medications for this. Patient appears to be intoxicated at this time. H&P is limited due to this. PFSH Past Medical History Hx Anticoagulant Therapy: Yes Asthma: Yes ( CHILD) Blood Disorders: Yes (Blood clots ( DVT and PE)) Anxiety: Yes Depression: Yes Cardiovascular Problems: Yes (R LEG DVT AND PE) Diabetes: No Diminished Hearing: No Deep Vein Thrombosis: Yes Endocrine: Yes Genitourinary: No Musculoskeletal: No Neurologic: No Psychiatric: Yes Respiratory: Yes (PE) Immunizations Current: Yes Thyroid Disease: Yes (hx of hypo while ) ?: Not LMP: CURRENT Menopausal: No : 1 Para: 1 Past Surgical History Oral Surgery: Yes (TONSILS) Tonsillectomy: Yes Social History Alcohol Use: Yes (2 beers daily) Tobacco Use: Yes (1/2 PPD) Substance Use: Yes Allergies-Medications (Allergen,Severity, Reaction): Coded Allergies: No Known Allergies (Verified Allergy, Unknown, 06/05/17) Reported Meds & Prescriptions Reported Meds & Active Scripts Active Xarelto (Rivaroxaban) 20 Mg Tab 20 Mg PO DAILY 30 Days start after 15 mg tab regimen is completed Review of Systems ROS Limitations: Intoxication Except as stated in HPI: all other systems reviewed are Neg General / Constitutional: No: Fever, Chills HENT: No: Headaches Cardiovascular: No: Chest Pain or Discomfort Respiratory: Positive: Cough, No: Shortness of Breath Gastrointestinal: No: Nausea, Abdominal Pain Genitourinary: Positive: Dysuria Musculoskeletal: Positive: Myalgias Physical Exam Narrative GENERAL: Thin, disheveled intoxicated appearing female. Presenting in no acute distress. SKIN: Warm and dry. Crusted lesions to arms, fine macular rash to bilateral arms HEAD: Atraumatic. Normocephalic. EYES: Pupils equal and round. No scleral icterus. No injection or drainage. ENT: No nasal bleeding or discharge. Mucous membranes pink and moist. NECK: Trachea midline. No JVD. CARDIOVASCULAR: Regular rate and rhythm. RESPIRATORY: No accessory muscle use. Clear to auscultation. Breath sounds equal bilaterally. GASTROINTESTINAL: Abdomen soft, non-tender, nondistended. Hepatic and splenic margins not palpable. MUSCULOSKELETAL: Extremities without clubbing, cyanosis, or edema. No obvious deformities. NEUROLOGICAL: Awake and alert. No obvious cranial nerve deficits. Motor grossly within normal limits. Five out of 5 muscle strength in the arms and legs. Normal speech. PSYCHIATRIC: Appropriate mood and affect; insight and judgment impaired. Data Data Last Documented VS Vital Signs Date Time Temp Pulse Resp B/P (MAP) Pulse Ox O2 Delivery O2 Flow Rate FiO2 07/06/17 00:05 18 97 Room Air 07/05/17 21:30 97.9 85 127/69 (88) Orders Orders Complete Blood Count With Diff (07/05/17 21:33) Urinalysis - C+S If Indicated (07/05/17 21:33) Ed Urine Pregnancytest Poc (07/05/17 21:33) Psych Screen (07/05/17 21:33) Drug Screen, Random Urine (07/05/17 21:33) Comprehensive Metabolic Panel (07/05/17 23:24) Influenzae A/B Antigen (07/05/17 23:24) Iv Access Insert/Monitor (07/05/17 23:24) Oximetry (07/05/17 23:24) Sodium Chloride 0.9% Flush (Ns Flush) (07/05/17 23:30) Alcohol (Ethanol) (07/06/17 00:07) Thyroid Stimulating Hormone (07/06/17 00:07) Chest, Pa & Lat (07/06/17 ) Act Partial Throm Time (Ptt) (07/06/17 00:20) Prothrombin Time / Inr (Pt) (07/06/17 00:20) Sodium Chlor 0.9% 1000 Ml Inj (Ns 1000 M (07/06/17 00:30) Urine Culture (07/06/17 00:39) Ceftriaxone Inj (Rocephin Inj) (07/06/17 02:00) Labs Laboratory Tests Test 07/06/17 00:07 07/06/17 00:30 07/06/17 00:39 White Blood Count 8.0 TH/MM3 Red Blood Count 5.12 MIL/MM3 Hemoglobin 14.1 GM/DL Hematocrit 41.6 % Mean Corpuscular Volume 81.2 FL Mean Corpuscular Hemoglobin 27.6 PG Mean Corpuscular Hemoglobin Concent 34.0 % Red Cell Distribution Width 16.9 % Platelet Count 290 TH/MM3 Mean Platelet Volume 7.0 FL Neutrophils (%) (Auto) 51.2 % Lymphocytes (%) (Auto) 38.7 % Monocytes (%) (Auto) 7.9 % Eosinophils (%) (Auto) 1.8 % Basophils (%) (Auto) 0.4 % Neutrophils # (Auto) 4.1 TH/MM3 Lymphocytes # (Auto) 3.1 TH/MM3 Monocytes # (Auto) 0.6 TH/MM3 Eosinophils # (Auto) 0.1 TH/MM3 Basophils # (Auto) 0.0 TH/MM3 CBC Comment DIFF FINAL Differential Comment Blood Urea Nitrogen 13 MG/DL Creatinine 0.68 MG/DL Random Glucose 58 MG/DL Total Protein 8.0 GM/DL Albumin 3.9 GM/DL Calcium Level 8.8 MG/DL Alkaline Phosphatase 113 U/L Aspartate Amino Transf (AST/SGOT) 23 U/L Alanine Aminotransferase (ALT/SGPT) 25 U/L Total Bilirubin 1.0 MG/DL Sodium Level 139 MEQ/L Potassium Level 3.6 MEQ/L Chloride Level 103 MEQ/L Carbon Dioxide Level 27.9 MEQ/L Anion Gap 8 MEQ/L Estimat Glomerular Filtration Rate 107 ML/MIN Thyroid Stimulating Hormone 3rd Gen 0.851 uIU/ML Ethyl Alcohol Level LESS THAN 3 MG/DL Prothrombin Time 10.7 SEC Prothromb Time International Ratio 1.1 RATIO Activated Partial Thromboplast Time 25.7 SEC Urine Color YELLOW Urine Turbidity HAZY Urine pH 5.5 Urine Specific [place] 1.016 Urine Protein TRACE mg/dL Urine Glucose (UA) NEG mg/dL Urine Ketones 10 mg/dL Urine Occult Blood MOD Urine Nitrite NEG Urine Bilirubin NEG Urine Urobilinogen LESS THAN 2.0 MG/DL Urine Leukocyte Esterase LARGE Urine RBC 4 /hpf Urine WBC 21 /hpf Urine Squamous Epithelial Cells 18 /hpf Urine Mucus FEW /lpf Microscopic Urinalysis Comment CULTURE INDICATED Urine Opiates Screen NEG Urine Barbiturates Screen NEG Urine Amphetamines Screen POS Urine Benzodiazepines Screen NEG Urine Cocaine Screen POS Urine Cannabinoids Screen NEG MDM Medical Decision Making Medical Screen Exam Complete: Yes Emergency Medical Condition: Yes Interpretation(s) Laboratory Tests Test 07/06/17 00:07 07/06/17 00:30 07/06/17 00:39 White Blood Count 8.0 TH/MM3 Red Blood Count 5.12 MIL/MM3 Hemoglobin 14.1 GM/DL Hematocrit 41.6 % Mean Corpuscular Volume 81.2 FL Mean Corpuscular Hemoglobin 27.6 PG Mean Corpuscular Hemoglobin Concent 34.0 % Red Cell Distribution Width 16.9 % Platelet Count 290 TH/MM3 Mean Platelet Volume 7.0 FL Neutrophils (%) (Auto) 51.2 % Lymphocytes (%) (Auto) 38.7 % Monocytes (%) (Auto) 7.9 % Eosinophils (%) (Auto) 1.8 % Basophils (%) (Auto) 0.4 % Neutrophils # (Auto) 4.1 TH/MM3 Lymphocytes # (Auto) 3.1 TH/MM3 Monocytes # (Auto) 0.6 TH/MM3 Eosinophils # (Auto) 0.1 TH/MM3 Basophils # (Auto) 0.0 TH/MM3 CBC Comment DIFF FINAL Differential Comment Blood Urea Nitrogen 13 MG/DL Creatinine 0.68 MG/DL Random Glucose 58 MG/DL Total Protein 8.0 GM/DL Albumin 3.9 GM/DL Calcium Level 8.8 MG/DL Alkaline Phosphatase 113 U/L Aspartate Amino Transf (AST/SGOT) 23 U/L Alanine Aminotransferase (ALT/SGPT) 25 U/L Total Bilirubin 1.0 MG/DL Sodium Level 139 MEQ/L Potassium Level 3.6 MEQ/L Chloride Level 103 MEQ/L Carbon Dioxide Level 27.9 MEQ/L Anion Gap 8 MEQ/L Estimat Glomerular Filtration Rate 107 ML/MIN Thyroid Stimulating Hormone 3rd Gen 0.851 uIU/ML Ethyl Alcohol Level LESS THAN 3 MG/DL Prothrombin Time 10.7 SEC Prothromb Time International Ratio 1.1 RATIO Activated Partial Thromboplast Time 25.7 SEC Urine Color YELLOW Urine Turbidity HAZY Urine pH 5.5 Urine Specific [place]iter 1.016 Urine Protein TRACE mg/dL Urine Glucose (UA) NEG mg/dL Urine Ketones 10 mg/dL Urine Occult Blood MOD Urine Nitrite NEG Urine Bilirubin NEG Urine Urobilinogen LESS THAN 2.0 MG/DL Urine Leukocyte Esterase LARGE Urine RBC 4 /hpf Urine WBC 21 /hpf Urine Squamous Epithelial Cells 18 /hpf Urine Mucus FEW /lpf Microscopic Urinalysis Comment CULTURE INDICATED Urine Opiates Screen NEG Urine Barbiturates Screen NEG Urine Amphetamines Screen POS Urine Benzodiazepines Screen NEG Urine Cocaine Screen POS Urine Cannabinoids Screen NEG Vital Signs Date Time Temp Pulse Resp B/P (MAP) Pulse Ox O2 Delivery O2 Flow Rate FiO2 07/06/17 00:05 18 97 Room Air 07/05/17 21:30 97.9 85 12 127/69 (88) 100 Vital Signs Date Time Temp Pulse Resp B/P (MAP) Pulse Ox O2 Delivery O2 Flow Rate FiO2 07/06/17 00:05 18 97 Room Air 07/05/17 21:30 97.9 85 12 127/69 (88) 100 Differential Diagnosis Substance abuse versus UTI versus influenza versus metabolic abnormality versus other Narrative Course Patient is a 21-year-old presenting with general malaise. She appears intoxicated. She has a history of DVT and pulmonary embolisms, she is supposed to be on Xarelto but has been off of it for a month secondary to cost. Patient denies any shortness of breath or chest pain. Her vital signs are stable, she is well oxygenated on room air. Labs and imaging ordered and pending. A psych screen was placed while patient was in triage, patient denies any suicidality, she denies any homicidal ideations or hallucinations. Patient was screened by psychiatric nurse, she also reported to him that she was not suicidal. CBC with no acute findings, chest x-ray shows no acute disease, influenza is negative. Chemistries unremarkable, coags are normal, urine drug screen is positive for amphetamines and cocaine Urinalysis is consistent with a urinary tract infection, patient was given Rocephin. Discussed with my attending physician patient's need for continued anticoagulation. A prescription savings card for Eliquis was obtained from case management. A prescription will be written for a one-month supply. A mandatory referral to hematology and case management will be made. Patient will be discharged home, she is encouraged to follow-up with Matthew Anhtony. She is encouraged to return to emergency department immediately for any new or worsening symptoms. Patient stable for discharge. Diagnosis Primary Impression: Inadequate anticoagulation Additional Impressions: UTI (urinary tract infection) Qualified Codes: N39.0 - Urinary tract infection, site not specified; R31.9 - Hematuria, unspecified Polysubstance abuse History of pulmonary embolism History of DVT (deep vein thrombosis) Referrals: [facility] Patient Instructions: Apixaban (By mouth), General Instructions, Urinary Tract Infection in Women (ED) Additional Instructions: Follow-up with hematology, mandatory referral has been made for you Follow-up at the [facility] clinic Follow-up with Matthew Anthony Return to emergency department for any new or worsening symptoms Take Eliquis card and prescription to the pharmacy and your received 1 month for free. Med/Other Pt SpecificInfo: Prescription(s) given Scripts Cephalexin (Keflex) 500 Mg Cap 500 MG PO Q12H for Infection for 7 Days, #14 CAP 0 Refills Prov: Xochitl Camarena 07/06/17 Apixaban (Eliquis) 5 Mg Tab 10 MG PO BID for Blood Clot Prevention, #14 TAB 0 Refills Prov: Xochitl Cmaarena 07/06/17 Apixaban (Eliquis) 5 Mg Tab 5 MG PO BID for Blood Clot Prevention, #60 TAB 0 Refills Prov: Xochitl Camarena 07/06/17 Disposition: 01 DISCHARGE HOME Condition: Stable Xochitl Camarena Jul 06, 2017 00:20
[2017-07-06] MEDS ORDERED: SODIUM CHLOR 0.9% 1000 ML INJ 1,000 ML IV ONE (00:30)
[2017-07-06 00:44] LABS: ALBUMIN 3.9 GM/DL (3.4-5.0); ALT (GPT) 25 U/L (10-53); AST (GOT) 23 U/L (15-37); BICARBONATE 27.9 MEQ/L (21.0-32.0); BLOOD UREA NITROGEN 13 MG/DL (7-18); CALCIUM 8.8 MG/DL (8.5-10.1); CHLORIDE 103 MEQ/L (98-107); CREATININE 0.68 MG/DL (0.50-1.00); GLOMERULAR FILTRATION RATE 107 ML/MIN (>89); GLUCOSE,RANDOM 58 MG/DL (74-106); SODIUM (NA) 139 MEQ/L (136-145)
[2017-07-06 00:53] LABS: ALKALINE PHOSPHATASE 113 U/L (45-117)
--- NOTE | 2017-07-06 01:09 | RADRPT ---
EXAM DATE/TIME: 07/06/2017 00:35 [facility] COMPARISON: CHEST SINGLE AP, June 02, 2017, 23:47. INDICATIONS : Short of breath. MEDICAL HISTORY : [place]. SURGICAL HISTORY : None. ENCOUNTER: Initial ACUITY: 1 day PAIN SCORE: 1/10 LOCATION: Bilateral chest FINDINGS: PA and lateral views of the chest demonstrate the lungs to be symmetrically aerated without evidence of mass, infiltrate or effusion. The cardiomediastinal contours are unremarkable. Osseous structure s are intact. CONCLUSION: 1. No acute cardiopulmonary disease. Mike Knox MD on July 06, 2017 at 1:08 Board Certified Radiologist. This report was verified electronically.
[2017-07-06 01:15] LABS: BILIRUBIN, URINE NEG (NEG); BLOOD, URINE MOD (NEG); GLUCOSE,URINE NEG (NEG); KETONE, URINE 10 mg/dL (NEG); MUCUS URINE FEW /lpf (OCC); NITRITE,URINE NEG (NEG); PH, URINE 5.5 (5.0-8.5); SQUAMOUS EPITHELIAL CELL URINE 18 /hpf (0-5); URINE COLOR YELLOW (YELLW/STRAW); URINE LEUKOCYTE ESTERASE LARGE (NEG)
[2017-07-06 01:22] LABS: INTERNATIONAL NORMALIZED RATIO 1.1 RATIO; PROTHROMBIN TIME - PATIENT 10.7 SEC (9.8-11.6)
[2017-07-06] MEDS ORDERED: cefTRIAXone INJ 1,000 MG in SODIUM CHLORIDE 0.9% INJ 100 ML IV ONE (02:00)
[2017-07-06] MEDS ORDERED: CEPH-460 PO (02:55)
[2017-07-06] MEDS ORDERED: APIX5TAB PO (02:55)
[2017-07-06] MEDS ORDERED: APIXABAN 5 MG TABLET PO ONE (03:00)
== END 2017-07-06 07:08 | disposition home or self-care (01) ==
LOC: NEPD 21:07
DX: N39.0 Urinary tract infection, site not specified (principal); R31.9 Hematuria, unspecified; F19.10 Other psychoactive substance abuse, uncomplicated; F17.200 Nicotine dependence, unspecified, uncomplicated; M79.1 Myalgia; Z79.01 Long term (current) use of anticoagulants; Z86.711 Personal history of pulmonary embolism; Z86.718 Personal history of other venous thrombosis and embolism
CPT/HCPCS: 71046; 80053; 80307; 81001; 84443; 84703; 85025; 85610; 85730; 87086; 87804; 96361; 96365; 96366; 99284; J0696; J7030

== ENCOUNTER 2017-07-09 21:07 | Observation (INO) | payer SELFPAY ==
[~2017-07-09] VITALS: Ht 162.6 cm; Wt 59.4 kg
[~2017-07-09 21:07] MED LIST changes: +APIX5TAB PO; +CEPH-460 PO
[2017-07-09 21:14] VITALS: BP 93/52; PULSE 123; RESP 14; TEMP 97.3; O2SAT 96
[2017-07-09] MEDS ORDERED: SODIUM CHLOR 0.9% 1000 ML INJ 1,000 ML IV SCH (21:37)
--- NOTE | 2017-07-09 21:43 | PD ---
HPI Time Seen by Provider: 21:22 PFSH Past Medical History Hx Anticoagulant Therapy: Yes Asthma: Yes ( CHILD) Blood Disorders: Yes (Blood clots ( DVT and PE)) Anxiety: Yes Depression: Yes Cardiovascular Problems: Yes (R LEG DVT AND PE) Diabetes: No Diminished Hearing: No Deep Vein Thrombosis: Yes Endocrine: Yes Genitourinary: No Headaches: Yes Musculoskeletal: No Neurologic: No Psychiatric: Yes Respiratory: Yes (PE) Immunizations Current: Yes Thyroid Disease: Yes (hx of hypo while ) Menopausal: No : 1 Para: 1 Past Surgical History Oral Surgery: Yes (TONSILS) Tonsillectomy: Yes Other Surgery: Yes Social History Alcohol Use: Yes (2 beers daily) Tobacco Use: Yes (1/2 PPD) Substance Use: Yes Allergies-Medications (Allergen,Severity, Reaction): Coded Allergies: No Known Allergies (Verified Allergy, Unknown, 06/05/17) Reported Meds & Prescriptions Reported Meds & Active Scripts Active Data Data Last Documented VS Vital Signs Date Time Temp Pulse Resp B/P (MAP) Pulse Ox O2 Delivery O2 Flow Rate FiO2 07/10/17 00:45 82 20 102/53 (69) 97 07/09/17 23:45 98.2 Orders Orders Urinalysis - C+S If Indicated (07/09/17 21:20) Ed Urine Pregnancytest Poc (07/09/17 21:20) Basic Metabolic Panel (Bmp) (07/09/17 21:37) Complete Blood Count With Diff (07/09/17 21:37) Iv Access Insert/Monitor (07/09/17 21:37) Ecg Monitoring (07/09/17 21:37) Oximetry (07/09/17 21:37) Ondansetron Inj (Zofran Inj) (07/09/17 21:45) Sodium Chlor 0.9% 1000 Ml Inj (Ns 1000 M (07/09/17 21:37) Sodium Chloride 0.9% Flush (Ns Flush) (07/09/17 21:45) Sodium Chlor 0.9% 1000 Ml Inj (Ns 1000 M (07/09/17 22:45) Beta Hcg (Quant/Titer) (07/09/17 22:43) Sodium Chlor 0.9% 1000 Ml Inj (Ns 1000 M (07/09/17 22:45) Chest, Single Ap (07/09/17 ) Lactic Acid (07/09/17 22:58) Blood Culture (07/09/17 22:58) Vancomycin Inj (Vancomycin Inj) (07/09/17 23:45) Piperacil-Tazo 4.5 Gm Premix (Zosyn 4.5 (07/09/17 23:45) Sodium Chlor 0.9% 1000 Ml Inj (Ns 1000 M (07/09/17 23:45) Ondansetron Inj (Zofran Inj) (07/09/17 23:45) Influenzae A/B Antigen (07/10/17 00:17) Admit Order (Ed Use Only) (07/10/17 02:16) Labs Laboratory Tests Test 07/09/17 22:20 07/09/17 23:45 07/10/17 01:05 White Blood Count 23.0 TH/MM3 Red Blood Count 6.65 MIL/MM3 Hemoglobin 17.6 GM/DL Hematocrit 54.9 % Mean Corpuscular Volume 82.6 FL Mean Corpuscular Hemoglobin 26.5 PG Mean Corpuscular Hemoglobin Concent 32.1 % Red Cell Distribution Width 15.9 % Platelet Count 209 TH/MM3 Mean Platelet Volume 8.1 FL Neutrophils (%) (Auto) 90.2 % Lymphocytes (%) (Auto) 4.7 % Monocytes (%) (Auto) 1.5 % Eosinophils (%) (Auto) 0.3 % Basophils (%) (Auto) 3.3 % Neutrophils # (Auto) 20.7 TH/MM3 Lymphocytes # (Auto) 1.1 TH/MM3 Monocytes # (Auto) 0.3 TH/MM3 Eosinophils # (Auto) 0.1 TH/MM3 Basophils # (Auto) 0.8 TH/MM3 CBC Comment AUTO DIFF Differential Comment AUTO DIFF CONFIRMED Platelet Morphology Comment CLUMPED Blood Urea Nitrogen 16 MG/DL Creatinine 0.85 MG/DL Random Glucose 108 MG/DL Calcium Level 9.4 MG/DL Sodium Level 137 MEQ/L Potassium Level 3.7 MEQ/L Chloride Level 102 MEQ/L Carbon Dioxide Level 24.8 MEQ/L Anion Gap 10 MEQ/L Estimat Glomerular Filtration Rate 83 ML/MIN Lactic Acid Level 1.3 mmol/L Human Chorionic Gonadotropin, Quant LESS THAN 1 MIU/ML Urine Color YELLOW Urine Turbidity SL CLOUDY Urine pH 5.0 Urine Specific [place] 1.025 Urine Protein NEG mg/dL Urine Glucose (UA) NEG mg/dL Urine Ketones NEG mg/dL Urine Occult Blood NEG Urine Nitrite NEG Urine Bilirubin NEG Urine Urobilinogen 0.2 MG/DL Urine Leukocyte Esterase SMALL Urine RBC 0-2 /hpf Urine WBC 6-8 /hpf Urine Squamous Epithelial Cells > 8 /hpf Urine Bacteria OCC /hpf Microscopic Urinalysis Comment CULT NOT INDICATED Issa Goodrich MD Jul 09, 2017 21:42
[2017-07-09] MEDS ORDERED: ONDANSETRON HCL 4 MG/2 ML VIAL IVP ONE (21:45)
[2017-07-09] MEDS ORDERED: SODIUM CHLORIDE 0.9% FLUSH 10 ML FLUSH IV FLUSH PRN (21:45)
[2017-07-09 21:50] VITALS: BP 87/58; PULSE 96; RESP 18
[2017-07-09 22:00] VITALS: BP 81/52; PULSE 98; RESP 18; O2SAT 97
[2017-07-09 22:38] LABS: AUTOMATED NEUTROPHIL # 20.7 TH/MM3 (1.8-7.7); BASOPHIL # 0.8 TH/MM3 (0-0.2); BASOPHIL % 3.3 % (0.0-2.0); EOSINOPHIL # 0.1 TH/MM3 (0-0.4); EOSINOPHIL % 0.3 % (0.0-4.0); HEMATOCRIT 54.9 % (35.0-46.0); HEMOGLOBIN 17.6 GM/DL (11.6-15.3); LYMPH % 4.7 % (9.0-44.0); LYMPHOCYTE # 1.1 TH/MM3 (1.0-4.8); MEAN CELL VOLUME 82.6 FL (80.0-100.0); MEAN CORPUSCULAR HEMOGLOBIN 26.5 PG (27.0-34.0); MEAN CORPUSCULAR HGB CONC 32.1 % (32.0-36.0); MEAN PLATELET VOLUME 8.1 FL (7.0-11.0); MONO % 1.5 % (0.0-8.0); MONOCYTE # 0.3 TH/MM3 (0-0.9); NEUT % 90.2 % (16.0-70.0); PLATELET COUNT 209 TH/MM3 (150-450); RED BLOOD COUNT 6.65 MIL/MM3 (4.00-5.30); RED CELL DISTRIBUTION WIDTH 15.9 % (11.6-17.2)
[2017-07-09 22:40] VITALS: BP 90/62; PULSE 87; RESP 18; O2SAT 99
[2017-07-09 22:41] LABS: CALCIUM 9.4 MG/DL (8.5-10.1)
[2017-07-09 22:42] LABS: BICARBONATE 24.8 MEQ/L (21.0-32.0)
[2017-07-09 22:45] VITALS: BP 93/56; PULSE 84; RESP 20; O2SAT 97
[2017-07-09 22:45] LABS: CREATININE 0.85 MG/DL (0.50-1.00)
[2017-07-09] MEDS ORDERED: SODIUM CHLOR 0.9% 1000 ML INJ 1,000 ML IV ONE ×3 (22:45→23:45)
--- NOTE | 2017-07-09 22:48 | PD ---
HPI Chief Complaint: GI Complaint Time Seen by Provider: 21:22 Travel History International Travel<30 days: No Contact w/Intl Traveler<30days: No Traveled to known affect area: No History of Present Illness HPI Patient is a 21-year-old female history of IV drug abuse presents emergency department with nausea vomiting diarrhea for the past 2 days. Patient states she last used IV amphetamine 1 week ago. Patient denies any abdominal pain, she states she just does not feel well all over. Denies any fever denies any chest pain or shortness of breath. Denies any blood in the emesis or blood in the stool. She denies any opiate IV use. He states symptoms are severe, is not able to tolerate p.o. fluids. PFSH Past Medical History Hx Anticoagulant Therapy: Yes Asthma: Yes ( CHILD) Blood Disorders: Yes (BLOOD CLOTS, DVT,PULMONARY EMBOLI) Anxiety: Yes Depression: Yes Cardiovascular Problems: Yes Diabetes: No Diminished Hearing: No Deep Vein Thrombosis: Yes Endocrine: Yes Genitourinary: No Headaches: Yes Musculoskeletal: No Neurologic: No Psychiatric: Yes Respiratory: Yes Immunizations Current: Yes Thyroid Disease: Yes (hx of hypo while ) ?: Unknown LMP: 07/2016 Menopausal: No : 1 Para: 1 Past Surgical History Oral Surgery: Yes Tonsillectomy: Yes Other Surgery: Yes Social History Alcohol Use: Yes (QUIT 3 WKS AGO) Tobacco Use: Yes (QUIT 1 WEEK AGO) Substance Use: Yes Allergies-Medications (Allergen,Severity, Reaction): Coded Allergies: No Known Allergies (Verified Allergy, Unknown, 06/05/17) Reported Meds & Prescriptions Reported Meds & Active Scripts Active Review of Systems Except as stated in HPI: all other systems reviewed are Neg Physical Exam Narrative GENERAL: Well-developed thin female in no obvious distress. SKIN: Focused skin assessment warm/dry. HEAD: Atraumatic. Normocephalic. EYES: Pupils equal and round. No scleral icterus. No injection or drainage. ENT: No nasal bleeding or discharge. Mucous membranes pink and moist. NECK: Trachea midline. No JVD. CARDIOVASCULAR: Regular rate and rhythm. No murmur appreciated. RESPIRATORY: No accessory muscle use. Clear to auscultation. Breath sounds equal bilaterally. GASTROINTESTINAL: Abdomen soft, non-tender, nondistended. Hepatic and splenic margins not palpable. MUSCULOSKELETAL: No obvious deformities. No clubbing. No cyanosis. No edema. NEUROLOGICAL: Awake and alert. No obvious cranial nerve deficits. Motor grossly within normal limits. Normal speech. PSYCHIATRIC: Appropriate mood and affect; insight and judgment normal. Data Data Last Documented VS Vital Signs Date Time Temp Pulse Resp B/P (MAP) Pulse Ox O2 Delivery O2 Flow Rate FiO2 07/10/17 00:45 82 20 102/53 (69) 97 07/09/17 23:45 98.2 Orders Orders Urinalysis - C+S If Indicated (07/09/17 21:20) Ed Urine Pregnancytest Poc (07/09/17 21:20) Basic Metabolic Panel (Bmp) (07/09/17 21:37) Complete Blood Count With Diff (07/09/17 21:37) Iv Access Insert/Monitor (07/09/17 21:37) Ecg Monitoring (07/09/17 21:37) Oximetry (07/09/17 21:37) Ondansetron Inj (Zofran Inj) (07/09/17 21:45) Sodium Chlor 0.9% 1000 Ml Inj (Ns 1000 M (07/09/17 21:37) Sodium Chloride 0.9% Flush (Ns Flush) (07/09/17 21:45) Sodium Chlor 0.9% 1000 Ml Inj (Ns 1000 M (07/09/17 22:45) Beta Hcg (Quant/Titer) (07/09/17 22:43) Sodium Chlor 0.9% 1000 Ml Inj (Ns 1000 M (07/09/17 22:45) Chest, Single Ap (07/09/17 ) Lactic Acid (07/09/17 22:58) Blood Culture (07/09/17 22:58) Vancomycin Inj (Vancomycin Inj) (07/09/17 23:45) Piperacil-Tazo 4.5 Gm Premix (Zosyn 4.5 (07/09/17 23:45) Sodium Chlor 0.9% 1000 Ml Inj (Ns 1000 M (07/09/17 23:45) Ondansetron Inj (Zofran Inj) (07/09/17 23:45) Influenzae A/B Antigen (07/10/17 00:17) Admit Order (Ed Use Only) (07/10/17 02:16) Labs Laboratory Tests Test 07/09/17 22:20 07/09/17 23:45 07/10/17 01:05 White Blood Count 23.0 TH/MM3 Red Blood Count 6.65 MIL/MM3 Hemoglobin 17.6 GM/DL Hematocrit 54.9 % Mean Corpuscular Volume 82.6 FL Mean Corpuscular Hemoglobin 26.5 PG Mean Corpuscular Hemoglobin Concent 32.1 % Red Cell Distribution Width 15.9 % Platelet Count 209 TH/MM3 Mean Platelet Volume 8.1 FL Neutrophils (%) (Auto) 90.2 % Lymphocytes (%) (Auto) 4.7 % Monocytes (%) (Auto) 1.5 % Eosinophils (%) (Auto) 0.3 % Basophils (%) (Auto) 3.3 % Neutrophils # (Auto) 20.7 TH/MM3 Lymphocytes # (Auto) 1.1 TH/MM3 Monocytes # (Auto) 0.3 TH/MM3 Eosinophils # (Auto) 0.1 TH/MM3 Basophils # (Auto) 0.8 TH/MM3 CBC Comment AUTO DIFF Differential Comment AUTO DIFF CONFIRMED Platelet Morphology Comment CLUMPED Blood Urea Nitrogen 16 MG/DL Creatinine 0.85 MG/DL Random Glucose 108 MG/DL Calcium Level 9.4 MG/DL Sodium Level 137 MEQ/L Potassium Level 3.7 MEQ/L Chloride Level 102 MEQ/L Carbon Dioxide Level 24.8 MEQ/L Anion Gap 10 MEQ/L Estimat Glomerular Filtration Rate 83 ML/MIN Lactic Acid Level 1.3 mmol/L Human Chorionic Gonadotropin, Quant LESS THAN 1 MIU/ML Urine Color YELLOW Urine Turbidity SL CLOUDY Urine pH 5.0 Urine Specific [place] 1.025 Urine Protein NEG mg/dL Urine Glucose (UA) NEG mg/dL Urine Ketones NEG mg/dL Urine Occult Blood NEG Urine Nitrite NEG Urine Bilirubin NEG Urine Urobilinogen 0.2 MG/DL Urine Leukocyte Esterase SMALL Urine RBC 0-2 /hpf Urine WBC 6-8 /hpf Urine Squamous Epithelial Cells > 8 /hpf Urine Bacteria OCC /hpf Microscopic Urinalysis Comment CULT NOT INDICATED MDM Medical Decision Making Medical Screen Exam Complete: Yes Emergency Medical Condition: Yes Differential Diagnosis Acute withdrawal syndrome, dehydration, acute kidney injury, Narrative Course Patient room to the emergency department, IV access obtained, 2 L normal saline has been ordered as well as a to [place], patient will need to be reassessed after these interventions. She has not had any fever while in the emergency department during my shift discussed with Dr. Olivo to reassess the patient and disposition appropriately. Issa Goodrich MD Jul 09, 2017 22:48
--- NOTE | 2017-07-09 23:12 | RADRPT ---
EXAM DATE/TIME: 07/09/2017 22:58 [facility] COMPARISON: CHEST SINGLE AP, June 02, 2017, 23:47. INDICATIONS : Cough. MEDICAL HISTORY : [place] SURGICAL HISTORY : None. ENCOUNTER: Initial ACUITY: 1 day PAIN SCORE: 0/10 LOCATION: Bilateral chest FINDINGS: A single view of the chest demonstrates the lungs to be symmetrically aerated without evidence of mas s, infiltrate or effusion. The cardiomediastinal contours are unremarkable. Osseous structures are intact. CONCLUSION: The lungs are clear. Mars Ontiveros MD on July 09, 2017 at 23:11 Board Certified Radiologist. This report was verified electronically.
[2017-07-09 23:45] VITALS: BP 102/65; PULSE 88; RESP 20; TEMP 98.2; O2SAT 98
[2017-07-09] MEDS ORDERED: ONDANSETRON HCL 4 MG/2 ML VIAL IV PUSH ONE (23:45)
[2017-07-09] MEDS ORDERED: VANCOMYCIN INJ 1,000 MG in SODIUM CHLOR 0.9% 250 ML INJ 250 ML IV ONE (23:45)
[2017-07-09] MEDS ORDERED: PIPERACIL-TAZO 4.5 GM PREMIX 100 ML IV ONE (23:45)
[2017-07-10 00:45] VITALS: BP 102/53; PULSE 82; RESP 20; O2SAT 97
[2017-07-10 01:14] LABS: BILIRUBIN, URINE NEG (NEG); BLOOD, URINE NEG (NEG); GLUCOSE,URINE NEG (NEG); KETONE, URINE NEG (NEG); NITRITE,URINE NEG (NEG); URINE COLOR YELLOW (YELLW/STRAW); URINE LEUKOCYTE ESTERASE SMALL (NEG)
[2017-07-10 01:23] LABS: BACTERIA, URINE OCC /hpf; RBC, URINE 0-2 /hpf (0-3); SQUAMOUS EPITHELIAL CELL URINE > 8 /hpf (0-5)
--- NOTE | 2017-07-10 02:08 | PD ---
Physical Exam Narrative Patient sent to me at shift change, pending response to IV fluids. Patient laboratory examinations had resulted with markedly elevated white blood cell count 23,000 with a left shift. Patient otherwise has negative chest x-ray negative urine. Patient has no documented fever. As per report, patient had presented tachycardic with hypotension in triage. Patient remains feeling ill, has sallow complexion, no diaphoresis no rashes. Patient has no seemingly focal area of infection, denies having headache, visual changes, stiff neck, chest pain, cough, ear ache or sore throat, denies dysuria urgency frequency, or abdominal pain. Patient does note significant generalized malaise. Patient' s laboratory examinations augmented with lactic acid which was normal at 1.3. Secondary to patient's history of IV drug abuse and shaking chills with concomitant 23,000 with a white blood cell count, patient was pancultured given broad-spectrum antibiotics IV. Patient observed during fluid resuscitation and IV antibiotic., Patient has marginally improved symptoms, however patient's blood pressure has responded well, patient is no longer tachycardic with a normal blood pressure. Care plan developed patient to be admitted for observation, IV antibiotics, and improvement in symptoms. Blood cultures and urine culture pending. Data Data Last Documented VS Vital Signs Date Time Temp Pulse Resp B/P (MAP) Pulse Ox O2 Delivery O2 Flow Rate FiO2 07/10/17 00:45 82 20 102/53 (69) 97 07/09/17 23:45 98.2 Orders Orders Urinalysis - C+S If Indicated (07/09/17 21:20) Ed Urine Pregnancytest Poc (07/09/17 21:20) Basic Metabolic Panel (Bmp) (07/09/17 21:37) Complete Blood Count With Diff (07/09/17 21:37) Iv Access Insert/Monitor (07/09/17 21:37) Ecg Monitoring (07/09/17 21:37) Oximetry (07/09/17 21:37) Ondansetron Inj (Zofran Inj) (07/09/17 21:45) Sodium Chlor 0.9% 1000 Ml Inj (Ns 1000 M (07/09/17 21:37) Sodium Chloride 0.9% Flush (Ns Flush) (07/09/17 21:45) Sodium Chlor 0.9% 1000 Ml Inj (Ns 1000 M (07/09/17 22:45) Beta Hcg (Quant/Titer) (07/09/17 22:43) Sodium Chlor 0.9% 1000 Ml Inj (Ns 1000 M (07/09/17 22:45) Chest, Single Ap (07/09/17 ) Lactic Acid (07/09/17 22:58) Blood Culture (07/09/17 22:58) Vancomycin Inj (Vancomycin Inj) (07/09/17 23:45) Piperacil-Tazo 4.5 Gm Premix (Zosyn 4.5 (07/09/17 23:45) Sodium Chlor 0.9% 1000 Ml Inj (Ns 1000 M (07/09/17 23:45) Ondansetron Inj (Zofran Inj) (07/09/17 23:45) Influenzae A/B Antigen (07/10/17 00:17) Admit Order (Ed Use Only) (07/10/17 02:16) Labs Laboratory Tests Test 07/09/17 22:20 07/09/17 23:45 07/10/17 01:05 White Blood Count 23.0 TH/MM3 Red Blood Count 6.65 MIL/MM3 Hemoglobin 17.6 GM/DL Hematocrit 54.9 % Mean Corpuscular Volume 82.6 FL Mean Corpuscular Hemoglobin 26.5 PG Mean Corpuscular Hemoglobin Concent 32.1 % Red Cell Distribution Width 15.9 % Platelet Count 209 TH/MM3 Mean Platelet Volume 8.1 FL Neutrophils (%) (Auto) 90.2 % Lymphocytes (%) (Auto) 4.7 % Monocytes (%) (Auto) 1.5 % Eosinophils (%) (Auto) 0.3 % Basophils (%) (Auto) 3.3 % Neutrophils # (Auto) 20.7 TH/MM3 Lymphocytes # (Auto) 1.1 TH/MM3 Monocytes # (Auto) 0.3 TH/MM3 Eosinophils # (Auto) 0.1 TH/MM3 Basophils # (Auto) 0.8 TH/MM3 CBC Comment AUTO DIFF Differential Comment AUTO DIFF CONFIRMED Platelet Morphology Comment CLUMPED Blood Urea Nitrogen 16 MG/DL Creatinine 0.85 MG/DL Random Glucose 108 MG/DL Calcium Level 9.4 MG/DL Sodium Level 137 MEQ/L Potassium Level 3.7 MEQ/L Chloride Level 102 MEQ/L Carbon Dioxide Level 24.8 MEQ/L Anion Gap 10 MEQ/L Estimat Glomerular Filtration Rate 83 ML/MIN Lactic Acid Level 1.3 mmol/L Human Chorionic Gonadotropin, Quant LESS THAN 1 MIU/ML Urine Color YELLOW Urine Turbidity SL CLOUDY Urine pH 5.0 Urine Specific [place] 1.025 Urine Protein NEG mg/dL Urine Glucose (UA) NEG mg/dL Urine Ketones NEG mg/dL Urine Occult Blood NEG Urine Nitrite NEG Urine Bilirubin NEG Urine Urobilinogen 0.2 MG/DL Urine Leukocyte Esterase SMALL Urine RBC 0-2 /hpf Urine WBC 6-8 /hpf Urine Squamous Epithelial Cells > 8 /hpf Urine Bacteria OCC /hpf Microscopic Urinalysis Comment CULT NOT INDICATED MDM Medical Record Reviewed: Yes Supervised Visit with SIMI: Yes Differential Diagnosis Acute sepsis, Narrative Course See narrative above Diagnosis Primary Impression: SIRS (systemic inflammatory response syndrome) Admitting Information Admitting Physician Requests: Admit Jf Knowles MD Jul 10, 2017 02:08
[2017-07-10] MEDS ORDERED: NALOXONE HCL 0.4 MG/ML AMP IV PUSH PRN (02:30)
[2017-07-10] MEDS ORDERED: ACETAMINOPHEN 325 MG TAB PO PRN (02:30)
[2017-07-10] MEDS ORDERED: ONDANSETRON HCL 4 MG/2 ML VIAL IVP PRN (02:30)
[2017-07-10] MEDS ORDERED: Vancomycin Consult Pharmacy 1 EA OTHER SCH (02:30)
[2017-07-10] MEDS ORDERED: SODIUM CHLORIDE 0.9% FLUSH 10 ML FLUSH IV FLUSH PRN (02:30)
[2017-07-10 02:34] VITALS: BP 106/61; PULSE 83; RESP 20; TEMP 98; O2SAT 98
[2017-07-10] MEDS: SODIUM CHLOR 0.9% 1000 ML INJ 1,000 ML IV SCH ×2 (02:52→10:00)
[2017-07-10 02:56] VITALS: PULSE 88
[2017-07-10 03:11] VITALS: BP 100/65; PULSE 99; RESP 20; TEMP 96.8; O2SAT 96
[2017-07-10] MEDS: PIPERACIL-TAZO 3.375 GM PREMIX 50 ML IV SCH ×2 (05:09→10:44)
[2017-07-10 08:00] VITALS: BP 107/59; PULSE 72; RESP 16; TEMP 98.5; O2SAT 96
[2017-07-10] MEDS ORDERED: SODIUM CHLORIDE 0.9% FLUSH 10 ML FLUSH IV FLUSH SCH (09:00)
--- NOTE | 2017-07-10 09:37 | HHI.HP ---
[facility] Service [facility] Primary Care Physician No Primary Care Physician Admission Diagnosis SIRS Diagnoses: (1) SIRS (systemic inflammatory response syndrome) Diagnosis: Principal (2) Leukocytosis Diagnosis: Principal (3) IV drug user Diagnosis: Principal Chief Complaint: Chills, nausea, vomiting, diarrhea. Travel History International Travel<30 Days: No Contact w/Intl Traveler <30 Da: No Traveled to Known Affected Are: No Sepsis Criteria SIRS Criteria (2 or more): Heart rate over 90, WBC > 21943, < 4000 or > 10% bands Criteria Outcome: Meets SIRS criteria History of Present Illness 21-year-old female patient denied any chronic medical illnesses who presented to the hospital for evaluation of nausea, vomiting, diarrhea, chills. He states his symptoms were ongoing for approximately 1-1/2 days. She had decreased p.o. intake. Because she did not get any better she thought she had the flu so she came to the emergency department for evaluation. Workup indicated leukocytosis with tachycardia. Patient met systemic inflammatory response syndrome criteria and it was recommended that the patient be admitted for further evaluation and management. No infectious source was identified,. Complicating factors would include the patient does have history of IV drug use with amphetamine and cocaine. She indicates that she has not used in approximately 2 weeks. She injected in her arms every other day. Patient has had rather complete workup done in the last 2 months. Patient had echocardiogram done 05/14/17 and 06/06/17 that did show normal systolic function with ejection fraction 60-65% without any signs of vegetation. Follow-up laboratories were performed which leukocytosis had completely returned to normal. Patient appears to have just significant dehydration. Clinically/ subjectively she has improved rather significantly over the last 12 hours. Review of Systems Constitutional: COMPLAINS OF: Chills Gastrointestinal: COMPLAINS OF: Diarrhea, Nausea, Vomiting Except as stated in HPI: all other systems reviewed are Neg Past Family Social History Past Medical History Patient denies any chronic medical illnesses, however medical records indicate: History of DVT and pulmonary emboli History of hypothyroidism during Past Surgical History Patient denies any previous surgery, however records indicate: Tonsillectomy Reported Medications No home medication Allergies: Coded Allergies: No Known Allergies (Verified Allergy, Unknown, 06/05/17) Family History Reviewed with patient and she indicates mother father in good health. No family history of heart disease, lung disease, diabetes, cancer, seizures, stroke Social History Patient denies any tobacco or alcohol use. States that she quit using IV drugs 2 weeks ago. Her drug of choice was amphetamines and cocaine. She is to inject every other day and to her arms Physical Exam Vital Signs Vital Signs Date Time Temp Pulse Resp B/P (MAP) Pulse Ox O2 Delivery O2 Flow Rate FiO2 07/10/17 08:00 98.5 72 16 107/59 (75) 96 07/10/17 03:11 96.8 99 20 100/65 (77) 96 07/10/17 02:57 07/10/17 02:56 88 07/10/17 02:34 98.0 83 20 106/61 (76) 98 07/10/17 00:45 82 20 102/53 (69) 97 07/09/17 23:45 98.2 88 20 102/65 (77) 98 07/09/17 22:45 84 20 93/56 (68) 97 07/09/17 22:40 87 18 90/62 (71) 99 07/09/17 22:30 20 07/09/17 22:00 98 18 81/52 (62) 97 07/09/17 21:50 96 18 87/58 (68) 07/09/17 21:14 97.3 123 14 93/52 (66) 96 Physical Exam GENERAL: Well-developed, well-nourished, in no acute distress. alert and orientated HEENT: Head is normocephalic without any lesions or masses noted. Facial features are symmetric. Eyes: Pupils equal round reactive to light. Extraocular muscles are intact. Conjunctivae were clear. Oropharyngeal: Pharynx without any erythema edema. Tongue is midline without deviation. Buccal mucosa is moist without any masses or lesions NECK: Supple without any masses. Trachea midline no deviation. No JVD, no bruits are appreciated CARDIAC: Regular rhythm, regular rate. S1/S2 are heard. 2/6 ejection murmur noted in mitral area. No gallops or rubs. LUNGS: Clear to auscultation bilaterally. No wheeze, rhonchi or rales. No use of accessory muscles on inspiration or expiration. ABDOMEN: Soft, nontender. Nondistended. Bowel sounds heard in all 4 quadrants. No organomegaly or masses. Negative rebound, negative guarding EXTREMITIES: No edema, pulses are equal bilaterally. No cyanosis or clubbing. Patient does have what appears to be possible insect bites or puncture wounds noted around the wrist and arms NEUROLOGY: Mood and affect appear appropriate. Cranial nerves II through XII grossly intact. Muscle strength 5/5 in upper and lower extremities bilaterally. Deep tendon reflexes are 2+ in upper and lower extremities bilaterally. Laboratory Laboratory Tests Test 07/09/17 22:20 07/09/17 23:45 07/10/17 01:05 White Blood Count 23.0 Red Blood Count 6.65 Hemoglobin 17.6 Hematocrit 54.9 Mean Corpuscular Volume 82.6 Mean Corpuscular Hemoglobin 26.5 Mean Corpuscular Hemoglobin Concent 32.1 Red Cell Distribution Width 15.9 Platelet Count 209 Mean Platelet Volume 8.1 Neutrophils (%) (Auto) 90.2 Lymphocytes (%) (Auto) 4.7 Monocytes (%) (Auto) 1.5 Eosinophils (%) (Auto) 0.3 Basophils (%) (Auto) 3.3 Neutrophils # (Auto) 20.7 Lymphocytes # (Auto) 1.1 Monocytes # (Auto) 0.3 Eosinophils # (Auto) 0.1 Basophils # (Auto) 0.8 CBC Comment AUTO DIFF Differential Comment AUTO DIFF CONFIRMED Platelet Morphology Comment CLUMPED Blood Urea Nitrogen 16 Creatinine 0.85 Random Glucose 108 Calcium Level 9.4 Sodium Level 137 Potassium Level 3.7 Chloride Level 102 Carbon Dioxide Level 24.8 Anion Gap 10 Estimat Glomerular Filtration Rate 83 Lactic Acid Level 1.3 Human Chorionic Gonadotropin, Quant LESS THAN 1 Urine Color YELLOW Urine Turbidity SL CLOUDY Urine pH 5.0 Urine Specific [place] 1.025 Urine Protein NEG Urine Glucose (UA) NEG Urine Ketones NEG Urine Occult Blood NEG Urine Nitrite NEG Urine Bilirubin NEG Urine Urobilinogen 0.2 Urine Leukocyte Esterase SMALL Urine RBC 0-2 Urine WBC 6-8 Urine Squamous Epithelial Cells > 8 Urine Bacteria OCC Microscopic Urinalysis Comment CULT NOT INDICATED Date/Time Source Procedure Growth Status 07/09/17 23:45 Blood Peripheral Aerobic Blood Culture Pending Received 07/09/17 23:45 Blood Peripheral Anaerobic Blood Culture Pending Received 07/10/17 01:05 Nasal Washing Influenza Types A,B Antigen (FLEX) - Final NEGATIVE FOR FLU A AND B ANTIGEN.... Complete Result Diagram: 07/09/17221907/09/17 222 Imaging Last Impressions Chest X-Ray 07/09/17 0000 Signed Impressions: Service Date/Time: Sunday, July 09, 2017 22:58 - CONCLUSION: The lungs are clear. MD Sergio Randall VTE Risk Assessment Caprini VTE Risk Assessment: Mod/High Risk (score >= 2) Caprini Risk Assessment Model Point Value = 1 Point Value = 2 Point Value = 3 Point Value = 5 Age 41-60 Minor surgery BMI > 25 kg/m2 Swollen legs Varicose veins or History of unexplained or recurrent spontaneous Oral contraceptives or hormone replacement Sepsis (< 1 month) Serious lung disease, including pneumonia (< 1 month) Abnormal pulmonary function Acute myocardial infarction Congestive heart failure (< 1 month) History of inflammatory bowel disease Medical patient at bed rest Age 61-74 Arthroscopic surgery Major open surgery (> 45 min) Laparoscopic surgery (> 45 min) Malignancy Confined to bed (> 72 hours) Immobilizing plaster cast Central venous access Age >= 75 History of VTE Family history of VTE Factor V Leiden Prothrombin [id number] Lupus anticoagulant Anticardiolipin antibodies Elevated serum homocysteine Heparin-induced thrombocytopenia Other congenital or acquired thrombophilia Stroke (< 1 month) Elective arthroplasty Hip, pelvis, or leg fracture Acute spinal cord injury (< 1 month) Prophylaxis Regimen Total Risk Factor Score Risk Level Prophylaxis Regimen 0-1 Low Early ambulation 2 Moderate Order ONE of the following: *Sequential Compression Device (SCD) *Heparin 5000 units SQ BID 3-4 Higher Order ONE of the following medications: *Heparin 5000 units SQ TID *Enoxaparin/Lovenox 40 mg SQ daily (WT < 150 kg, CrCl > 30 mL/min) *Enoxaparin/Lovenox 30 mg SQ daily (WT < 150 kg, CrCl > 10-29 mL/min) *Enoxaparin/Lovenox 30 mg SQ BID (WT < 150 kg, CrCl > 30 mL/min) AND/OR *Sequential Compression Device (SCD) 5 or more Highest Order ONE of the following medications: *Heparin 5000 units SQ TID (Preferred with Epidurals) *Enoxaparin/Lovenox 40 mg SQ daily (WT < 150 kg, CrCl > 30 mL/min) *Enoxaparin/Lovenox 30 mg SQ daily (WT < 150 kg, CrCl > 10-29 mL/min) *Enoxaparin/Lovenox 30 mg SQ BID (WT < 150 kg, CrCl > 30 mL/min) AND *Sequential Compression Device (SCD) Assessment and Plan Assessment and Plan Systemic inflammatory response syndrome Patient met criteria on admission with leukocytosis, tachycardia, no infectious source was appreciated Influenza testing was negative, urinalysis was clear, chest x-ray was clear, lactic acid was normal Blood cultures are negative for 1 day Continue to follow CBC, leukocytosis could be secondary to infection versus concentrated from nausea, vomiting, diarrhea. Repeat CBC shows completely normal leukocytes Echocardiogram done on 05/14/17 and 06/06/17 does not indicate any vegetation. Showed normal systolic function. Ejection fraction 60-65%. Trace Mitral valve regurgitation, trace of tricuspid valve regurgitation Patient started on vancomycin and Zosyn, will discontinue antibiotics Patient with recent history of pulmonary emboli and DVT in the left lower extremity Patient supposed to be on Xarelto patient states too expensive to continue Discussed with Case management who will provide patient with coupon for free medication DVT prevention Sequential compression devices Subcutaneous heparin Discharge disposition Discharge home in stable condition Activity: Ad hannah. Diet: Regular diet Medications per medication reconciliation Follow-up with primary medical doctor in one week Physician Certification 2 Midnight Certification Type: Admission for Inpatient Services Order for Inpatient Services The services are ordered in accordance with Medicare regulations or non- Medicare payer requirements, as applicable. In the case of services not specified as inpatient-only, they are appropriately provided as inpatient services in accordance with the 2-midnight benchmark. Estimated LOS (days): 2 days is the estimated time the patient will need to remain in the hospital, assuming treatment plan goals are met and no additional complications. Post-Hospital Plan: Not yet determined Sumit Colvin Jul 10, 2017 09:37
[2017-07-10 10:36] LABS: BASOPHIL % 0.4 % (0.0-2.0); EOSINOPHIL # 0.1 TH/MM3 (0-0.4); EOSINOPHIL % 0.9 % (0.0-4.0); HEMATOCRIT 39.7 % (35.0-46.0); HEMOGLOBIN 12.5 GM/DL (11.6-15.3); LYMPH % 21.3 % (9.0-44.0); LYMPHOCYTE # 1.5 TH/MM3 (1.0-4.8); MEAN CORPUSCULAR HEMOGLOBIN 25.8 PG (27.0-34.0); MEAN CORPUSCULAR HGB CONC 31.5 % (32.0-36.0); MEAN PLATELET VOLUME 7.4 FL (7.0-11.0); MONO % 5.8 % (0.0-8.0); MONOCYTE # 0.4 TH/MM3 (0-0.9); NEUT % 71.6 % (16.0-70.0); PLATELET COUNT 247 TH/MM3 (150-450); RED BLOOD COUNT 4.85 MIL/MM3 (4.00-5.30); RED CELL DISTRIBUTION WIDTH 15.9 % (11.6-17.2)
[2017-07-10] MEDS ORDERED: HEPARIN SODIUM - SQ 10,000 UNITS/ML VIAL SQ SCH (11:00)
[2017-07-10 12:00] VITALS: BP 104/60; PULSE 70; RESP 16; TEMP 97.6; O2SAT 97
[2017-07-10] MEDS ORDERED: VANCOMYCIN 1,000 MG/NS 250 ML IV SCH ×2 (12:00)
--- NOTE | 2017-07-10 12:05 | HHI.DCPOC ---
Discharge Care Plan Diagnosis: (1) SIRS (systemic inflammatory response syndrome) (2) Leukocytosis (3) IV drug user Goals to Promote Your Health * To prevent worsening of your condition and complications * To maintain your health at the optimal level Directions to Meet Your Goals Take your medications as prescribed Follow your dietary instruction Follow activity as directed Keep your appointments as scheduled Take your immunizations and boosters as scheduled If your symptoms worsen call your PCP, if no PCP go to Urgent Care Center or Emergency Room Smoking is Dangerous to Your Health. Avoid second hand smoke Call the 24-hour hour crisis hotline for domestic abuse at Sumit Colvin Jul 10, 2017 12:05
[2017-07-10] MEDS ORDERED: XARE20TA PO (12:12)
[2017-07-11] MEDS ORDERED: PHARMACY ORDERED LAB ONE (11:45)
== END 2017-07-10 16:57 | disposition home or self-care (01) ==
LOC: PHED 21:07 → PHEDA 07-10 02:17 → INTOOBSV 07-10 02:17 → UNDOADMOB 07-10 02:17 → PHEDA 07-10 02:46 → PH3A 07-10 02:46
PROVIDERS: ADMIT Hospitalist; ATTEND Hospitalist
DX: R65.10 Systemic inflammatory response syndrome (SIRS) of non-infectious origin without acute organ dysfunction (principal); D72.829 Elevated white blood cell count, unspecified; R05 Cough; R00.0 Tachycardia, unspecified; E86.0 Dehydration; I95.9 Hypotension, unspecified; F41.9 Anxiety disorder, unspecified; F32.9 Major depressive disorder, single episode, unspecified; F19.90 Other psychoactive substance use, unspecified, uncomplicated; Z87.891 Personal history of nicotine dependence; Z86.718 Personal history of other venous thrombosis and embolism; Z86.711 Personal history of pulmonary embolism
CPT/HCPCS: 71045; 80048; 81001; 83605; 84702; 84703; 85025; 87040; 87804; 96361; 96365; 96366; 96372; 96375; 96376; 99285; G0378; J1644; J2405; J2543; J3370; J7030; J7050

== ENCOUNTER 2017-08-08 02:39 | Emergency (ER) | payer OTHER ==
[~2017-08-08] VITALS: Ht 162.6 cm; Wt 50.0 kg
[~2017-08-08 02:39] MED LIST changes: -APIX5TAB PO; -CEPH-460 PO
[2017-08-08 02:51] VITALS: BP 123/76; PULSE 106; RESP 18; TEMP 97.9; O2SAT 97
[2017-08-08 03:52] LABS: AUTOMATED NEUTROPHIL # 8.5 TH/MM3 (1.8-7.7); BASOPHIL % 0.4 % (0.0-2.0); EOSINOPHIL # 0.1 TH/MM3 (0-0.4); HEMOGLOBIN 14.9 GM/DL (11.6-15.3); LYMPHOCYTE # 1.9 TH/MM3 (1.0-4.8); MEAN CELL VOLUME 83.4 FL (80.0-100.0); MEAN CORPUSCULAR HEMOGLOBIN 28.2 PG (27.0-34.0); MEAN CORPUSCULAR HGB CONC 33.9 % (32.0-36.0); MEAN PLATELET VOLUME 7.3 FL (7.0-11.0); MONO % 6.9 % (0.0-8.0); MONOCYTE # 0.8 TH/MM3 (0-0.9); NEUT % 74.7 % (16.0-70.0); PLATELET COUNT 292 TH/MM3 (150-450); RED BLOOD COUNT 5.28 MIL/MM3 (4.00-5.30); RED CELL DISTRIBUTION WIDTH 17.1 % (11.6-17.2); WHITE BLOOD COUNT 11.4 TH/MM3 (4.0-11.0)
[2017-08-08 03:59] LABS: BACTERIA, URINE MANY /hpf; BILIRUBIN, URINE NEG (NEG); BLOOD, URINE MOD (NEG); GLUCOSE,URINE NEG (NEG); HYALINE CAST, URINE 14 /lpf (RARE); KETONE, URINE NEG (NEG); MUCUS URINE FEW /lpf (OCC); NITRITE,URINE NEG (NEG); PH, URINE 5.5 (5.0-8.5); SQUAMOUS EPITHELIAL CELL URINE 4 /hpf (0-5); URINE COLOR YELLOW (YELLW/STRAW); URINE LEUKOCYTE ESTERASE LARGE (NEG); WHITE BLOOD CELL CLUMPS MANY
[2017-08-08 04:20] LABS: ALBUMIN 4.5 GM/DL (3.4-5.0); ALKALINE PHOSPHATASE 119 U/L (45-117); ALT (GPT) 41 U/L (10-53); AST (GOT) 23 U/L (15-37); BICARBONATE 23.7 MEQ/L (21.0-32.0); BLOOD UREA NITROGEN 6 MG/DL (7-18); CALCIUM 9.1 MG/DL (8.5-10.1); CHLORIDE 101 MEQ/L (98-107); CREATININE 0.85 MG/DL (0.50-1.00); GLOMERULAR FILTRATION RATE 83 ML/MIN (>89); GLUCOSE,RANDOM 84 MG/DL (74-106); SODIUM (NA) 137 MEQ/L (136-145); TOTAL BILIRUBIN ADULT 0.9 MG/DL (0.2-1.0); TOTAL PROTEIN 9.1 GM/DL (6.4-8.2)
[2017-08-08 04:22] LABS: ACETAMINOPHEN LESS THAN 2.0 MCG/ML (10.0-30.0)
--- NOTE | 2017-08-08 04:40 | PD ---
HPI Chief Complaint: Psychiatric Symptoms Time Seen by Provider: 02:48 Travel History International Travel<30 days: No Contact w/Intl Traveler<30days: No Traveled to known affect area: No History of Present Illness HPI The patient is a 21 year old female who presents to the [facility] emergency department with a history of according to ambulance services being found in the road walking and refusing to comply with getting out of the room. Patient according to ambulance services was Fitch acted prior to arrival. The patient was reportedly agitated prior to arrival, however by the time she was received in the emergency department, the patient is calm and cooperative. The patient reports a history of using LSD and methamphetamines. At this time, the patient denies any suicidal or homicidal ideations from reviewing the electronic medical record, the patient has a prior history of IV drug use. The patient also according to the record has a history of DVT and PE as well as hypothyroid disorder. At this time, the patient denies having any acute complaints. She denies having any known recent fevers, cough or congestion, neck pain, chest pain, shortness of breath, abdominal pain, vomiting, diarrhea, urinary symptoms, or neurologic symptoms. [facility] Past Medical History Narrative Medical The patient's past medical history is significant for a history of DVT and PE, hypothyroid disorder, asthma in childhood, anxiety and depression Hx Anticoagulant Therapy: Yes Asthma: Yes ( CHILD) Blood Disorders: Yes (BLOOD CLOTS, DVT,PULMONARY EMBOLI) Anxiety: Yes Depression: Yes Cardiovascular Problems: Yes Diabetes: No Diminished Hearing: No Deep Vein Thrombosis: Yes Endocrine: Yes Genitourinary: No Headaches: Yes Medical other: Yes ("IM A DRUG ADDICT.") Musculoskeletal: No Neurologic: No Psychiatric: Yes Respiratory: Yes Immunizations Current: Yes Thyroid Disease: Yes (hx of hypo while ) ?: Not Menopausal: No : 1 Para: 1 Past Surgical History Narrative Surgical The patient's past surgical history is significant for a tonsillectomy Oral Surgery: Yes Tonsillectomy: Yes Other Surgery: Yes Social History Alcohol Use: Yes Tobacco Use: Yes Substance Use: Yes (METH, LSD, CRACK, MARIJUIANA) Allergies-Medications (Allergen,Severity, Reaction): Coded Allergies: No Known Allergies (Verified Allergy, Unknown, 06/05/17) Reported Meds & Prescriptions Reported Meds & Active Scripts Active Cipro (Ciprofloxacin HCl) 500 Mg Tab 500 Mg PO BID 7 Days Review of Systems Except as stated in HPI: all other systems reviewed are Neg General / Constitutional: No: Fever Eyes: No: Visual changes HENT: No: Headaches Cardiovascular: No: Chest Pain or Discomfort Respiratory: No: Shortness of Breath Gastrointestinal: No: Abdominal Pain Genitourinary: No: Dysuria Musculoskeletal: No: Pain Skin: No Rash Neurologic: No: Weakness, Focal Abnormalities, Change in Mentation, Slurred Speech, Sensory Disturbance Psychiatric: No: Depression Endocrine: No: Polydipsia Hematologic/Lymphatic: No: Easy Bruising Physical Exam Narrative General: The patient is a well-developed well-nourished female in no acute distress, sleeping soundly on my arrival to the room. She is easily arousable. Head and Neck exam: Head is normocephalic atraumatic. Eyes: EOMI, pupils are equal round and reactive to light. Nose: Midline septum with pink mucous membranes Mouth: Dentition unremarkable. Moist mucus membranes. Posterior oropharynx is not erythematous. No tonsillar hypertrophy. Uvula midline. Airway patent. Neck: No palpable lymphadenopathy. No nuchal rigidity. No thyromegaly. Cardiovascular: Regular rate and rhythm without murmurs, gallops, or rubs. Lungs: Clear to auscultation bilaterally. No wheezes, rhonchi, or rales. Abdomen: Soft, without tenderness to palpation in all 4 quadrants of the abdomen. No guarding, rebound, or rigidity. Normal bowel sounds are audible. No tenderness on palpation of McBurney's point. Negative Harrell sign. Extremities: No clubbing, cyanosis, or edema. 2+ pulses in all 4 extremities. Back: No spinous process tenderness to palpation. No costovertebral angle tenderness to palpation. Neurologic Exam: Grossly nonfocal. Skin Exam: No rash noted. Intact skin that is warm and dry. The patient has track wheat noted. Data Data Last Documented VS Vital Signs Date Time Temp Pulse Resp B/P (MAP) Pulse Ox O2 Delivery O2 Flow Rate FiO2 08/08/17 02:51 97.9 106 18 123/76 (92) 97 Orders Orders Complete Blood Count With Diff (08/08/17 03:14) Comprehensive Metabolic Panel (08/08/17 03:14) Thyroid Stimulating Hormone (08/08/17 03:14) Urinalysis - C+S If Indicated (08/08/17 03:14) Ed Urine Pregnancytest Poc (08/08/17 03:14) Iv Access Insert/Monitor (08/08/17 03:14) Ecg Monitoring (08/08/17 03:14) Psych Screen (08/08/17 03:14) Drug Screen, Random Urine (08/08/17 03:14) Alcohol (Ethanol) (08/08/17 03:14) Salicylates (Aspirin) (08/08/17 03:14) Tylenol (Acetaminophen) (08/08/17 03:14) Urine Culture (08/08/17 03:30) Potassium Chloride (Kcl) (08/08/17 05:00) Ceftriaxone Inj (Rocephin Inj) (08/08/17 05:00) Lidocaine 1% Inj (50 Ml) (Xylocaine 1% I (08/08/17 05:30) Ceftriaxone Inj (Rocephin Inj) (08/08/17 05:30) Labs Laboratory Tests Test 08/08/17 03:14 08/08/17 03:30 Urine Opiates Screen NEG Urine Barbiturates Screen NEG Urine Amphetamines Screen POS Urine Benzodiazepines Screen NEG Urine Cocaine Screen POS Urine Cannabinoids Screen NEG White Blood Count 11.4 TH/MM3 Red Blood Count 5.28 MIL/MM3 Hemoglobin 14.9 GM/DL Hematocrit 44.0 % Mean Corpuscular Volume 83.4 FL Mean Corpuscular Hemoglobin 28.2 PG Mean Corpuscular Hemoglobin Concent 33.9 % Red Cell Distribution Width 17.1 % Platelet Count 292 TH/MM3 Mean Platelet Volume 7.3 FL Neutrophils (%) (Auto) 74.7 % Lymphocytes (%) (Auto) 17.0 % Monocytes (%) (Auto) 6.9 % Eosinophils (%) (Auto) 1.0 % Basophils (%) (Auto) 0.4 % Neutrophils # (Auto) 8.5 TH/MM3 Lymphocytes # (Auto) 1.9 TH/MM3 Monocytes # (Auto) 0.8 TH/MM3 Eosinophils # (Auto) 0.1 TH/MM3 Basophils # (Auto) 0.0 TH/MM3 CBC Comment DIFF FINAL Differential Comment Urine Color YELLOW Urine Turbidity HAZY Urine pH 5.5 Urine Specific Rarden 1.007 Urine Protein 30 mg/dL Urine Glucose (UA) NEG mg/dL Urine Ketones NEG mg/dL Urine Occult Blood MOD Urine Nitrite NEG Urine Bilirubin NEG Urine Urobilinogen LESS THAN 2.0 MG/DL Urine Leukocyte Esterase LARGE Urine RBC 8 /hpf Urine WBC /hpf Urine WBC Clumps MANY Urine Squamous Epithelial Cells 4 /hpf Urine Bacteria MANY /hpf Urine Hyaline Casts 14 /lpf Urine Mucus FEW /lpf Microscopic Urinalysis Comment CULTURE INDICATED Blood Urea Nitrogen 6 MG/DL Creatinine 0.85 MG/DL Random Glucose 84 MG/DL Total Protein 9.1 GM/DL Albumin 4.5 GM/DL Calcium Level 9.1 MG/DL Alkaline Phosphatase 119 U/L Aspartate Amino Transf (AST/SGOT) 23 U/L Alanine Aminotransferase (ALT/SGPT) 41 U/L Total Bilirubin 0.9 MG/DL Sodium Level 137 MEQ/L Potassium Level 3.3 MEQ/L Chloride Level 101 MEQ/L Carbon Dioxide Level 23.7 MEQ/L Anion Gap 12 MEQ/L Estimat Glomerular Filtration Rate 83 ML/MIN Thyroid Stimulating Hormone 3rd Gen 1.880 uIU/ML Salicylates Level LESS THAN 1.7 MG/DL Acetaminophen Level LESS THAN 2.0 MCG/ML Ethyl Alcohol Level 37 MG/DL MDM Medical Decision Making Medical Screen Exam Complete: Yes Emergency Medical Condition: Yes Medical Record Reviewed: Yes Differential Diagnosis Depression with suicidal ideations, versus substance-induced mood disorder, versus polysubstance abuse Narrative Course During the course of the patient's emergency department visit, the patient's history, examination, and differential diagnosis were reviewed with the patient. The patient was placed on a cardiac technologist with oximetry and frequent blood pressure monitoring. The patient had IV access obtained and blood work sent for analysis. The patient's laboratory studies were reviewed and remarkable for a white count of 11.4, hemoglobin 14.9, platelets 292 with neutrophils 74.7. CMP is remarkable for potassium of 3.3 which was supplemented orally, BUN 6, GFR 83, alk phos 119, TSH 1.88, urine drug screen positive for amphetamines and cocaine , acetaminophen less than 2, alcohol level 37, salicylate less than 1.7, urinalysis shows 30 protein moderate occult blood large leukocyte esterase 8 RBCs innumerable WBCs with many clumps many bacteria, culture indicated. The patient was given Rocephin 1 g IM. The patient was given potassium supplement orally. The patient has been medically cleared for evaluation by the psychiatric screener and psychiatrist under a Fitch act. The patient had a prescription written for ciprofloxacin for her urinary tract infection. Sepsis Criteria SIRS Criteria (2 or more): Heart rate over 90 Diagnosis Primary Impression: Polysubstance abuse Additional Impression: Urinary tract infection Qualified Codes: N39.0 - Urinary tract infection, site not specified; R31.9 - Hematuria, unspecified Med/Other Pt SpecificInfo: Prescription(s) given Scripts Ciprofloxacin (Cipro) 500 Mg Tab 500 MG PO BID for Infection for 7 Days, #14 TAB 0 Refills Prov: Jami Padilla MD 08/08/17 Jami Padilla MD Aug 08, 2017 04:40
[2017-08-08] MEDS ORDERED: POTASSIUM CHLORIDE 20 MEQ CONTROLLED RELEASE TAB PO ONE (05:00)
[2017-08-08] MEDS ORDERED: cefTRIAXone INJ 1,000 MG in SODIUM CHLORIDE 0.9% INJ 100 ML IV ONE (05:00)
[2017-08-08] MEDS ORDERED: CIPR-9 PO (05:01)
[2017-08-08] MEDS ORDERED: LIDOCAINE HCL 1% 50 ML VIAL IM ONE (05:30)
[2017-08-08 05:50] VITALS: BP 121/79; PULSE 116; RESP 18; TEMP 99.2; O2SAT 97
[2017-08-08] MEDS ORDERED: CIPROFLOXACIN 500 MG TAB PO SCH (09:00)
[2017-08-08 14:10] VITALS: BP 97/61; PULSE 106; RESP 18
--- NOTE | 2017-08-08 18:20 | PD ---
Physical Exam Time Seen by Provider: 18:16 Narrative Initial providers note charted that the patient was a Fitch act. This patient did not come under Fitch act. She was brought in under [place] act. Patient has been given plenty of time to sleep and sober up. She has ready to go home. Data Data Last Documented VS Vital Signs Date Time Temp Pulse Resp B/P (MAP) Pulse Ox O2 Delivery O2 Flow Rate FiO2 08/08/17 14:10 106 18 97/61 (73) Room Air 08/08/17 05:50 99.2 97 Orders Orders Complete Blood Count With Diff (08/08/17 03:14) Comprehensive Metabolic Panel (08/08/17 03:14) Thyroid Stimulating Hormone (08/08/17 03:14) Urinalysis - C+S If Indicated (08/08/17 03:14) Ed Urine Pregnancytest Poc (08/08/17 03:14) Iv Access Insert/Monitor (08/08/17 03:14) Ecg Monitoring (08/08/17 03:14) Psych Screen (08/08/17 03:14) Drug Screen, Random Urine (08/08/17 03:14) Alcohol (Ethanol) (08/08/17 03:14) Salicylates (Aspirin) (08/08/17 03:14) Tylenol (Acetaminophen) (08/08/17 03:14) Urine Culture (08/08/17 03:30) Potassium Chloride (Kcl) (08/08/17 05:00) Ceftriaxone Inj (Rocephin Inj) (08/08/17 05:00) Lidocaine 1% Inj (50 Ml) (Xylocaine 1% I (08/08/17 05:30) Ceftriaxone Inj (Rocephin Inj) (08/08/17 05:30) Diet Regular Basic (08/08/17 Breakfast) Ciprofloxacin (Cipro) (08/08/17 09:00) Diet Regular Basic (08/08/17 Lunch) Diet Regular Basic (08/08/17 Dinner) Labs Laboratory Tests Test 08/08/17 03:14 08/08/17 03:30 Urine Opiates Screen NEG Urine Barbiturates Screen NEG Urine Amphetamines Screen POS Urine Benzodiazepines Screen NEG Urine Cocaine Screen POS Urine Cannabinoids Screen NEG White Blood Count 11.4 TH/MM3 Red Blood Count 5.28 MIL/MM3 Hemoglobin 14.9 GM/DL Hematocrit 44.0 % Mean Corpuscular Volume 83.4 FL Mean Corpuscular Hemoglobin 28.2 PG Mean Corpuscular Hemoglobin Concent 33.9 % Red Cell Distribution Width 17.1 % Platelet Count 292 TH/MM3 Mean Platelet Volume 7.3 FL Neutrophils (%) (Auto) 74.7 % Lymphocytes (%) (Auto) 17.0 % Monocytes (%) (Auto) 6.9 % Eosinophils (%) (Auto) 1.0 % Basophils (%) (Auto) 0.4 % Neutrophils # (Auto) 8.5 TH/MM3 Lymphocytes # (Auto) 1.9 TH/MM3 Monocytes # (Auto) 0.8 TH/MM3 Eosinophils # (Auto) 0.1 TH/MM3 Basophils # (Auto) 0.0 TH/MM3 CBC Comment DIFF FINAL Differential Comment Urine Color YELLOW Urine Turbidity HAZY Urine pH 5.5 Urine Specific Correll 1.007 Urine Protein 30 mg/dL Urine Glucose (UA) NEG mg/dL Urine Ketones NEG mg/dL Urine Occult Blood MOD Urine Nitrite NEG Urine Bilirubin NEG Urine Urobilinogen LESS THAN 2.0 MG/DL Urine Leukocyte Esterase LARGE Urine RBC 8 /hpf Urine WBC /hpf Urine WBC Clumps MANY Urine Squamous Epithelial Cells 4 /hpf Urine Bacteria MANY /hpf Urine Hyaline Casts 14 /lpf Urine Mucus FEW /lpf Microscopic Urinalysis Comment CULTURE INDICATED Blood Urea Nitrogen 6 MG/DL Creatinine 0.85 MG/DL Random Glucose 84 MG/DL Total Protein 9.1 GM/DL Albumin 4.5 GM/DL Calcium Level 9.1 MG/DL Alkaline Phosphatase 119 U/L Aspartate Amino Transf (AST/SGOT) 23 U/L Alanine Aminotransferase (ALT/SGPT) 41 U/L Total Bilirubin 0.9 MG/DL Sodium Level 137 MEQ/L Potassium Level 3.3 MEQ/L Chloride Level 101 MEQ/L Carbon Dioxide Level 23.7 MEQ/L Anion Gap 12 MEQ/L Estimat Glomerular Filtration Rate 83 ML/MIN Thyroid Stimulating Hormone 3rd Gen 1.880 uIU/ML Salicylates Level LESS THAN 1.7 MG/DL Acetaminophen Level LESS THAN 2.0 MCG/ML Ethyl Alcohol Level 37 MG/DL MDM Supervised Visit with SIMI: No Narrative Course Initial providers note charted that the patient was a Fitch act. This patient did not come under [employer] act. She was brought in under [place] act. Patient has been given plenty of time to sleep and sober up. She has ready to go home. Patient discharged with information for follow-up for rehab. Ciprofloxacin was prescribed for home for UTI. Instructed patient to follow up with primary care provider. Patient verbalizes understanding and agreement with treatment plan. Patient is medically cleared and stable for discharge. Discussed reasons to return to the emergency department. Patient agrees with treatment plan. The patients vital signs are stable and the patient is stable for outpatient follow-up and treatment. Patient discharged home, stable and in no acute distress. Diagnosis Primary Impression: Polysubstance abuse Additional Impression: Urinary tract infection Qualified Codes: N39.0 - Urinary tract infection, site not specified; R31.9 - Hematuria, unspecified Referrals: DARINEL (Out patient) [facility] Primary Care Physician Mar[facility] Patient Instructions: General Instructions, Polysubstance Abuse (ED), Urinary Tract Infection in Women (ED) Additional Instruction: Contract safety to your self and others Stop using drugs Follow-up with psychiatry Follow-up with primary care provider Follow-up with Matthew Vergara Return to the emergency department immediately with worsening of symptoms Med/Other Pt SpecificInfo: Prescription(s) given Scripts Ciprofloxacin (Cipro) 500 Mg Tab 500 MG PO BID for Infection for 7 Days, #14 TAB 0 Refills Prov: Jami Padilla MD 08/08/17 Disposition: 01 DISCHARGE HOME Condition: Stable Jodi Garza Aug 08, 2017 18:20
== END 2017-08-08 18:54 | disposition home or self-care (01) ==
LOC: NEPC 02:39 → NEPJ 18:54
DX: F15.10 Other stimulant abuse, uncomplicated (principal); F14.90 Cocaine use, unspecified, uncomplicated; N39.0 Urinary tract infection, site not specified; B96.20 Unspecified Escherichia coli [E. coli] as the cause of diseases classified elsewhere; E03.9 Hypothyroidism, unspecified; F41.9 Anxiety disorder, unspecified; Z72.0 Tobacco use; Z86.718 Personal history of other venous thrombosis and embolism; Z86.711 Personal history of pulmonary embolism
CPT/HCPCS: 80053; 80307; 81001; 84443; 84703; 85025; 87077; 87086; 87186; 96372; 99283; J0696

== ENCOUNTER 2017-10-15 13:08 | Emergency (ER) | payer SELFPAY ==
[~2017-10-15] VITALS: Ht 162.6 cm; Wt 56.0 kg
[~2017-10-15 13:08] MED LIST changes: +CIPR-9 PO; -XARE20TA PO
[2017-10-15 13:53] VITALS: BP 106/62; PULSE 77; RESP 14; TEMP 97.9; O2SAT 99
== END 2017-10-15 14:40 | disposition left against medical advice (07) ==
LOC: NEPD 13:08
DX: R10.9 Unspecified abdominal pain (principal)
CPT/HCPCS: 99281